=== PATIENT | female | born 1950 | race Caucasian/White ===

== ENCOUNTER 2017-08-06 09:12 | Inpatient (IN) | payer MEDICARE, OTHER ==
[~2017-08-06] VITALS: Ht 160 cm; Wt 77.0 kg
[2017-08-06 09:57] LABS: Basophils # (auto) 0.1 uL; Basophils % (auto) 0.6 % (0.0-2.0); Eosinophils # (auto) 0.2 uL; Eosinophils % (auto) 1.1 % (0.0-7.0); Hematocrit 36.5 % (36.0-46.0); Hemoglobin 12.1 g/dL (12.2-16.2); Lymphocytes # (auto) 2.2 uL; Lymphocytes % (auto) 15.6 % (10.0-50.0); Mean Corpuscular Hemoglobin 30.7 pg (28.0-32.0); Mean Corpuscular Hgb Conc. 33.2 g/dL (32.0-36.0); Mean Corpuscular Volume 92.4 fL (80.0-100.0); Monocytes % (auto) 7.4 % (0.0-12.0); Neutrophils # (auto) 10.6 uL; Neutrophils % (auto) 75.3 % (37.0-80.0); Nucleated Red Blood Cells % 0.1 %; Platelet Count (auto) 405 10^3/uL (140-450); Red Blood Cells 3.95 10^6/uL (4.0-5.20); Red Cell Distribution Width 15.1 % (11.8-14.3)
[2017-08-06] MEDS ORDERED: SODIUM CHLORIDE 0.9% 1,000 ML IV ONE (10:13)
[2017-08-06 10:20] LABS: Alanine Aminotransferase 19 U/L (13-56); Albumin 3.9 g/dL (3.4-5.0); Alkaline Phosphatase 65 U/L (45-117); Anion Gap 9 (5-15); Aspartate Aminotransferase 19 U/L (15-37); BUN/Creatinine Ratio 20.5; Bilirubin, Total 0.3 mg/dL (0.2-1.0); Blood Urea Nitrogen 17 mg/dL (7-18); Calcium 8.8 mg/dL (8.5-10.1); Carbon Dioxide 25 mmol/L (21-32); Chloride 105 mmol/L (98-107); GFR African American 88 mL/min; GFR Non-African American 73 mL/min; Glucose 106 mg/dL (74-106); Magnesium 2.5 mg/dL (1.6-2.6); Potassium 3.7 mmol/L (3.5-5.1); Sodium 139 mmol/L (136-145); Total Protein 7.4 g/dL (6.4-8.2)
[2017-08-06 11:03] LABS: INR 0.95 (0.9-1.15); Partial Thromboplastin Time 31.7 sec (23.78-33.04); Prothrombin Time 10.2 sec (9.27-12.13)
[2017-08-06 12:30] LABS: Urine Bacteria NONE SEEN /hpf (None Seen); Urine Blood Negative /uL (Negative); Urine Specific Gravity 1.007 (1.001-1.035); Urine WBC 2 /hpf (0 - 5)
[2017-08-06] MEDS: SODIUM CHLORIDE 0.9% 1,000 ML IV SCH ×2 (15:18→23:30)
[2017-08-06] MEDS ORDERED: cefTRIAXone 1GM/10ml IVPUSH 10 ML IV ONE (15:30)
[2017-08-06] MEDS ORDERED: NITROGLYCERIN 0.4 MG SL TAB SL PRN (15:30)
[2017-08-06] MEDS ORDERED: MORPHINE SULFATE 4 MG/ML SYR/VIAL IV PRN ×2 (15:30)
[2017-08-06] MEDS ORDERED: ACETAMINOPHEN 500 MG TAB PO PRN (15:30)
[2017-08-06] MEDS ORDERED: LACTULOSE 20Gm/30ML SOLN PO PRN (15:30)
[2017-08-06] MEDS ORDERED: LORazepam 0.5 MG TAB PO PRN (15:30)
[2017-08-06 15:51] LABS: Amylase 64 U/L (25-115)
[2017-08-06 15:54] LABS: Creatine Kinase IFCC 206 U/L (26-192)
[2017-08-06 16:07] LABS: Alcohol, Urine < 3.0 mg/dL (0-5); Amphetamine Screen, Urine NEGATIVE (NEGATIVE); Barbiturate Scree,Urine NEGATIVE (NEGATIVE); Benzodiazephine Screen, Urine POSITIVE (NEGATIVE); Cannabinoid Screen, Urine NEGATIVE (NEGATIVE); Cocaine Screen, Urine NEGATIVE (NEGATIVE); Opiate Scree,Urine NEGATIVE (NEGATIVE); Phencyclidine Screen, Urine NEGATIVE (NEGATIVE)
[2017-08-06] MEDS: metroNIDAZOLE 500MG/100ML 100 ML IV SCH ×2 (16:13→22:33)
[2017-08-06 18:58] LABS: Hematocrit 30.4 % (36.0-46.0); Hemoglobin 10.3 g/dL (12.2-16.2)
[2017-08-06 21:00] VITALS: BP 109/60
[2017-08-06 21:50] VITALS: BP 109/60
[2017-08-06] MEDS: TEMAZEPAM 15 MG CAP PO PRN (22:31)
[2017-08-07] MEDS ORDERED: CARI-316 PO (00:51)
[2017-08-07] MEDS ORDERED: TRAZ50TA2 PO (00:51)
[2017-08-07] MEDS ORDERED: OXAP-61 PO (00:51)
[2017-08-07] MEDS ORDERED: [UNRECOGNIZED DRUG - CODE] PO (00:51)
[2017-08-07 00:55] LABS: Hemoglobin 9.2 g/dL (12.2-16.2)
[2017-08-07] MEDS: metroNIDAZOLE 500MG/100ML 100 ML IV SCH ×4 (04:16→21:39)
[2017-08-07 04:45] VITALS: BP 120/67
[2017-08-07 05:40] LABS: Basophils # (auto) 0.1 uL; Basophils % (auto) 0.9 % (0.0-2.0); Eosinophils # (auto) 0.1 uL; Eosinophils % (auto) 1.6 % (0.0-7.0); Hematocrit 26.2 % (36.0-46.0); Lymphocytes # (auto) 2.6 uL; Lymphocytes % (auto) 31.8 % (10.0-50.0); Mean Corpuscular Hemoglobin 31.6 pg (28.0-32.0); Mean Corpuscular Hgb Conc. 34.2 g/dL (32.0-36.0); Mean Corpuscular Volume 92.4 fL (80.0-100.0); Monocytes # (auto) 0.8 uL; Monocytes % (auto) 9.3 % (0.0-12.0); Neutrophils # (auto) 4.6 uL; Neutrophils % (auto) 56.4 % (37.0-80.0); Platelet Count (auto) 283 10^3/uL (140-450); Red Blood Cells 2.84 10^6/uL (4.0-5.20); Red Cell Distribution Width 14.3 % (11.8-14.3); White Blood Cell 8.2 10^3/uL (4.4-10.8)
[2017-08-07 06:07] LABS: Cholesterol 176 mg/dL (< 200); HDL Cholesterol 46 mg/dL (40-59); LDL Cholesterol 110 mg/dL (< 100); Triglycerides 94 mg/dL (< 150)
[2017-08-07] MEDS: HYDROcodone-ACET 5/325MG TAB PO PRN ×2 (07:39→13:32)
[2017-08-07 08:34] LABS: Carcinoembryonic Antigen 2.03 ng/mL (<5.0 OR =); Folate (Folic Acid) 13.76 ng/mL (5.38-24)
[2017-08-07 08:48] VITALS: BP 98/59
[2017-08-07] MEDS: SODIUM CHLORIDE 0.9% 1,000 ML IV SCH ×2 (09:25→17:25)
[2017-08-07] MEDS: PANTOPRAZOLE 40 MG TAB PO SCH (09:36)
[2017-08-07] MEDS: ENOXAPARIN SOD 40 MG/0.4 ML SYRINGE SC SCH (09:36)
[2017-08-07] MEDS: cefTRIAXone 1GM/10ml IVPUSH 10 ML IV SCH (09:36)
[2017-08-07] MEDS ORDERED: MORPHINE SULFATE 8mg/ml INJ SDV IV PRN (09:45)
[2017-08-07] MEDS: MORPHINE SULFATE 8mg/ml INJ SDV IV PRN ×4 (10:11→19:10)
[2017-08-07] MEDS: PROMETHAZINE HCL 25 MG/ML 1ML IV PRN (10:11)
[2017-08-07 12:00] VITALS: BP 113/54
[2017-08-07 12:01] LABS: Free T3 2.52 pg/mL (2.3-4.2); Free T4 (Free Thyroxine) 0.97 ng/dL (0.89-1.76)
[2017-08-07] MEDS ORDERED: GOLYTELY 4L KIT PO ONE (13:15)
[2017-08-07 14:57] LABS: Hematocrit 26.4 % (36.0-46.0)
[2017-08-07 17:00] VITALS: BP 133/49
[2017-08-07 22:00] VITALS: BP 116/51
[2017-08-07] MEDS ORDERED: CARISOPRODOL 350 MG TAB PO SCH (22:00)
[2017-08-07] MEDS: TEMAZEPAM 15 MG CAP PO PRN (22:06)
[2017-08-08] MEDS: SODIUM CHLORIDE 0.9% 1,000 ML IV SCH ×2 (03:40→10:39)
[2017-08-08] MEDS: metroNIDAZOLE 500MG/100ML 100 ML IV SCH ×2 (03:41→10:40)
[2017-08-08 05:10] VITALS: BP 102/53
[2017-08-08] MEDS ORDERED: GOLYTELY 4L KIT PO ONE (06:00)
[2017-08-08 06:25] LABS: Basophils # (auto) 0.1 uL; Eosinophils # (auto) 0.2 uL; Lymphocytes # (auto) 2.5 uL; Monocytes # (auto) 0.8 uL; White Blood Cell 8.9 10^3/uL (4.4-10.8)
[2017-08-08 06:27] LABS: Eosinophils % (auto) 2.7 % (0.0-7.0); Hematocrit 23.3 % (36.0-46.0); Lymphocytes % (auto) 27.6 % (10.0-50.0); Mean Corpuscular Hemoglobin 31.7 pg (28.0-32.0); Mean Corpuscular Hgb Conc. 34.2 g/dL (32.0-36.0); Mean Corpuscular Volume 92.7 fL (80.0-100.0); Monocytes % (auto) 8.6 % (0.0-12.0); Neutrophils # (auto) 5.4 uL; Neutrophils % (auto) 60.1 % (37.0-80.0); Platelet Count (auto) 274 10^3/uL (140-450); Red Blood Cells 2.51 10^6/uL (4.0-5.20); Red Cell Distribution Width 14.7 % (11.8-14.3)
[2017-08-08 06:43] LABS: Calcium 7.4 mg/dL (8.5-10.1); Potassium 3.4 mmol/L (3.5-5.1)
[2017-08-08 06:45] LABS: BUN/Creatinine Ratio 14.8
[2017-08-08] MEDS: HYDROcodone-ACET 5/325MG TAB PO PRN ×2 (07:38→13:47)
[2017-08-08] MEDS ORDERED: NALOXONE HCL 0.4 MG/ML VIAL ONE (08:16)
[2017-08-08] MEDS ORDERED: FLUMAZENIL 0.1 MG/ML INJ 10ML MDV IV ONE (08:16)
[2017-08-08] MEDS ORDERED: SODIUM CHLORIDE LOCK 10 ML ONE (08:16)
[2017-08-08] MEDS ORDERED: diphenhdrAMINE HCL 50 MG/1 ML VL ONE (08:17)
[2017-08-08 08:42] VITALS: BP 98/63
[2017-08-08] MEDS ORDERED: traZODone HCL 50 MG TAB PO SCH (10:00)
[2017-08-08] MEDS: cefTRIAXone 1GM/10ml IVPUSH 10 ML IV SCH (10:39)
[2017-08-08] MEDS ORDERED: CARISOPRODOL 350 MG TAB PO ONE (10:45)
[2017-08-08] MEDS ORDERED: POTASSIUM CHL 20MEQ/100ML 100 ML IV ONE (11:00)
[2017-08-08] MEDS: MIDAZOLAM HCL 5 MG/ML-1ML VIAL ONE ×3 (11:55→12:11)
[2017-08-08] MEDS: fentaNYL CITRATE 100 MCG/2 ML VL ONE ×3 (11:55→12:11)
[2017-08-08] MEDS: PANTOPRAZOLE 40 MG TAB PO SCH (13:45)
[2017-08-08] MEDS: ENOXAPARIN SOD 40 MG/0.4 ML SYRINGE SC SCH (13:46)
[2017-08-08] MEDS: PROMETHAZINE HCL 25 MG/ML 1ML IV PRN (13:47)
[2017-08-08] MEDS: MORPHINE SULFATE 8mg/ml INJ SDV IV PRN ×2 (13:48→17:16)
[2017-08-08 14:13] LABS: Hematocrit 24.4 % (36.0-46.0); Hemoglobin 8.3 g/dL (12.2-16.2)
[2017-08-08 14:51] VITALS: BP 98/63
[2017-08-08 17:00] VITALS: BP 125/67
[2017-08-08 18:10] VITALS: BP 104/67
[2017-08-08 18:42] LABS: Hematocrit 28.9 % (36.0-46.0); Hemoglobin 9.6 g/dL (12.2-16.2)
[2017-08-08 20:19] VITALS: BP 104/67
[2017-08-08] MEDS ORDERED: CARISOPRODOL 350 MG TAB PO SCH (22:00)
== END 2017-08-08 21:20 | disposition home or self-care (01) | DRG 378 ==
LOC: ER 09:12 → TELE 09:13 → TELE-EAST 20:38
PROVIDERS: ADMIT Internal Medicine; ATTEND Internal Medicine
PROC: 30233N1 Transfusion of Nonautologous Red Blood Cells into Peripheral Vein, Percutaneous Approach (ICD-10-PCS; 2017-08-08)
PROC: 0DJD8ZZ Inspection of Lower Intestinal Tract, Via Natural or Artificial Opening Endoscopic (ICD-10-PCS; principal; 2017-08-08 11:47)
DX: K57.31 Diverticulosis of large intestine without perforation or abscess with bleeding (principal); D62 Acute posthemorrhagic anemia; E03.9 Hypothyroidism, unspecified; M79.7 Fibromyalgia; G47.00 Insomnia, unspecified; K59.00 Constipation, unspecified; K64.8 Other hemorrhoids; F32.9 Major depressive disorder, single episode, unspecified; F41.9 Anxiety disorder, unspecified; K60.2 Anal fissure, unspecified; Z80.0 Family history of malignant neoplasm of digestive organs; Z82.49 Family history of ischemic heart disease and other diseases of the circulatory system; Z90.89 Acquired absence of other organs; Z88.5 Allergy status to narcotic agent; Z91.012 Allergy to eggs; Z71.3 Dietary counseling and surveillance
CPT/HCPCS: 36415; 71046; 74176; 76775; 80048; 80053; 80061; 80307; 81001; 82150; 82378; 82550; 82607; 82746; 83690; 83735; 84439; 84443; 84481; 84484; 85014; 85018; 85025; 85045; 85610; 85652; 85730; 86850; 86900; 86901; 86920; 93005; 94761; 96361; 96374; J2250; J2270; J3480; J3490

== ENCOUNTER 2019-08-13 17:05 | Inpatient (IN) | payer MEDICARE, OTHER ==
[~2019-08-13] VITALS: Ht 160 cm; Wt 81.6 kg
[~2019-08-13 17:05] MED LIST: CARI350T22 PO; OXAP-61 PO; TRAZ50TA2 PO; [UNRECOGNIZED DRUG - CODE] PO
[2019-08-13] MEDS ORDERED: SODIUM CHLORIDE 0.9% 500 ML IVB ONE (17:25)
[2019-08-13] MEDS ORDERED: PANTOPRAZOLE 40 MG/10 ML VIAL INJ IV STA (17:25)
[2019-08-13 18:17] LABS: Basophils # (auto) 0 10 ^3/uL (0-0.2); Basophils % (auto) 0.2 % (0.0-2.0); Eosinophils # (auto) 0 10 ^3/uL (0-0.8); Eosinophils % (auto) 0.2 % (0.0-7.0); Hematocrit 36.8 % (36.0-46.0); Hemoglobin 12.1 g/dL (12.2-16.2); Lymphocytes # (auto) 1.2 10 ^3/uL (0.4-5.4); Lymphocytes % (auto) 7.7 % (10.0-50.0); Mean Corpuscular Hemoglobin 29.7 pg (28.0-32.0); Mean Corpuscular Hgb Conc. 32.9 g/dL (32.0-36.0); Mean Corpuscular Volume 90.3 fL (80.0-100.0); Monocytes # (auto) 0.5 10 ^3/uL (0-1.3); Neutrophils # (auto) 13.9 10 ^3/uL (1.6-8.6); Neutrophils % (auto) 88.9 % (37.0-80.0); Platelet Count (auto) 386 10^3/uL (140-450); Red Blood Cells 4.08 10^6/uL (4.0-5.20); Red Cell Distribution Width 14.5 % (11.8-14.3); White Blood Cell 15.6 10^3/uL (4.4-10.8)
[2019-08-13 18:30] LABS: Albumin 3.7 g/dL (3.4-5.0); Anion Gap 9 (5-15); Blood Urea Nitrogen 18 mg/dL (7-18); Calcium 9.3 mg/dL (8.5-10.1); Carbon Dioxide 21 mmol/L (21-32); Chloride 108 mmol/L (98-107); Glucose 117 mg/dL (74-106); Potassium 3.5 mmol/L (3.5-5.1); Sodium 138 mmol/L (136-145)
[2019-08-13 18:35] LABS: Alanine Aminotransferase 20 U/L (13-56); Alkaline Phosphatase 82 U/L (45-117); Aspartate Aminotransferase 16 U/L (15-37); BUN/Creatinine Ratio 24.3; Bilirubin, Total 0.4 mg/dL (0.2-1.0); GFR African American 100 mL/min; GFR Non-African American 82 mL/min
[2019-08-13 19:27] LABS: Urine Bacteria NONE SEEN /hpf (None Seen); Urine Blood Negative /uL (Negative); Urine Mucus FEW (None Seen); Urine Specific Gravity 1.015 (1.001-1.035); Urine WBC 8 /hpf (0 - 5)
[2019-08-13] MEDS ORDERED: metroNIDAZOLE 500MG/100ML 100 ML IV ONE ×2 (20:00→22:45)
[2019-08-13] MEDS ORDERED: LORazepam 2MG/ML-1ML VIAL IV ONE (22:45)
[2019-08-13] MEDS ORDERED: cefTRIAXone 1GM/50ML D5W 50 ML IV ONE (22:45)
[2019-08-14 00:04] LABS: INR 1.06 (0.9-1.15); Partial Thromboplastin Time 32.5 sec (23.64-32.05)
[2019-08-14] MEDS ORDERED: ONDANSETRON HCL 4 MG/2 ML VIAL IV ONE (00:45)
[2019-08-14] MEDS ORDERED: MORPHINE SULFATE 4 MG/ML SYR/VIAL IV ONE (00:45)
[2019-08-14] MEDS ORDERED: NITROGLYCERIN 0.4 MG SL TAB SL PRN (01:00)
[2019-08-14] MEDS: SODIUM CHLORIDE 0.9% 1,000 ML IV SCH ×3 (01:00→22:50)
[2019-08-14] MEDS ORDERED: MORPHINE SULF INJ 2 MG/ML SYRINGE 1ML IV PRN (01:00)
[2019-08-14 05:00] VITALS: BP 114/65
[2019-08-14] MEDS ORDERED: SIMV-8 PO (05:15)
[2019-08-14] MEDS ORDERED: MELO1TAB56 PO (05:15)
[2019-08-14] MEDS: metroNIDAZOLE 500MG/100ML 100 ML IV SCH ×3 (06:17→22:44)
[2019-08-14 09:55] LABS: Albumin 3.3 g/dL (3.4-5.0); Calcium 8.3 mg/dL (8.5-10.1); Magnesium 2.5 mg/dL (1.6-2.6)
[2019-08-14] MEDS: PANTOPRAZOLE 40 MG/10 ML VIAL INJ IV SCH (09:58)
[2019-08-14] MEDS: cefTRIAXone 1GM/50ML D5W 50 ML IV SCH (09:59)
[2019-08-14 10:02] LABS: BUN/Creatinine Ratio 26.9; Bilirubin, Total 0.3 mg/dL (0.2-1.0); Phosphorus 2.1 mg/dL (2.5-4.90); Pre Albumin 18.5 mg/dL (20.0-40.0); Total Protein 7.3 g/dL (6.4-8.2)
[2019-08-14 13:00] VITALS: BP 112/50
[2019-08-14] MEDS ORDERED: TPN PER PHARMACY 0 ML IV SCH (14:30)
[2019-08-14] MEDS ORDERED: POTASSIUM PHOSP 26.4MEQ(18MMOL) IN NS 100 ML IV ONE (15:00)
[2019-08-14 17:00] VITALS: BP 123/59
[2019-08-14] MEDS ORDERED: CLINIMIX PER PHARMACY IV NR (20:00)
[2019-08-14] MEDS ORDERED: POTASSIUM CHL 20MEQ/100ML 100 ML IV ONE (21:30)
[2019-08-14 22:33] VITALS: BP 126/66
[2019-08-14] MEDS: ONDANSETRON HCL 4 MG/2 ML VIAL IV PRN (22:40)
[2019-08-14] MEDS: MORPHINE SULFATE 4 MG/ML SYR/VIAL IV PRN (22:40)
[2019-08-14] MEDS: InsuLIN REG 1unit/0.01ml Soln (100units/ml) SC SCH (23:25)
[2019-08-14] MEDS: ACCU-CHEK COMFORT CURVE STRIP VI SCH (23:25)
[2019-08-15] MEDS ORDERED: DEXTROSE (50%) 50ML SYRG IV SCH
[2019-08-15 05:00] VITALS: BP 120/66
[2019-08-15] MEDS: metroNIDAZOLE 500MG/100ML 100 ML IV SCH ×3 (05:45→22:38)
[2019-08-15] MEDS: ACCU-CHEK COMFORT CURVE STRIP VI SCH ×4 (05:45→23:52)
[2019-08-15] MEDS: InsuLIN REG 1unit/0.01ml Soln (100units/ml) SC SCH ×4 (05:50→23:52)
[2019-08-15 06:02] LABS: Basophils # (auto) 0.1 10 ^3/uL (0-0.2); Basophils % (auto) 0.6 % (0.0-2.0); Eosinophils # (auto) 0.2 10 ^3/uL (0-0.8); Hemoglobin 10.7 g/dL (12.2-16.2); Lymphocytes # (auto) 1.7 10 ^3/uL (0.4-5.4); Lymphocytes % (auto) 17.2 % (10.0-50.0); Mean Corpuscular Hemoglobin 30.7 pg (28.0-32.0); Mean Corpuscular Hgb Conc. 33.6 g/dL (32.0-36.0); Mean Corpuscular Volume 91.3 fL (80.0-100.0); Monocytes # (auto) 0.8 10 ^3/uL (0-1.3); Monocytes % (auto) 7.5 % (0.0-12.0); Neutrophils # (auto) 7.3 10 ^3/uL (1.6-8.6); Neutrophils % (auto) 72.7 % (37.0-80.0); Platelet Count (auto) 316 10^3/uL (140-450); Red Cell Distribution Width 14.8 % (11.8-14.3); White Blood Cell 10.1 10^3/uL (4.4-10.8)
[2019-08-15 06:21] LABS: Albumin 3.1 g/dL (3.4-5.0); Calcium 6.9 mg/dL (8.5-10.1); Magnesium 2.2 mg/dL (1.6-2.6); Potassium 3.1 mmol/L (3.5-5.1)
[2019-08-15 06:26] LABS: BUN/Creatinine Ratio 24.1; Bilirubin, Total 0.3 mg/dL (0.2-1.0); Phosphorus 1.9 mg/dL (2.5-4.90); Total Protein 6.6 g/dL (6.4-8.2)
[2019-08-15 09:00] VITALS: BP 127/73
[2019-08-15] MEDS: PANTOPRAZOLE 40 MG/10 ML VIAL INJ IV SCH (10:10)
[2019-08-15] MEDS: cefTRIAXone 1GM/50ML D5W 50 ML IV SCH (10:10)
[2019-08-15] MEDS ORDERED: LIDOCAINE 1% (LOCAL ANESTH.) PF 5ml SDV ID ONE (11:45)
[2019-08-15] MEDS: SODIUM CHLORIDE 0.9% 1,000 ML IV SCH ×2 (12:26→23:52)
[2019-08-15] MEDS: POTASSIUM CHL 20MEQ/100ML 100 ML IV SCH ×2 (12:26→15:54)
[2019-08-15 13:00] VITALS: BP 127/66
[2019-08-15 17:00] VITALS: BP 125/58
[2019-08-15] MEDS ORDERED: TPN PER PHARMACY IV NR ×17 (20:00)
[2019-08-15 21:30] VITALS: BP 125/70
[2019-08-15] MEDS ORDERED: LORazepam 0.5 MG TAB PO SCH (22:00)
[2019-08-15] MEDS: SODIUM CHLOR 0.9% PF (SALINE LOCK) 10ML VIAL/SYR IV SCH (22:32)
[2019-08-16] MEDS: LORazepam 2MG/ML-1ML VIAL IV PRN ×2 (00:32→11:57)
[2019-08-16 05:00] VITALS: BP 142/56
[2019-08-16 05:48] LABS: Basophils # (auto) 0.1 10 ^3/uL (0-0.2); Basophils % (auto) 1.5 % (0.0-2.0); Eosinophils # (auto) 0.3 10 ^3/uL (0-0.8); Eosinophils % (auto) 2.5 % (0.0-7.0); Hematocrit 34.2 % (36.0-46.0); Hemoglobin 11.5 g/dL (12.2-16.2); Lymphocytes # (auto) 1.8 10 ^3/uL (0.4-5.4); Lymphocytes % (auto) 17.8 % (10.0-50.0); Mean Corpuscular Hgb Conc. 33.7 g/dL (32.0-36.0); Mean Corpuscular Volume 88.9 fL (80.0-100.0); Monocytes % (auto) 10.1 % (0.0-12.0); Neutrophils # (auto) 6.7 10 ^3/uL (1.6-8.6); Neutrophils % (auto) 68.1 % (37.0-80.0); Platelet Count (auto) 354 10^3/uL (140-450); Red Blood Cells 3.85 10^6/uL (4.0-5.20); White Blood Cell 9.9 10^3/uL (4.4-10.8)
[2019-08-16] MEDS: InsuLIN REG 1unit/0.01ml Soln (100units/ml) SC SCH ×3 (06:00→18:00)
[2019-08-16] MEDS: ACCU-CHEK COMFORT CURVE STRIP VI SCH ×3 (06:05→18:08)
[2019-08-16] MEDS: metroNIDAZOLE 500MG/100ML 100 ML IV SCH ×3 (06:05→21:44)
[2019-08-16 06:08] LABS: Potassium 3.5 mmol/L (3.5-5.1)
[2019-08-16 06:13] LABS: Albumin 3.3 g/dL (3.4-5.0); BUN/Creatinine Ratio 15.9; Bilirubin, Total 0.3 mg/dL (0.2-1.0); Calcium 7.8 mg/dL (8.5-10.1); Magnesium 2.5 mg/dL (1.6-2.6); Total Protein 7.2 g/dL (6.4-8.2)
[2019-08-16 09:00] VITALS: BP 110/62
[2019-08-16] MEDS: cefTRIAXone 1GM/50ML D5W 50 ML IV SCH (09:10)
[2019-08-16] MEDS: PANTOPRAZOLE 40 MG/10 ML VIAL INJ IV SCH (09:10)
[2019-08-16] MEDS: SODIUM CHLOR 0.9% PF (SALINE LOCK) 10ML VIAL/SYR IV SCH ×2 (09:11→21:44)
[2019-08-16] MEDS ORDERED: POTASSIUM PHOSP 22MEQ(15MMOLE) in NS 100 ML IV ONE (11:00)
[2019-08-16] MEDS: SODIUM CHLORIDE 0.9% 1,000 ML IV SCH (11:56)
[2019-08-16 13:01] VITALS: BP 137/70
[2019-08-16 16:59] VITALS: BP 139/94
[2019-08-16] MEDS ORDERED: TPN PER PHARMACY IV NR ×8 (20:00)
[2019-08-16] MEDS: ONDANSETRON HCL 4 MG/2 ML VIAL IV PRN (22:19)
[2019-08-16] MEDS: MORPHINE SULFATE 4 MG/ML SYR/VIAL IV PRN (22:19)
[2019-08-16 23:05] VITALS: BP 130/62
[2019-08-17] MEDS: LORazepam 2MG/ML-1ML VIAL IV PRN ×2 (00:12→20:39)
[2019-08-17] MEDS: SODIUM CHLORIDE 0.9% 1,000 ML IV SCH ×3 (00:33→20:40)
[2019-08-17] MEDS: ACCU-CHEK COMFORT CURVE STRIP VI SCH ×4 (00:34→17:17)
[2019-08-17 05:43] VITALS: BP 126/67
[2019-08-17 05:49] LABS: Basophils # (auto) 0.1 10 ^3/uL (0-0.2); Basophils % (auto) 0.8 % (0.0-2.0); Eosinophils # (auto) 0.4 10 ^3/uL (0-0.8); Eosinophils % (auto) 5.2 % (0.0-7.0); Hematocrit 36.9 % (36.0-46.0); Lymphocytes # (auto) 1.7 10 ^3/uL (0.4-5.4); Lymphocytes % (auto) 20.3 % (10.0-50.0); Mean Corpuscular Hemoglobin 29.4 pg (28.0-32.0); Mean Corpuscular Hgb Conc. 32.6 g/dL (32.0-36.0); Mean Corpuscular Volume 90.1 fL (80.0-100.0); Monocytes # (auto) 0.9 10 ^3/uL (0-1.3); Monocytes % (auto) 10.3 % (0.0-12.0); Neutrophils # (auto) 5.4 10 ^3/uL (1.6-8.6); Neutrophils % (auto) 63.4 % (37.0-80.0); Platelet Count (auto) 364 10^3/uL (140-450); Red Cell Distribution Width 14.7 % (11.8-14.3); White Blood Cell 8.6 10^3/uL (4.4-10.8)
[2019-08-17] MEDS: InsuLIN REG 1unit/0.01ml Soln (100units/ml) SC SCH ×4 (06:00→17:17)
[2019-08-17] MEDS: metroNIDAZOLE 500MG/100ML 100 ML IV SCH ×3 (06:05→22:00)
[2019-08-17 06:07] LABS: Albumin 3.3 g/dL (3.4-5.0); Magnesium 2.6 mg/dL (1.6-2.6); Potassium 3.6 mmol/L (3.5-5.1)
[2019-08-17 06:12] LABS: BUN/Creatinine Ratio 18.5; Bilirubin, Total 0.3 mg/dL (0.2-1.0); Phosphorus 2.9 mg/dL (2.5-4.90); Total Protein 7.2 g/dL (6.4-8.2)
[2019-08-17] MEDS: ONDANSETRON HCL 4 MG/2 ML VIAL IV PRN (06:31)
[2019-08-17] MEDS: MORPHINE SULFATE 4 MG/ML SYR/VIAL IV PRN ×2 (06:31→18:54)
[2019-08-17] MEDS: PANTOPRAZOLE 40 MG/10 ML VIAL INJ IV SCH (08:22)
[2019-08-17] MEDS: cefTRIAXone 1GM/50ML D5W 50 ML IV SCH (08:22)
[2019-08-17] MEDS: SODIUM CHLOR 0.9% PF (SALINE LOCK) 10ML VIAL/SYR IV SCH ×2 (08:23→22:00)
[2019-08-17 09:09] VITALS: BP 128/64
[2019-08-17 13:00] VITALS: BP_SYST 128; BP_SYST 137; BP_DIAS 73
[2019-08-17 17:09] VITALS: BP 117/74
[2019-08-17] MEDS: TPN PER PHARMACY IV NR ×7 (19:59)
[2019-08-17 22:00] VITALS: BP 115/65
[2019-08-18] MEDS: ACCU-CHEK COMFORT CURVE STRIP VI SCH ×4 (00:17→18:04)
[2019-08-18 05:00] VITALS: BP 122/60
[2019-08-18] MEDS: metroNIDAZOLE 500MG/100ML 100 ML IV SCH ×3 (05:41→21:56)
[2019-08-18] MEDS: InsuLIN REG 1unit/0.01ml Soln (100units/ml) SC SCH ×4 (05:49→18:00)
[2019-08-18 06:15] LABS: Albumin 3.1 g/dL (3.4-5.0); Calcium 8.2 mg/dL (8.5-10.1); Magnesium 2.4 mg/dL (1.6-2.6); Potassium 3.9 mmol/L (3.5-5.1)
[2019-08-18 06:17] LABS: BUN/Creatinine Ratio 22.9; Bilirubin, Total 0.3 mg/dL (0.2-1.0); Phosphorus 2.7 mg/dL (2.5-4.90); Total Protein 6.9 g/dL (6.4-8.2)
[2019-08-18] MEDS: SODIUM CHLOR 0.9% PF (SALINE LOCK) 10ML VIAL/SYR IV SCH ×2 (08:30→22:00)
[2019-08-18] MEDS: SODIUM CHLORIDE 0.9% 1,000 ML IV SCH ×2 (08:30→21:55)
[2019-08-18] MEDS: cefTRIAXone 1GM/50ML D5W 50 ML IV SCH (08:30)
[2019-08-18] MEDS: PANTOPRAZOLE 40 MG/10 ML VIAL INJ IV SCH (08:30)
[2019-08-18] MEDS: MORPHINE SULFATE 4 MG/ML SYR/VIAL IV PRN ×2 (08:31→18:05)
[2019-08-18 09:00] VITALS: BP 118/57
[2019-08-18] MEDS: ONDANSETRON HCL 4 MG/2 ML VIAL IV PRN ×2 (10:54→18:05)
[2019-08-18] MEDS ORDERED: IOHEXOL 300 MG/ML 100ML BOTTLE IJ ONE (12:55)
[2019-08-18] MEDS ORDERED: OMNIPAQUE ORAL SOLN 500ml 12mg/ml PO ONE (12:55)
[2019-08-18 13:00] VITALS: BP 125/67
[2019-08-18 17:00] VITALS: BP 116/59
[2019-08-18] MEDS: TPN PER PHARMACY IV NR ×7 (19:52)
[2019-08-18] MEDS ORDERED: TPN PER PHARMACY IV NR ×8 (20:00)
[2019-08-18 22:00] VITALS: BP 132/71
[2019-08-19] MEDS: MORPHINE SULFATE 4 MG/ML SYR/VIAL IV PRN ×3 (04:27→22:55)
[2019-08-19] MEDS: ONDANSETRON HCL 4 MG/2 ML VIAL IV PRN ×3 (04:28→22:55)
[2019-08-19 05:00] VITALS: BP 124/60
[2019-08-19] MEDS: ACCU-CHEK COMFORT CURVE STRIP VI SCH ×4 (06:00→18:02)
[2019-08-19] MEDS: InsuLIN REG 1unit/0.01ml Soln (100units/ml) SC SCH ×4 (06:00→18:00)
[2019-08-19] MEDS: metroNIDAZOLE 500MG/100ML 100 ML IV SCH ×3 (06:32→22:28)
[2019-08-19 06:59] LABS: Potassium 3.8 mmol/L (3.5-5.1)
[2019-08-19 07:05] LABS: Albumin 3.3 g/dL (3.4-5.0); Bilirubin, Total 0.3 mg/dL (0.2-1.0); Calcium 8.5 mg/dL (8.5-10.1); Phosphorus 3.1 mg/dL (2.5-4.90); Total Protein 7.2 g/dL (6.4-8.2)
[2019-08-19 08:00] VITALS: BP 117/67
[2019-08-19 09:28] VITALS: BP 117/67
[2019-08-19] MEDS: PANTOPRAZOLE 40 MG/10 ML VIAL INJ IV SCH (09:32)
[2019-08-19] MEDS: cefTRIAXone 1GM/50ML D5W 50 ML IV SCH (09:32)
[2019-08-19] MEDS: SODIUM CHLOR 0.9% PF (SALINE LOCK) 10ML VIAL/SYR IV SCH ×2 (09:33→22:29)
[2019-08-19] MEDS: SODIUM CHLORIDE 0.9% 1,000 ML IV SCH ×2 (09:33→21:27)
[2019-08-19 13:00] VITALS: BP 121/63
[2019-08-19 16:54] VITALS: BP 147/74
[2019-08-19] MEDS ORDERED: TPN PER PHARMACY IV NR ×8 (20:00)
[2019-08-19 21:53] VITALS: BP 122/75
[2019-08-20 05:00] VITALS: BP 128/57
[2019-08-20] MEDS: ACCU-CHEK COMFORT CURVE STRIP VI SCH ×4 (06:00→18:16)
[2019-08-20] MEDS: InsuLIN REG 1unit/0.01ml Soln (100units/ml) SC SCH ×4 (06:00→18:00)
[2019-08-20] MEDS: metroNIDAZOLE 500MG/100ML 100 ML IV SCH ×3 (06:23→21:43)
[2019-08-20 06:25] LABS: Potassium 3.8 mmol/L (3.5-5.1)
[2019-08-20 06:31] LABS: Albumin 3.1 g/dL (3.4-5.0); BUN/Creatinine Ratio 28.6; Bilirubin, Total 0.2 mg/dL (0.2-1.0); Calcium 8.7 mg/dL (8.5-10.1); Magnesium 2.3 mg/dL (1.6-2.6); Phosphorus 3.5 mg/dL (2.5-4.90)
[2019-08-20] MEDS ORDERED: LIDOCAINE 2%HCL (LOCAL ANESTH.) INJ 20ML MDV ONE (07:34)
[2019-08-20 08:55] VITALS: BP 121/68
[2019-08-20] MEDS ORDERED: fentaNYL CITRATE 100 MCG/2 ML VL IV ONE (09:00)
[2019-08-20] MEDS ORDERED: MIDAZOLAM HCL 1MG/1ML-2 ML VIAL IV ONE (09:00)
[2019-08-20] MEDS: PANTOPRAZOLE 40 MG/10 ML VIAL INJ IV SCH (11:29)
[2019-08-20] MEDS: ONDANSETRON HCL 4 MG/2 ML VIAL IV PRN ×2 (11:29→21:06)
[2019-08-20] MEDS: MORPHINE SULFATE 4 MG/ML SYR/VIAL IV PRN ×2 (11:30→21:05)
[2019-08-20] MEDS: cefTRIAXone 1GM/50ML D5W 50 ML IV SCH (11:30)
[2019-08-20] MEDS: SODIUM CHLOR 0.9% PF (SALINE LOCK) 10ML VIAL/SYR IV SCH ×2 (11:34→21:44)
[2019-08-20] MEDS: SODIUM CHLORIDE 0.9% 1,000 ML IV SCH ×2 (11:34→20:00)
[2019-08-20 13:04] VITALS: BP 153/65
[2019-08-20 17:21] VITALS: BP 121/70
[2019-08-20] MEDS ORDERED: TPN PER PHARMACY IV NR ×8 (20:00)
[2019-08-20 22:00] VITALS: BP 122/67
[2019-08-21 05:27] LABS: Basophils # (auto) 0.1 10 ^3/uL (0-0.2); Eosinophils # (auto) 0.4 10 ^3/uL (0-0.8); Hematocrit 37.2 % (36.0-46.0); Hemoglobin 12.4 g/dL (12.2-16.2); Lymphocytes # (auto) 1.5 10 ^3/uL (0.4-5.4); Mean Corpuscular Hemoglobin 29.8 pg (28.0-32.0); Mean Corpuscular Hgb Conc. 33.4 g/dL (32.0-36.0); Mean Corpuscular Volume 89.1 fL (80.0-100.0); Monocytes % (auto) 12.8 % (0.0-12.0); Neutrophils # (auto) 4.7 10 ^3/uL (1.6-8.6); Neutrophils % (auto) 61.2 % (37.0-80.0); Nucleated Red Blood Cells % 0.1 %; Platelet Count (auto) 356 10^3/uL (140-450); Red Blood Cells 4.17 10^6/uL (4.0-5.20); Red Cell Distribution Width 14.7 % (11.8-14.3); White Blood Cell 7.7 10^3/uL (4.4-10.8)
[2019-08-21 05:30] VITALS: BP 113/73
[2019-08-21 05:54] LABS: Albumin 3.2 g/dL (3.4-5.0); Calcium 8.6 mg/dL (8.5-10.1); Magnesium 2.3 mg/dL (1.6-2.6)
[2019-08-21] MEDS: InsuLIN REG 1unit/0.01ml Soln (100units/ml) SC SCH ×4 (06:00→18:00)
[2019-08-21] MEDS: ACCU-CHEK COMFORT CURVE STRIP VI SCH ×4 (06:00→19:35)
[2019-08-21 06:01] LABS: BUN/Creatinine Ratio 26.3; Bilirubin, Total 0.3 mg/dL (0.2-1.0); Phosphorus 3.1 mg/dL (2.5-4.90); Pre Albumin 19.6 mg/dL (20.0-40.0); Total Protein 7.2 g/dL (6.4-8.2)
[2019-08-21] MEDS: metroNIDAZOLE 500MG/100ML 100 ML IV SCH ×3 (06:19→22:00)
[2019-08-21 09:21] VITALS: BP 125/63
[2019-08-21] MEDS: PANTOPRAZOLE 40 MG/10 ML VIAL INJ IV SCH (09:33)
[2019-08-21] MEDS: SODIUM CHLOR 0.9% PF (SALINE LOCK) 10ML VIAL/SYR IV SCH ×2 (09:33→20:58)
[2019-08-21] MEDS: cefTRIAXone 1GM/50ML D5W 50 ML IV SCH (09:33)
[2019-08-21] MEDS: ONDANSETRON HCL 4 MG/2 ML VIAL IV PRN ×2 (11:57→19:35)
[2019-08-21] MEDS: MORPHINE SULFATE 4 MG/ML SYR/VIAL IV PRN ×2 (11:57→19:36)
[2019-08-21] MEDS: SODIUM CHLORIDE 0.9% 1,000 ML IV SCH (11:58)
[2019-08-21 13:00] VITALS: BP 127/55
[2019-08-21] MEDS: LORazepam 2MG/ML-1ML VIAL IV PRN (14:30)
[2019-08-21 16:58] VITALS: BP 125/55
[2019-08-21] MEDS ORDERED: TPN PER PHARMACY IV NR ×8 (20:00)
[2019-08-21] MEDS: TEMAZEPAM 15 MG CAP PO PRN (21:29)
[2019-08-21] MEDS ORDERED: LORazepam 2MG/ML-1ML VIAL IV PRN (21:45)
[2019-08-21 22:00] VITALS: BP 127/72
[2019-08-22] MEDS: ACCU-CHEK COMFORT CURVE STRIP VI SCH ×4 (01:43→14:07)
[2019-08-22 05:30] VITALS: BP 118/79
[2019-08-22] MEDS: InsuLIN REG 1unit/0.01ml Soln (100units/ml) SC SCH ×4 (06:00→17:59)
[2019-08-22 06:23] LABS: Potassium 3.7 mmol/L (3.5-5.1)
[2019-08-22] MEDS: metroNIDAZOLE 500MG/100ML 100 ML IV SCH ×3 (06:30→20:40)
[2019-08-22] MEDS: SODIUM CHLORIDE 0.9% 1,000 ML IV SCH ×2 (06:30→20:40)
[2019-08-22 06:42] LABS: BUN/Creatinine Ratio 24.1; Bilirubin, Total 0.2 mg/dL (0.2-1.0); Calcium 8.2 mg/dL (8.5-10.1); Phosphorus 2.5 mg/dL (2.5-4.90); Total Protein 6.7 g/dL (6.4-8.2)
[2019-08-22 08:00] VITALS: BP 132/74
[2019-08-22] MEDS: PANTOPRAZOLE 40 MG/10 ML VIAL INJ IV SCH (10:04)
[2019-08-22] MEDS: SODIUM CHLOR 0.9% PF (SALINE LOCK) 10ML VIAL/SYR IV SCH ×2 (10:04→20:41)
[2019-08-22] MEDS: cefTRIAXone 1GM/50ML D5W 50 ML IV SCH (10:04)
[2019-08-22] MEDS: MORPHINE SULFATE 4 MG/ML SYR/VIAL IV PRN ×2 (11:54→17:56)
[2019-08-22 14:00] VITALS: BP 138/67
[2019-08-22 17:00] VITALS: BP 124/69
[2019-08-22] MEDS ORDERED: TPN PER PHARMACY IV NR ×8 (20:00)
[2019-08-22] MEDS: TEMAZEPAM 15 MG CAP PO PRN (21:46)
[2019-08-22 21:56] VITALS: BP 126/75
[2019-08-23] MEDS: ACCU-CHEK COMFORT CURVE STRIP VI SCH ×4 (00:53→18:04)
[2019-08-23] MEDS: MORPHINE SULFATE 4 MG/ML SYR/VIAL IV PRN ×2 (04:29→20:32)
[2019-08-23] MEDS: ONDANSETRON HCL 4 MG/2 ML VIAL IV PRN ×2 (04:30→20:32)
[2019-08-23 05:00] VITALS: BP 125/66
[2019-08-23] MEDS: InsuLIN REG 1unit/0.01ml Soln (100units/ml) SC SCH ×4 (05:47→18:00)
[2019-08-23] MEDS: metroNIDAZOLE 500MG/100ML 100 ML IV SCH ×3 (05:47→21:06)
[2019-08-23 07:23] LABS: Potassium 3.8 mmol/L (3.5-5.1)
[2019-08-23 07:30] LABS: Albumin 3.3 g/dL (3.4-5.0); BUN/Creatinine Ratio 27.3; Bilirubin, Total 0.2 mg/dL (0.2-1.0); Calcium 8.7 mg/dL (8.5-10.1); Magnesium 2.2 mg/dL (1.6-2.6); Phosphorus 3.3 mg/dL (2.5-4.90); Total Protein 7.2 g/dL (6.4-8.2)
[2019-08-23 09:00] VITALS: BP 112/60
[2019-08-23] MEDS: cefTRIAXone 1GM/50ML D5W 50 ML IV SCH (09:18)
[2019-08-23] MEDS: PANTOPRAZOLE 40 MG/10 ML VIAL INJ IV SCH (10:55)
[2019-08-23] MEDS: SODIUM CHLOR 0.9% PF (SALINE LOCK) 10ML VIAL/SYR IV SCH ×2 (10:56→21:07)
[2019-08-23 13:00] VITALS: BP 118/71
[2019-08-23 17:00] VITALS: BP 97/53
[2019-08-23] MEDS: SODIUM CHLORIDE 0.9% 1,000 ML IV SCH (18:04)
[2019-08-23] MEDS ORDERED: TPN PER PHARMACY IV NR ×8 (20:00)
[2019-08-23 22:00] VITALS: BP 118/65
[2019-08-24] MEDS: ACCU-CHEK COMFORT CURVE STRIP VI SCH ×4 (00:30→18:15)
[2019-08-24 05:00] VITALS: BP 123/52
[2019-08-24] MEDS: InsuLIN REG 1unit/0.01ml Soln (100units/ml) SC SCH ×4 (05:29→18:00)
[2019-08-24] MEDS: metroNIDAZOLE 500MG/100ML 100 ML IV SCH ×3 (05:29→22:50)
[2019-08-24 06:16] LABS: Albumin 3.3 g/dL (3.4-5.0); BUN/Creatinine Ratio 27.8; Bilirubin, Total 0.2 mg/dL (0.2-1.0); Calcium 9.1 mg/dL (8.5-10.1); Magnesium 2.1 mg/dL (1.6-2.6); Phosphorus 3.8 mg/dL (2.5-4.90)
[2019-08-24] MEDS: SODIUM CHLORIDE 0.9% 1,000 ML IV SCH ×2 (07:20→20:26)
[2019-08-24 08:00] VITALS: BP 128/62
[2019-08-24] MEDS: SODIUM CHLOR 0.9% PF (SALINE LOCK) 10ML VIAL/SYR IV SCH ×2 (11:21→22:00)
[2019-08-24] MEDS: cefTRIAXone 1GM/50ML D5W 50 ML IV SCH (11:28)
[2019-08-24] MEDS: PANTOPRAZOLE 40 MG/10 ML VIAL INJ IV SCH (11:28)
[2019-08-24 12:00] VITALS: BP 128/76
[2019-08-24] MEDS: MORPHINE SULF INJ 2 MG/ML SYRINGE 1ML IV PRN (16:31)
[2019-08-24] MEDS: ONDANSETRON HCL 4 MG/2 ML VIAL IV PRN (16:31)
[2019-08-24 17:00] VITALS: BP 118/70
[2019-08-24] MEDS ORDERED: TPN PER PHARMACY IV NR ×9 (20:00)
[2019-08-24 21:54] VITALS: BP 105/62
[2019-08-24] MEDS: TEMAZEPAM 15 MG CAP PO PRN (22:51)
[2019-08-25] MEDS: ACCU-CHEK COMFORT CURVE STRIP VI SCH ×4 (01:05→18:20)
[2019-08-25 05:00] VITALS: BP 120/71
[2019-08-25 05:29] LABS: Potassium 4.1 mmol/L (3.5-5.1)
[2019-08-25 05:37] LABS: Albumin 3.1 g/dL (3.4-5.0); BUN/Creatinine Ratio 31.1; Bilirubin, Total 0.2 mg/dL (0.2-1.0); Calcium 8.8 mg/dL (8.5-10.1); Magnesium 2.1 mg/dL (1.6-2.6); Phosphorus 3.9 mg/dL (2.5-4.90); Total Protein 6.9 g/dL (6.4-8.2)
[2019-08-25] MEDS: InsuLIN REG 1unit/0.01ml Soln (100units/ml) SC SCH ×4 (06:00→18:00)
[2019-08-25] MEDS: metroNIDAZOLE 500MG/100ML 100 ML IV SCH ×3 (06:56→23:24)
[2019-08-25 09:00] VITALS: BP 117/62
[2019-08-25] MEDS: SODIUM CHLOR 0.9% PF (SALINE LOCK) 10ML VIAL/SYR IV SCH ×2 (10:24→22:00)
[2019-08-25] MEDS: PANTOPRAZOLE 40 MG/10 ML VIAL INJ IV SCH (10:25)
[2019-08-25] MEDS: cefTRIAXone 1GM/50ML D5W 50 ML IV SCH (11:16)
[2019-08-25] MEDS: ONDANSETRON HCL 4 MG/2 ML VIAL IV PRN ×2 (11:17→20:53)
[2019-08-25] MEDS: MORPHINE SULF INJ 2 MG/ML SYRINGE 1ML IV PRN ×2 (11:17→20:54)
[2019-08-25 13:00] VITALS: BP 114/59
[2019-08-25] MEDS: SODIUM CHLORIDE 0.9% 1,000 ML IV SCH (16:07)
[2019-08-25 17:00] VITALS: BP 106/57
[2019-08-25] MEDS ORDERED: TPN PER PHARMACY IV NR ×8 (20:00)
[2019-08-25 22:00] VITALS: BP 109/50
[2019-08-26] MEDS: MORPHINE SULF INJ 2 MG/ML SYRINGE 1ML IV PRN (04:38)
[2019-08-26 05:00] VITALS: BP 99/63
[2019-08-26] MEDS: InsuLIN REG 1unit/0.01ml Soln (100units/ml) SC SCH ×4 (05:53→17:52)
[2019-08-26] MEDS: ACCU-CHEK COMFORT CURVE STRIP VI SCH ×4 (05:53→17:52)
[2019-08-26 06:30] LABS: Basophils # (auto) 0.1 10 ^3/uL (0-0.2); Eosinophils # (auto) 0.4 10 ^3/uL (0-0.8); Hematocrit 33.9 % (36.0-46.0); Hemoglobin 11.5 g/dL (12.2-16.2); Lymphocytes % (auto) 20.8 % (10.0-50.0); Mean Corpuscular Hemoglobin 30.6 pg (28.0-32.0); Mean Corpuscular Volume 89.9 fL (80.0-100.0); Monocytes # (auto) 1.2 10 ^3/uL (0-1.3); Monocytes % (auto) 12.5 % (0.0-12.0); Neutrophils # (auto) 5.9 10 ^3/uL (1.6-8.6); Neutrophils % (auto) 61.7 % (37.0-80.0); Nucleated Red Blood Cells % 0.1 %; Platelet Count (auto) 369 10^3/uL (140-450); Red Blood Cells 3.77 10^6/uL (4.0-5.20); Red Cell Distribution Width 15.1 % (11.8-14.3); White Blood Cell 9.5 10^3/uL (4.4-10.8)
[2019-08-26 06:50] LABS: Albumin 3.2 g/dL (3.4-5.0); BUN/Creatinine Ratio 32.8; Bilirubin, Total 0.2 mg/dL (0.2-1.0); Calcium 8.6 mg/dL (8.5-10.1); Magnesium 2.4 mg/dL (1.6-2.6); Phosphorus 3.5 mg/dL (2.5-4.90); Total Protein 7.1 g/dL (6.4-8.2)
[2019-08-26] MEDS: metroNIDAZOLE 500MG/100ML 100 ML IV SCH ×2 (06:54→13:45)
[2019-08-26 09:00] VITALS: BP 107/58
[2019-08-26] MEDS: cefTRIAXone 1GM/50ML D5W 50 ML IV SCH (09:33)
[2019-08-26] MEDS: SODIUM CHLOR 0.9% PF (SALINE LOCK) 10ML VIAL/SYR IV SCH (09:33)
[2019-08-26] MEDS: PANTOPRAZOLE 40 MG/10 ML VIAL INJ IV SCH (09:33)
[2019-08-26] MEDS: SODIUM CHLORIDE 0.9% 1,000 ML IV SCH (09:34)
[2019-08-26 13:00] VITALS: BP 106/66
[2019-08-26 17:14] VITALS: BP 100/69
[2019-08-26 17:53] VITALS: BP 120/71
== END 2019-08-26 18:35 | disposition home health service (06) | DRG 872 ==
LOC: EDBD 17:05 → ER 17:05 → TELE 17:06 → TELE-WESTW 08-14 02:54
PROVIDERS: ADMIT Nurse Practitioner; ATTEND Family Medicine
PROC: 02HV33Z Insertion of Infusion Device into Superior Vena Cava, Percutaneous Approach (ICD-10-PCS; 2019-08-15)
PROC: 0W9J30Z Drainage of Pelvic Cavity with Drainage Device, Percutaneous Approach (ICD-10-PCS; principal; 2019-08-20)
DX: A41.9 Sepsis, unspecified organism (principal); K57.20 Diverticulitis of large intestine with perforation and abscess without bleeding; E87.6 Hypokalemia; K58.9 Irritable bowel syndrome, unspecified; G47.00 Insomnia, unspecified; M79.7 Fibromyalgia; F41.9 Anxiety disorder, unspecified; I25.10 Atherosclerotic heart disease of native coronary artery without angina pectoris; K44.9 Diaphragmatic hernia without obstruction or gangrene; Z98.51 Tubal ligation status; Z90.89 Acquired absence of other organs; Z88.5 Allergy status to narcotic agent; Z79.899 Other long term (current) drug therapy; Z98.49 Cataract extraction status, unspecified eye; Z82.49 Family history of ischemic heart disease and other diseases of the circulatory system; Z82.3 Family history of stroke; Z81.8 Family history of other mental and behavioral disorders
CPT/HCPCS: 10022; 36415; 36569; 71045; 71250; 74176; 74177; 77012; 80053; 81001; 82040; 82962; 83690; 83735; 84100; 84478; 84484; 85025; 85610; 85730; 86850; 86900; 86901; 87040; 93005; 96365; 96366; 96367; 96375; 97163; C1729; C9113; G0378; J0696; J2250; J2405; J3480; J3490

== ENCOUNTER → 2019-09-13 | Outpatient (CLI) | payer MEDICARE, OTHER ==
[~2019-09-13] MED LIST changes: -CARI350T22 PO; +MELO1TAB56 PO; -OXAP-61 PO; +SIMV-8 PO
== END | disposition home or self-care (01) ==
LOC: LAB 12:47
PROVIDERS: ATTEND Internal Medicine
DX: E78.5 Hyperlipidemia, unspecified (principal); R73.9 Hyperglycemia, unspecified
CPT/HCPCS: 36415; 83036

== ENCOUNTER → 2019-10-09 | Outpatient (CLI) | payer MEDICARE, OTHER ==
[2019-10-09 13:28] LABS: Cholesterol 137 mg/dL (< 200); HDL Cholesterol 56 mg/dL (40-59); LDL Cholesterol 64 mg/dL (< 100); Triglycerides 114 mg/dL (< 150)
== END | disposition home or self-care (01) ==
LOC: LAB 11:43
PROVIDERS: ATTEND Internal Medicine
DX: K57.92 Diverticulitis of intestine, part unspecified, without perforation or abscess without bleeding (principal); R73.9 Hyperglycemia, unspecified; E72.50 Disorder of glycine metabolism, unspecified; E78.5 Hyperlipidemia, unspecified; Z79.899 Other long term (current) drug therapy
CPT/HCPCS: 36415; 80061; 82306; 84443

== ENCOUNTER → 2019-12-14 | Outpatient (CLI) | payer MEDICARE, OTHER | END | disposition home or self-care (01) | LOC: LAB 11:29 | PROVIDERS: ATTEND Internal Medicine | DX: E03.9 Hypothyroidism, unspecified (principal) | CPT/HCPCS: 36415; 84439; 84443; 84480 ==

== ENCOUNTER → 2020-01-08 | Outpatient (CLI) | payer MEDICARE, OTHER ==
[2020-01-08 12:08] LABS: Basophils # (auto) 0.1 10 ^3/uL (0-0.2); Basophils % (auto) 0.8 % (0.0-2.0); Eosinophils # (auto) 0.1 10 ^3/uL (0-0.8); Eosinophils % (auto) 1.6 % (0.0-7.0); Hematocrit 36.6 % (36.0-46.0); Lymphocytes % (auto) 26.6 % (10.0-50.0); Mean Corpuscular Hemoglobin 29.5 pg (28.0-32.0); Mean Corpuscular Hgb Conc. 32.9 g/dL (32.0-36.0); Mean Corpuscular Volume 89.9 fL (80.0-100.0); Monocytes # (auto) 0.6 10 ^3/uL (0-1.3); Monocytes % (auto) 7.4 % (0.0-12.0); Neutrophils # (auto) 4.9 10 ^3/uL (1.6-8.6); Neutrophils % (auto) 63.6 % (37.0-80.0); Nucleated Red Blood Cells % 0.1 %; Platelet Count (auto) 327 10^3/uL (140-450); Red Blood Cells 4.07 10^6/uL (4.0-5.20); Red Cell Distribution Width 16.4 % (11.8-14.3); White Blood Cell 7.7 10^3/uL (4.4-10.8)
[2020-01-08 12:49] LABS: BUN/Creatinine Ratio 19.1; Calcium 9.7 mg/dL (8.5-10.1); Potassium 3.7 mmol/L (3.5-5.1)
== END | disposition home or self-care (01) ==
LOC: LAB 11:45
PROVIDERS: ATTEND Internal Medicine
DX: R94.6 Abnormal results of thyroid function studies (principal)
CPT/HCPCS: 36415; 80048; 84443; 85025

== ENCOUNTER → 2020-01-15 | Outpatient (CLI) | payer MEDICARE, OTHER | END | disposition home or self-care (01) | LOC: LAB 15:18 | PROVIDERS: ATTEND Internal Medicine Gastroenterology | DX: R10.32 Left lower quadrant pain (principal) | CPT/HCPCS: 36415; 82565; 84520 ==

== ENCOUNTER → 2020-02-26 | Outpatient (CLI) | payer MEDICARE, OTHER ==
[2020-02-26 09:46] LABS: Basophils # (auto) 0.1 10 ^3/uL (0-0.2); Basophils % (auto) 0.8 % (0.0-2.0); Eosinophils # (auto) 0.1 10 ^3/uL (0-0.8); Eosinophils % (auto) 1.8 % (0.0-7.0); Hematocrit 35.1 % (36.0-46.0); Hemoglobin 11.3 g/dL (12.2-16.2); Lymphocytes % (auto) 27.7 % (10.0-50.0); Mean Corpuscular Volume 90.6 fL (80.0-100.0); Monocytes # (auto) 0.6 10 ^3/uL (0-1.3); Monocytes % (auto) 8.2 % (0.0-12.0); Neutrophils # (auto) 4.5 10 ^3/uL (1.6-8.6); Neutrophils % (auto) 61.5 % (37.0-80.0); Platelet Count (auto) 349 10^3/uL (140-450); Red Blood Cells 3.88 10^6/uL (4.0-5.20); Red Cell Distribution Width 15.7 % (11.8-14.3); White Blood Cell 7.4 10^3/uL (4.4-10.8)
[2020-02-26 09:51] LABS: Urine Bacteria NONE SEEN /hpf (None Seen); Urine Blood Negative /uL (Negative); Urine Mucus FEW (None Seen); Urine Specific Gravity 1.007 (1.001-1.035); Urine WBC 1 /hpf (0 - 5)
[2020-02-26 10:07] LABS: BUN/Creatinine Ratio 16.7; Calcium 9.4 mg/dL (8.5-10.1); Potassium 3.6 mmol/L (3.5-5.1)
== END | disposition home or self-care (01) ==
LOC: LAB 09:24
PROVIDERS: ATTEND Internal Medicine Gastroenterology
DX: K57.32 Diverticulitis of large intestine without perforation or abscess without bleeding (principal); Z79.899 Other long term (current) drug therapy
CPT/HCPCS: 36415; 80048; 81001; 85025; 87086

== ENCOUNTER → 2020-03-18 | Outpatient (CLI) | payer MEDICARE, OTHER | END | disposition home or self-care (01) | LOC: LAB 11:22 | PROVIDERS: ATTEND Internal Medicine | DX: Z12.11 Encounter for screening for malignant neoplasm of colon (principal) | CPT/HCPCS: 82270 ==

== ENCOUNTER → 2020-04-14 | Outpatient (CLI) | payer MEDICARE, BC ==
[~2020-04-14] VITALS: Ht 161.3 cm; Wt 71.2 kg
[~2020-04-14] MED LIST changes: +ADENOSINE 60 MG in GIVE UN-DILUTED 0 ML IV ONE; +ADENOSINE 90 MG/30 ML INJ IV ONE; +CYCL5TAB PO; +LEVO25TA6 PO; +LORA0.5T20 PO; +NEFA150T PO; +PANT40TA2 PO; -[UNRECOGNIZED DRUG - CODE] PO
== END | disposition home or self-care (01) ==
LOC: Rad HDHVI 08:08
PROVIDERS: ATTEND Internal Medicine Cardiovascular Disease
DX: Z01.810 Encounter for preprocedural cardiovascular examination (principal); E78.00 Pure hypercholesterolemia, unspecified; Z82.49 Family history of ischemic heart disease and other diseases of the circulatory system
CPT/HCPCS: 78452; 93005; 96374; 96375; A9500; J0153

== ENCOUNTER 2020-05-20 06:18 | Inpatient (IN) | payer MEDICARE, BC ==
[2020-05-15 12:12] LABS: Basophils # (auto) 0.1 10 ^3/uL (0-0.2); Basophils % (auto) 1.3 % (0.0-2.0); Eosinophils # (auto) 0.1 10 ^3/uL (0-0.8); Hematocrit 35.6 % (36.0-46.0); Hemoglobin 12.2 g/dL (12.2-16.2); Lymphocytes # (auto) 2.2 10 ^3/uL (0.4-5.4); Lymphocytes % (auto) 31.3 % (10.0-50.0); Mean Corpuscular Hemoglobin 31.3 pg (28.0-32.0); Mean Corpuscular Hgb Conc. 34.4 g/dL (32.0-36.0); Mean Corpuscular Volume 91.1 fL (80.0-100.0); Monocytes # (auto) 0.7 10 ^3/uL (0-1.3); Monocytes % (auto) 9.8 % (0.0-12.0); Neutrophils % (auto) 56.6 % (37.0-80.0); Platelet Count (auto) 330 10^3/uL (140-450); Red Blood Cells 3.91 10^6/uL (4.0-5.20); Red Cell Distribution Width 14.9 % (11.8-14.3)
[2020-05-15 12:25] LABS: INR 1.01 (0.9-1.15)
[2020-05-15 12:30] LABS: Urine Bacteria NONE SEEN /hpf (None Seen); Urine Blood TRACE /uL (Negative); Urine Specific Gravity 1.013 (1.001-1.035); Urine WBC 2 /hpf (0 - 5)
[2020-05-15 12:35] LABS: Albumin 3.8 g/dL (3.4-5.0); Calcium 9.8 mg/dL (8.5-10.1); Potassium 3.6 mmol/L (3.5-5.1)
[2020-05-15 12:38] LABS: BUN/Creatinine Ratio 20.6; Bilirubin, Total 0.3 mg/dL (0.2-1.0); Total Protein 7.9 g/dL (6.4-8.2)
[~2020-05-20] VITALS: Ht 160 cm; Wt 74.5 kg
[~2020-05-20 06:18] MED LIST changes: -ADENOSINE 60 MG in GIVE UN-DILUTED 0 ML IV ONE; -ADENOSINE 90 MG/30 ML INJ IV ONE
[2020-05-20] MEDS ORDERED: ceFAZolin 1GM/50ML 50 ML IV ONE (06:34)
[2020-05-20] MEDS ORDERED: LIDOCAINE 1% HCL (LOCAL ANESTH.) INJ 20ML MDV ONE (07:06)
[2020-05-20] MEDS ORDERED: ROCURONIUM 10MG/ML 10ML VIAL IV ONE (07:07)
[2020-05-20] MEDS ORDERED: SUCCINYLCHOLINE CHLORIDE 20 MG/ML 10ML VIAL IV ONE (07:07)
[2020-05-20] MEDS ORDERED: fentaNYL CITRATE 100 MCG/2 ML VL ONE (07:08)
[2020-05-20] MEDS ORDERED: NEOSTIGMINE 1 MG/ML INJ (10mg/10ML VIAL) ONE (07:09)
[2020-05-20] MEDS ORDERED: GLYCOPYRROLATE 0.2 MG/ML 1ML VIAL ONE (07:09)
[2020-05-20] MEDS ORDERED: ONDANSETRON HCL 4 MG/2 ML VIAL ONE (07:09)
[2020-05-20] MEDS ORDERED: SODIUM CHLORIDE LOCK 10 ML ONE (07:09)
[2020-05-20] MEDS ORDERED: DexAMETHasone SOD PHOS 10MG/1ML VIAL INJ ONE (07:09)
[2020-05-20] MEDS ORDERED: fentaNYL CITRATE 5 ML ONE (07:09)
[2020-05-20] MEDS ORDERED: MIDAZOLAM HCL 1MG/1ML-2 ML VIAL ONE (07:09)
[2020-05-20] MEDS ORDERED: fentaNYL CITRATE 100 MCG/2 ML VL IV ONE (10:00)
[2020-05-20] MEDS ORDERED: ACETAMINOPHEN IV 100 ML IV ONE (10:01)
[2020-05-20] MEDS ORDERED: MEPERIDINE HCL (50 MG/ML) 1 ML VIAL ONE (10:10)
[2020-05-20] MEDS ORDERED: ACETAMINOPHEN IV 1000 MG/100ML (10MG/ML) IV ONE (10:15)
[2020-05-20] MEDS ORDERED: fentaNYL CITRATE 100 MCG/2 ML VL IV PRN (10:15)
[2020-05-20] MEDS ORDERED: MEPERIDINE HCL (50 MG/ML) 1 ML VIAL IM ONE (10:15)
[2020-05-20] MEDS ORDERED: ONDANSETRON HCL 4 MG/2 ML VIAL IV PRN (10:15)
[2020-05-20] MEDS: D5W/SOD CHL 0.45%/KCL 20MEQ 1,000 ML IV SCH ×2 (12:43→18:23)
[2020-05-20] MEDS: PANTOPRAZOLE 40 MG/10 ML VIAL INJ IV SCH (12:43)
[2020-05-20] MEDS: metroNIDAZOLE 500MG/100ML 100 ML IV SCH ×2 (14:21→21:33)
[2020-05-20] MEDS: ceFAZolin 1GM/50ML 50 ML IV SCH ×2 (14:21→21:33)
[2020-05-20] MEDS: HYDROmorphone HCL 2 MG/ML VL IV PRN ×2 (15:09→21:34)
[2020-05-20 22:06] VITALS: BP 112/65
[2020-05-20 22:11] VITALS: BP 112/65
[2020-05-21] MEDS: D5W/SOD CHL 0.45%/KCL 20MEQ 1,000 ML IV SCH ×3 (02:45→21:24)
[2020-05-21] MEDS: HYDROmorphone HCL 2 MG/ML VL IV PRN ×3 (02:45→17:28)
[2020-05-21 05:26] VITALS: BP 120/74
[2020-05-21 05:52] LABS: Basophils # (auto) 0 10 ^3/uL (0-0.2); Basophils % (auto) 0.2 % (0.0-2.0); Eosinophils # (auto) 0 10 ^3/uL (0-0.8); Hematocrit 31.6 % (36.0-46.0); Hemoglobin 10.7 g/dL (12.2-16.2); Lymphocytes # (auto) 1.1 10 ^3/uL (0.4-5.4); Lymphocytes % (auto) 7.6 % (10.0-50.0); Mean Corpuscular Hemoglobin 31.3 pg (28.0-32.0); Mean Corpuscular Hgb Conc. 33.9 g/dL (32.0-36.0); Mean Corpuscular Volume 92.2 fL (80.0-100.0); Monocytes # (auto) 0.8 10 ^3/uL (0-1.3); Monocytes % (auto) 5.9 % (0.0-12.0); Neutrophils # (auto) 12.1 10 ^3/uL (1.6-8.6); Neutrophils % (auto) 86.3 % (37.0-80.0); Platelet Count (auto) 292 10^3/uL (140-450); Red Blood Cells 3.42 10^6/uL (4.0-5.20); Red Cell Distribution Width 14.7 % (11.8-14.3); White Blood Cell 14.1 10^3/uL (4.4-10.8)
[2020-05-21] MEDS: metroNIDAZOLE 500MG/100ML 100 ML IV SCH ×3 (06:00→21:24)
[2020-05-21] MEDS: ceFAZolin 1GM/50ML 50 ML IV SCH ×3 (06:00→21:24)
[2020-05-21 06:11] LABS: Albumin 3.1 g/dL (3.4-5.0); Calcium 7.4 mg/dL (8.5-10.1); Potassium 3.7 mmol/L (3.5-5.1)
[2020-05-21 06:16] LABS: BUN/Creatinine Ratio 13.4; Bilirubin, Total 0.3 mg/dL (0.2-1.0); Total Protein 6.4 g/dL (6.4-8.2)
[2020-05-21 09:00] VITALS: BP 116/65
[2020-05-21] MEDS: PANTOPRAZOLE 40 MG/10 ML VIAL INJ IV SCH (10:01)
[2020-05-21] MEDS: ONDANSETRON HCL 4 MG/2 ML VIAL IV PRN ×2 (10:25→17:28)
[2020-05-21 13:00] VITALS: BP 127/60
[2020-05-21 16:49] VITALS: BP 131/58
[2020-05-21 22:00] VITALS: BP 117/62
[2020-05-22 05:00] VITALS: BP 132/70
[2020-05-22] MEDS: D5W/SOD CHL 0.45%/KCL 20MEQ 1,000 ML IV SCH ×3 (05:21→20:10)
[2020-05-22] MEDS: ceFAZolin 1GM/50ML 50 ML IV SCH ×3 (05:21→20:20)
[2020-05-22] MEDS: metroNIDAZOLE 500MG/100ML 100 ML IV SCH ×3 (05:22→20:23)
[2020-05-22] MEDS: HYDROmorphone HCL 2 MG/ML VL IV PRN ×2 (05:45→20:25)
[2020-05-22] MEDS: ONDANSETRON HCL 4 MG/2 ML VIAL IV PRN ×2 (05:46→20:25)
[2020-05-22 06:17] LABS: Basophils # (auto) 0 10 ^3/uL (0-0.2); Basophils % (auto) 0.2 % (0.0-2.0); Eosinophils # (auto) 0 10 ^3/uL (0-0.8); Eosinophils % (auto) 0.1 % (0.0-7.0); Hematocrit 30.2 % (36.0-46.0); Hemoglobin 10.3 g/dL (12.2-16.2); Lymphocytes # (auto) 1.6 10 ^3/uL (0.4-5.4); Lymphocytes % (auto) 10.1 % (10.0-50.0); Mean Corpuscular Hemoglobin 30.9 pg (28.0-32.0); Mean Corpuscular Hgb Conc. 34.1 g/dL (32.0-36.0); Mean Corpuscular Volume 90.7 fL (80.0-100.0); Monocytes # (auto) 1.1 10 ^3/uL (0-1.3); Monocytes % (auto) 7.3 % (0.0-12.0); Neutrophils # (auto) 12.8 10 ^3/uL (1.6-8.6); Neutrophils % (auto) 82.3 % (37.0-80.0); Platelet Count (auto) 324 10^3/uL (140-450); Red Blood Cells 3.33 10^6/uL (4.0-5.20); Red Cell Distribution Width 14.6 % (11.8-14.3); White Blood Cell 15.5 10^3/uL (4.4-10.8)
[2020-05-22 06:29] LABS: Potassium 3.1 mmol/L (3.5-5.1)
[2020-05-22 06:33] LABS: BUN/Creatinine Ratio 10.2
[2020-05-22 09:05] VITALS: BP 132/61
[2020-05-22] MEDS: PANTOPRAZOLE 40 MG/10 ML VIAL INJ IV SCH (10:13)
[2020-05-22] MEDS ORDERED: POTASSIUM CHLORIDE 40 MEQ, LIDOCAINE 1% (LOCAL ANESTH.) 4 ML in SODIUM CHL 0.9% 250 ML IV ONE (11:45)
[2020-05-22 13:00] VITALS: BP 137/66
[2020-05-22 16:45] VITALS: BP 141/72
[2020-05-22 22:00] VITALS: BP 137/73
[2020-05-23 05:00] VITALS: BP 134/73
[2020-05-23] MEDS: metroNIDAZOLE 500MG/100ML 100 ML IV SCH ×3 (06:02→22:41)
[2020-05-23] MEDS: ceFAZolin 1GM/50ML 50 ML IV SCH ×3 (06:02→22:41)
[2020-05-23] MEDS: D5W/SOD CHL 0.45%/KCL 20MEQ 1,000 ML IV SCH ×2 (06:03→18:20)
[2020-05-23 07:26] LABS: Basophils # (auto) 0.1 10 ^3/uL (0-0.2); Basophils % (auto) 0.6 % (0.0-2.0); Eosinophils # (auto) 0.1 10 ^3/uL (0-0.8); Eosinophils % (auto) 0.9 % (0.0-7.0); Hematocrit 30.5 % (36.0-46.0); Hemoglobin 10.5 g/dL (12.2-16.2); Lymphocytes # (auto) 1.7 10 ^3/uL (0.4-5.4); Lymphocytes % (auto) 13.1 % (10.0-50.0); Mean Corpuscular Hemoglobin 31.6 pg (28.0-32.0); Mean Corpuscular Hgb Conc. 34.4 g/dL (32.0-36.0); Mean Corpuscular Volume 91.6 fL (80.0-100.0); Monocytes # (auto) 1.1 10 ^3/uL (0-1.3); Monocytes % (auto) 8.6 % (0.0-12.0); Neutrophils # (auto) 9.7 10 ^3/uL (1.6-8.6); Neutrophils % (auto) 76.8 % (37.0-80.0); Platelet Count (auto) 316 10^3/uL (140-450); Red Blood Cells 3.33 10^6/uL (4.0-5.20); Red Cell Distribution Width 14.9 % (11.8-14.3); White Blood Cell 12.6 10^3/uL (4.4-10.8)
[2020-05-23 07:50] LABS: Potassium 3.3 mmol/L (3.5-5.1)
[2020-05-23 07:58] LABS: BUN/Creatinine Ratio 5.6; Calcium 8.3 mg/dL (8.5-10.1)
[2020-05-23 09:00] VITALS: BP 133/70
[2020-05-23] MEDS: SORE THROAT SPRAY 6OZ BOTTLE MT PRN ×2 (09:06→13:50)
[2020-05-23] MEDS: PANTOPRAZOLE 40 MG/10 ML VIAL INJ IV SCH (09:06)
[2020-05-23 13:00] VITALS: BP 139/79
[2020-05-23] MEDS: ONDANSETRON HCL 4 MG/2 ML VIAL IV PRN (14:40)
[2020-05-23] MEDS: HYDROmorphone HCL 2 MG/ML VL IV PRN (14:40)
[2020-05-23 17:00] VITALS: BP 130/73
[2020-05-23 22:00] VITALS: BP 134/77
[2020-05-24] MEDS: LORazepam 2MG/ML-1ML VIAL IV PRN (00:36)
[2020-05-24 05:00] VITALS: BP 134/69
[2020-05-24] MEDS: D5W/SOD CHL 0.45%/KCL 20MEQ 1,000 ML IV SCH ×3 (06:19→23:40)
[2020-05-24] MEDS: ceFAZolin 1GM/50ML 50 ML IV SCH ×3 (06:19→23:40)
[2020-05-24] MEDS: metroNIDAZOLE 500MG/100ML 100 ML IV SCH ×3 (06:20→22:28)
[2020-05-24 09:00] VITALS: BP_SYST 104; BP_SYST 129; BP_DIAS 67; BP_DIAS 72
[2020-05-24] MEDS: PANTOPRAZOLE 40 MG/10 ML VIAL INJ IV SCH (10:49)
[2020-05-24 13:00] VITALS: BP 132/80
[2020-05-24] MEDS: ACETAMINOPHEN 325 MG TAB PO PRN (15:30)
[2020-05-24 16:44] VITALS: BP 122/71
[2020-05-24 22:00] VITALS: BP 133/85
[2020-05-25] MEDS: ACETAMINOPHEN 325 MG TAB PO PRN (04:47)
[2020-05-25 05:00] VITALS: BP 135/78
[2020-05-25] MEDS: ceFAZolin 1GM/50ML 50 ML IV SCH ×3 (05:36→23:34)
[2020-05-25] MEDS: metroNIDAZOLE 500MG/100ML 100 ML IV SCH ×3 (06:36→22:34)
[2020-05-25] MEDS: D5W/SOD CHL 0.45%/KCL 20MEQ 1,000 ML IV SCH ×2 (08:50→16:17)
[2020-05-25 09:02] VITALS: BP 124/71
[2020-05-25] MEDS: PANTOPRAZOLE 40 MG/10 ML VIAL INJ IV SCH (11:11)
[2020-05-25 12:41] VITALS: BP 127/77
[2020-05-25] MEDS ORDERED: LEVOTHYROXINE SODIUM 25 MCG TAB PO ONE (13:00)
[2020-05-25 17:14] VITALS: BP 131/72
[2020-05-25 21:00] VITALS: BP 132/60
[2020-05-25] MEDS: LORazepam 2MG/ML-1ML VIAL IV PRN (22:35)
[2020-05-26] MEDS: D5W/SOD CHL 0.45%/KCL 20MEQ 1,000 ML IV SCH ×2 (00:55→19:02)
[2020-05-26 05:00] VITALS: BP 119/65
[2020-05-26] MEDS: LEVOTHYROXINE SODIUM 25 MCG TAB PO SCH (06:01)
[2020-05-26 06:15] LABS: Basophils # (auto) 0.1 10 ^3/uL (0-0.2); Basophils % (auto) 0.8 % (0.0-2.0); Eosinophils # (auto) 0.4 10 ^3/uL (0-0.8); Eosinophils % (auto) 4.1 % (0.0-7.0); Hematocrit 31.1 % (36.0-46.0); Hemoglobin 10.9 g/dL (12.2-16.2); Lymphocytes # (auto) 2.2 10 ^3/uL (0.4-5.4); Lymphocytes % (auto) 25.2 % (10.0-50.0); Mean Corpuscular Hemoglobin 31.5 pg (28.0-32.0); Mean Corpuscular Volume 89.9 fL (80.0-100.0); Monocytes # (auto) 0.9 10 ^3/uL (0-1.3); Monocytes % (auto) 10.7 % (0.0-12.0); Neutrophils # (auto) 5.2 10 ^3/uL (1.6-8.6); Neutrophils % (auto) 59.2 % (37.0-80.0); Nucleated Red Blood Cells % 0.1 %; Platelet Count (auto) 432 10^3/uL (140-450); Red Blood Cells 3.46 10^6/uL (4.0-5.20); Red Cell Distribution Width 14.6 % (11.8-14.3); White Blood Cell 8.8 10^3/uL (4.4-10.8)
[2020-05-26 06:26] LABS: BUN/Creatinine Ratio 19.4; Calcium 7.7 mg/dL (8.5-10.1)
[2020-05-26] MEDS: metroNIDAZOLE 500MG/100ML 100 ML IV SCH (06:26)
[2020-05-26] MEDS: ceFAZolin 1GM/50ML 50 ML IV SCH (07:19)
[2020-05-26 09:07] VITALS: BP 131/73
[2020-05-26] MEDS: PANTOPRAZOLE 40 MG/10 ML VIAL INJ IV SCH (10:11)
[2020-05-26] MEDS ORDERED: POTASSIUM CHL 20 Meq TABLET PO ONE (12:00)
[2020-05-26] MEDS: CEPHALEXIN 250 MG CAP PO SCH ×2 (12:48→21:20)
[2020-05-26 13:00] VITALS: BP 132/66
[2020-05-26] MEDS: LORazepam 2MG/ML-1ML VIAL IV PRN (21:20)
[2020-05-26 22:47] VITALS: BP 108/72
[2020-05-27 05:00] VITALS: BP 146/74
[2020-05-27] MEDS: D5W/SOD CHL 0.45%/KCL 20MEQ 1,000 ML IV SCH (05:09)
[2020-05-27] MEDS: CEPHALEXIN 250 MG CAP PO SCH ×2 (06:06→14:41)
[2020-05-27] MEDS: LEVOTHYROXINE SODIUM 25 MCG TAB PO SCH (06:07)
[2020-05-27 07:19] LABS: Anion Gap 6 (5-15); BUN/Creatinine Ratio 13.6; Blood Urea Nitrogen 6 mg/dL (7-18); Calcium 8.1 mg/dL (8.5-10.1); Carbon Dioxide 23 mmol/L (21-32); Chloride 112 mmol/L (98-107); GFR African American 181 mL/min; GFR Non-African American 150 mL/min; Glucose 107 mg/dL (74-106); Potassium 3.4 mmol/L (3.5-5.1); Sodium 141 mmol/L (136-145)
[2020-05-27 08:30] VITALS: BP 120/55
[2020-05-27] MEDS ORDERED: FAMOTIDINE 20 MG TAB PO SCH (10:00)
[2020-05-27] MEDS ORDERED: POTASSIUM CHL 20 Meq TABLET PO ONE (11:30)
[2020-05-27 12:49] VITALS: BP 126/79
== END 2020-05-27 16:38 | disposition home health service (06) | DRG 331 ==
LOC: SUR 06:18 → OVERFLOW 06:19 → WEST WING 11:28
PROVIDERS: ADMIT Surgery; ATTEND Internal Medicine
PROC: 0D1M0ZP Bypass Descending Colon to Rectum, Open Approach (ICD-10-PCS; 2020-05-20)
PROC: 0DTG0ZZ Resection of Left Large Intestine, Open Approach (ICD-10-PCS; principal; 2020-05-20 07:20)
DX: K57.20 Diverticulitis of large intestine with perforation and abscess without bleeding (principal); M79.7 Fibromyalgia; F41.9 Anxiety disorder, unspecified; E03.9 Hypothyroidism, unspecified; E87.6 Hypokalemia; Z88.6 Allergy status to analgesic agent; Z91.012 Allergy to eggs; Z91.011 Allergy to milk products; Z20.822 Contact with and (suspected) exposure to COVID-19
CPT/HCPCS: 36415; 70450; 71045; 80048; 80053; 81001; 84443; 85025; 85610; 85730; 86850; 86900; 86901; 97110; 97116; 97530; C9113; G0378; J0131; J0330; J0690; J1100; J2001; J2250; J2405; J3490

== ENCOUNTER → 2020-06-15 | Outpatient (CLI) | payer MEDICARE, BC ==
[2020-06-15 15:07] LABS: Basophils # (auto) 0.1 10 ^3/uL (0-0.2); Basophils % (auto) 1.1 % (0.0-2.0); Eosinophils # (auto) 0.1 10 ^3/uL (0-0.8); Eosinophils % (auto) 1.3 % (0.0-7.0); Hematocrit 32.5 % (36.0-46.0); Lymphocytes # (auto) 2.6 10 ^3/uL (0.4-5.4); Lymphocytes % (auto) 33.9 % (10.0-50.0); Mean Corpuscular Hemoglobin 31.2 pg (28.0-32.0); Mean Corpuscular Hgb Conc. 33.8 g/dL (32.0-36.0); Mean Corpuscular Volume 92.3 fL (80.0-100.0); Monocytes # (auto) 0.7 10 ^3/uL (0-1.3); Monocytes % (auto) 9.6 % (0.0-12.0); Neutrophils # (auto) 4.1 10 ^3/uL (1.6-8.6); Neutrophils % (auto) 54.1 % (37.0-80.0); Platelet Count (auto) 327 10^3/uL (140-450); Red Blood Cells 3.52 10^6/uL (4.0-5.20); Red Cell Distribution Width 14.9 % (11.8-14.3); White Blood Cell 7.6 10^3/uL (4.4-10.8)
[2020-06-15 16:17] LABS: Albumin 3.7 g/dL (3.4-5.0); BUN/Creatinine Ratio 14.8; Calcium 8.9 mg/dL (8.5-10.1); Potassium 3.9 mmol/L (3.5-5.1)
[2020-06-15 16:23] LABS: Bilirubin, Total 0.2 mg/dL (0.2-1.0); Total Protein 7.2 g/dL (6.4-8.2)
== END | disposition home or self-care (01) ==
LOC: LAB 14:54
PROVIDERS: ATTEND Internal Medicine
DX: M79.7 Fibromyalgia (principal); K57.90 Diverticulosis of intestine, part unspecified, without perforation or abscess without bleeding; E78.5 Hyperlipidemia, unspecified
CPT/HCPCS: 36415; 80053; 85025

== ENCOUNTER → 2020-08-10 | Outpatient (CLI) | payer MEDICARE, BC | END | disposition home or self-care (01) | LOC: LAB 11:18 | PROVIDERS: ATTEND Internal Medicine | DX: E03.9 Hypothyroidism, unspecified (principal) | CPT/HCPCS: 36415; 84443 ==

== ENCOUNTER → 2021-05-25 | Outpatient (CLI) | payer MEDICARE, BC ==
[~2021-05-25] MED LIST changes: +CYCL-837 PO; -CYCL5TAB PO
[2021-05-25 10:00] LABS: Urine Bacteria NONE SEEN /hpf (None Seen); Urine Blood TRACE /uL (Negative); Urine Mucus FEW (None Seen); Urine Specific Gravity 1.009 (1.001-1.035); Urine WBC 4 /hpf (0 - 5)
[2021-05-25 10:01] LABS: Basophils # (auto) 0.1 10 ^3/uL (0-0.2); Basophils % (auto) 0.8 % (0.0-2.0); Eosinophils # (auto) 0.1 10 ^3/uL (0-0.8); Eosinophils % (auto) 1.7 % (0.0-7.0); Hematocrit 36.4 % (36.0-46.0); Hemoglobin 12.4 g/dL (12.2-16.2); Lymphocytes % (auto) 32.3 % (10.0-50.0); Mean Corpuscular Hemoglobin 30.3 pg (28.0-32.0); Mean Corpuscular Volume 89.3 fL (80.0-100.0); Monocytes # (auto) 0.5 10 ^3/uL (0-1.3); Monocytes % (auto) 7.8 % (0.0-12.0); Neutrophils # (auto) 3.6 10 ^3/uL (1.6-8.6); Neutrophils % (auto) 57.4 % (37.0-80.0); Red Blood Cells 4.07 10^6/uL (4.0-5.20); Red Cell Distribution Width 14.6 % (11.8-14.3); White Blood Cell 6.3 10^3/uL (4.4-10.8)
[2021-05-25 10:26] LABS: Potassium 3.9 mmol/L (3.5-5.1)
[2021-05-25 10:40] LABS: Albumin 3.7 g/dL (3.4-5.0); Bilirubin, Total 0.7 mg/dL (0.2-1.0); Calcium 9.1 mg/dL (8.5-10.1); Total Protein 7.3 g/dL (6.4-8.2)
== END | disposition home or self-care (01) ==
LOC: LAB 09:21
PROVIDERS: ATTEND Internal Medicine
DX: Z12.11 Encounter for screening for malignant neoplasm of colon (principal); E03.9 Hypothyroidism, unspecified
CPT/HCPCS: 36415; 80053; 81001; 84443; 85025; 85652; 86431

== ENCOUNTER → 2021-05-28 | Outpatient (CLI) | payer MEDICARE, BC ==
[~2021-05-28] MED LIST changes: +IOHEXOL 350 MG/ML 100ML IJ ONE
[2021-05-28 09:11] VITALS: BP 121/56
[2021-05-28 09:52] VITALS: BP 121/51
== END | disposition home or self-care (01) ==
LOC: Rad HDHVI 09:03
PROVIDERS: ATTEND Internal Medicine Cardiovascular Disease
DX: R91.8 Other nonspecific abnormal finding of lung field (principal); J44.9 Chronic obstructive pulmonary disease, unspecified; E55.9 Vitamin D deficiency, unspecified; M47.814 Spondylosis without myelopathy or radiculopathy, thoracic region
CPT/HCPCS: 71275; 82306; G0463; Q9967

== ENCOUNTER → 2021-06-17 | Outpatient (CLI) | payer MEDICARE, BC ==
[~2021-06-17] MED LIST changes: -IOHEXOL 350 MG/ML 100ML IJ ONE
== END | disposition home or self-care (01) ==
LOC: XY 09:06
PROVIDERS: ATTEND Internal Medicine
DX: R42 Dizziness and giddiness (principal)
CPT/HCPCS: 93886

== ENCOUNTER 2021-07-07 12:25 | Day surgery (SDC) | payer MEDICARE, BC ==
[2021-07-05 10:44] LABS: Basophils # (auto) 0.1 10 ^3/uL (0-0.2); Eosinophils # (auto) 0.1 10 ^3/uL (0-0.8); Hematocrit 36.3 % (36.0-46.0); Hemoglobin 12.2 g/dL (12.2-16.2); Lymphocytes # (auto) 2.4 10 ^3/uL (0.4-5.4); Lymphocytes % (auto) 34.3 % (10.0-50.0); Mean Corpuscular Hemoglobin 29.9 pg (28.0-32.0); Mean Corpuscular Hgb Conc. 33.5 g/dL (32.0-36.0); Mean Corpuscular Volume 89.1 fL (80.0-100.0); Monocytes # (auto) 0.7 10 ^3/uL (0-1.3); Monocytes % (auto) 9.3 % (0.0-12.0); Neutrophils # (auto) 3.9 10 ^3/uL (1.6-8.6); Neutrophils % (auto) 54.4 % (37.0-80.0); Nucleated Red Blood Cells % 0.1 %; Red Blood Cells 4.08 10^6/uL (4.0-5.20); Red Cell Distribution Width 15.3 % (11.8-14.3); White Blood Cell 7.1 10^3/uL (4.4-10.8)
[2021-07-05 11:21] LABS: INR 1.02 (0.9-1.15)
[2021-07-05 11:29] LABS: Albumin 3.8 g/dL (3.4-5.0); Calcium 9.8 mg/dL (8.5-10.1); Potassium 3.6 mmol/L (3.5-5.1)
[2021-07-05 11:32] LABS: BUN/Creatinine Ratio 19.7; Bilirubin, Total 0.2 mg/dL (0.2-1.0); Total Protein 7.3 g/dL (6.4-8.2)
[2021-07-05 15:50] LABS: Partial Thromboplastin Time 29.7 sec (23.6-33.0)
[~2021-07-07] VITALS: Ht 160 cm; Wt 73.5 kg
[~2021-07-07 12:25] MED LIST changes: +CHOL4POW PO; -CYCL-837 PO; -MELO1TAB56 PO; -NEFA150T PO; +OMEP20TA PO; +OXYB5TAB61 PO; -PANT40TA2 PO
[2021-07-07] MEDS ORDERED: LIDOCAINE VISCOUS 2% 15ML UD ONE (12:41)
[2021-07-07] MEDS: MIDAZOLAM HCL 5 MG/ML-1ML VIAL ONE ×2 (13:41→13:44)
[2021-07-07] MEDS: fentaNYL CITRATE 100 MCG/2 ML VL ONE ×2 (13:41→13:44)
[2021-07-07] MEDS: diphenhdrAMINE HCL 50 MG/1 ML VL ONE ×2 (13:41→13:44)
[2021-07-07 14:15] VITALS: BP 131/61
== END 2021-07-07 15:00 | disposition home or self-care (01) ==
LOC: GI 12:25
PROVIDERS: ATTEND Internal Medicine Gastroenterology
DX: R13.10 Dysphagia, unspecified (principal); K21.00 Gastro-esophageal reflux disease with esophagitis, without bleeding; K44.9 Diaphragmatic hernia without obstruction or gangrene; K22.10 Ulcer of esophagus without bleeding; K29.50 Unspecified chronic gastritis without bleeding; K31.89 Other diseases of stomach and duodenum; E03.9 Hypothyroidism, unspecified; M19.90 Unspecified osteoarthritis, unspecified site; F32.9 Major depressive disorder, single episode, unspecified; F41.9 Anxiety disorder, unspecified; Z98.41 Cataract extraction status, right eye; Z98.42 Cataract extraction status, left eye; Z88.5 Allergy status to narcotic agent; Z98.51 Tubal ligation status; Z85.828 Personal history of other malignant neoplasm of skin; Z82.49 Family history of ischemic heart disease and other diseases of the circulatory system; Z80.49 Family history of malignant neoplasm of other genital organs; Z20.822 Contact with and (suspected) exposure to COVID-19
CPT/HCPCS: 36415; 43239; 43450; 80053; 85025; 85610; 85730; 88305; 88342; J1200; J2250; J3010; J7030; U0003; G0500

== ENCOUNTER → 2021-09-16 | Outpatient (CLI) | payer MEDICARE ==
[~2021-09-16] MED LIST changes: +CYCL0.05 EACHEYE; +LACT10PA2 PO; +LEV50T PO; +ONDA-144 PO; +[UNRECOGNIZED DRUG - CODE] PO
[2021-09-16 11:11] LABS: Cholesterol 245 mg/dL (< 200); HDL Cholesterol 48 mg/dL (40-59); LDL Cholesterol 156 mg/dL (< 100); Triglycerides 201 mg/dL (< 150)
== END | disposition home or self-care (01) ==
LOC: LAB 10:00
PROVIDERS: ATTEND Internal Medicine
DX: E03.9 Hypothyroidism, unspecified (principal)
CPT/HCPCS: 36415; 80061; 84443

== ENCOUNTER 2021-09-17 05:40 | Inpatient (IN) | payer MEDICARE, OTHER ==
[~2021-09-17] VITALS: Ht 160 cm; Wt 70.3 kg
[~2021-09-17 05:40] MED LIST changes: -CYCL0.05 EACHEYE; -LACT10PA2 PO; -LEV50T PO; -ONDA-144 PO; -[UNRECOGNIZED DRUG - CODE] PO
[2021-09-17] MEDS ORDERED: MORPHINE SULFATE INJ 2 MG/ml SYRG IV ONE (06:45)
[2021-09-17] MEDS ORDERED: ONDANSETRON HCL 4 MG/2 ML VIAL IV ONE (06:45)
[2021-09-17 07:15] LABS: Basophils # (auto) 0 10 ^3/uL (0-0.2); Eosinophils # (auto) 0 10 ^3/uL (0-0.8); Eosinophils % (auto) 0.1 % (0.0-7.0); Monocytes # (auto) 0.8 10 ^3/uL (0-1.3); Neutrophils # (auto) 13.3 10 ^3/uL (1.6-8.6)
[2021-09-17 07:19] LABS: Basophils % (auto) 0.3 % (0.0-2.0); Hematocrit 37.5 % (36.0-46.0); Hemoglobin 12.5 g/dL (12.2-16.2); Lymphocytes # (auto) 1.3 10 ^3/uL (0.4-5.4); Lymphocytes % (auto) 8.6 % (10.0-50.0); Mean Corpuscular Hemoglobin 30.3 pg (28.0-32.0); Mean Corpuscular Hgb Conc. 33.3 g/dL (32.0-36.0); Mean Corpuscular Volume 91.2 fL (80.0-100.0); Red Blood Cells 4.11 10^6/uL (4.0-5.20); Red Cell Distribution Width 15.8 % (11.8-14.3); White Blood Cell 15.5 10^3/uL (4.4-10.8)
[2021-09-17 07:31] LABS: Potassium 3.3 mmol/L (3.5-5.1)
[2021-09-17 07:35] LABS: BUN/Creatinine Ratio 14.3; Calcium 9.9 mg/dL (8.5-10.1)
[2021-09-17 07:48] LABS: Bilirubin, Total 0.6 mg/dL (0.2-1.0); Total Protein 7.9 g/dL (6.4-8.2)
[2021-09-17] MEDS ORDERED: POTASSIUM CHL 20MEQ/100ML 100 ML IV ONE (08:15)
[2021-09-17] MEDS ORDERED: cefTRIAXone 1GM/50ML D5W 50 ML IV ONE (08:15)
[2021-09-17] MEDS ORDERED: HYDROmorphone HCL 2 MG/ML VL/or syr IV ONE (08:30)
[2021-09-17 13:10] LABS: Urine Bacteria NONE SEEN /hpf (None Seen); Urine Blood TRACE /uL (Negative); Urine Mucus FEW (None Seen); Urine Specific Gravity 1.018 (1.001-1.035); Urine WBC 4 /hpf (0 - 5)
[2021-09-17] MEDS ORDERED: ACETAMINOPHEN 325 MG TAB PO PRN (13:30)
[2021-09-17] MEDS ORDERED: DOCUSATE SOD 100 MG CAP PO PRN (13:30)
[2021-09-17] MEDS: SOD CHL 0.45% 1,000 ML IV SCH (14:08)
[2021-09-17] MEDS: ONDANSETRON HCL 4 MG/2 ML VIAL IV PRN ×2 (14:08→20:44)
[2021-09-17] MEDS ORDERED: MORPHINE SULFATE INJ 2 MG/ml SYRG IV PRN (14:30)
[2021-09-17] MEDS ORDERED: NITROGLYCERIN 0.4 MG SL TAB SL PRN (14:30)
[2021-09-17] MEDS ORDERED: GASTROGRAFIN 120 ML SOL ONE (15:35)
[2021-09-17] MEDS: metroNIDAZOLE 500MG/100ML 100 ML IV SCH ×2 (15:52→22:41)
[2021-09-17] MEDS ORDERED: CYCL0.05 EACHEYE (20:21)
[2021-09-17] MEDS ORDERED: LACT10PA2 PO (20:21)
[2021-09-17] MEDS ORDERED: LEV50T PO (20:21)
[2021-09-17] MEDS ORDERED: [UNRECOGNIZED DRUG - CODE] PO (20:21)
[2021-09-17] MEDS ORDERED: ONDA-144 PO (20:21)
[2021-09-17] MEDS: HYDROmorphone HCL 2 MG/ML VL/or syr IV PRN (20:42)
[2021-09-17] MEDS: ASCORBIC ACID 500 MG TAB PO SCH (22:00)
[2021-09-17] MEDS: FAMOTIDINE (10MG/ML) 2ML VL IV SCH (22:41)
[2021-09-18 05:00] VITALS: BP 121/62
[2021-09-18 05:48] LABS: Basophils # (auto) 0 10 ^3/uL (0-0.2); Basophils % (auto) 0.3 % (0.0-2.0); Eosinophils # (auto) 0 10 ^3/uL (0-0.8); Eosinophils % (auto) 0.5 % (0.0-7.0); Hematocrit 33.5 % (36.0-46.0); Hemoglobin 11.1 g/dL (12.2-16.2); Lymphocytes # (auto) 2.1 10 ^3/uL (0.4-5.4); Lymphocytes % (auto) 22.9 % (10.0-50.0); Mean Corpuscular Hemoglobin 30.6 pg (28.0-32.0); Mean Corpuscular Volume 92.9 fL (80.0-100.0); Monocytes # (auto) 0.9 10 ^3/uL (0-1.3); Monocytes % (auto) 9.9 % (0.0-12.0); Neutrophils # (auto) 6.1 10 ^3/uL (1.6-8.6); Neutrophils % (auto) 66.4 % (37.0-80.0); Red Blood Cells 3.61 10^6/uL (4.0-5.20); Red Cell Distribution Width 16.2 % (11.8-14.3); White Blood Cell 9.2 10^3/uL (4.4-10.8)
[2021-09-18 06:15] LABS: Calcium 8.3 mg/dL (8.5-10.1); Potassium 3.2 mmol/L (3.5-5.1)
[2021-09-18] MEDS: LEVOTHYROXINE SODIUM 25 MCG TAB PO SCH (06:36)
[2021-09-18] MEDS: metroNIDAZOLE 500MG/100ML 100 ML IV SCH ×3 (06:36→22:38)
[2021-09-18 07:17] LABS: Albumin 3.4 g/dL (3.4-5.0); BUN/Creatinine Ratio 21.1; Bilirubin, Total 0.5 mg/dL (0.2-1.0); Total Protein 6.8 g/dL (6.4-8.2)
[2021-09-18 09:00] VITALS: BP 132/64
[2021-09-18] MEDS: cefTRIAXone 1GM/50ML D5W 50 ML IV SCH (09:29)
[2021-09-18] MEDS: ENOXAPARIN SOD 40 MG/0.4 ML SYRINGE SC SCH (09:29)
[2021-09-18] MEDS: ASCORBIC ACID 500 MG TAB PO SCH ×2 (09:30→22:39)
[2021-09-18] MEDS: ZINC SULFATE 220mg CAP or TAB PO SCH (09:30)
[2021-09-18] MEDS: SOD CHL 0.45% 1,000 ML IV SCH (09:30)
[2021-09-18] MEDS: FAMOTIDINE (10MG/ML) 2ML VL IV SCH ×2 (10:00→22:39)
[2021-09-18 13:00] VITALS: BP 127/63
[2021-09-18] MEDS: ONDANSETRON HCL 4 MG/2 ML VIAL IV PRN ×2 (14:55→17:59)
[2021-09-18] MEDS: HYDROmorphone HCL 2 MG/ML VL/or syr IV PRN (14:55)
[2021-09-18 17:00] VITALS: BP 126/95
[2021-09-18 22:00] VITALS: BP 117/49
[2021-09-18] MEDS: OXYBUTYNIN CHL 5 MG TAB PO SCH (22:39)
[2021-09-18] MEDS: traZODone HCL 50 MG TAB PO SCH (22:40)
[2021-09-18] MEDS: LORazepam 0.5 MG TAB PO SCH (22:40)
[2021-09-19] MEDS: SOD CHL 0.45% 1,000 ML IV SCH (00:37)
[2021-09-19 05:00] VITALS: BP 120/47
[2021-09-19] MEDS: metroNIDAZOLE 500MG/100ML 100 ML IV SCH ×3 (06:47→21:39)
[2021-09-19] MEDS: LEVOTHYROXINE SODIUM 25 MCG TAB PO SCH (06:48)
[2021-09-19 09:00] VITALS: BP 128/56
[2021-09-19] MEDS: cefTRIAXone 1GM/50ML D5W 50 ML IV SCH (09:00)
[2021-09-19] MEDS ORDERED: SIMVASTATIN 20 MG PO SCH (10:00)
[2021-09-19] MEDS: ENOXAPARIN SOD 40 MG/0.4 ML SYRINGE SC SCH (10:48)
[2021-09-19] MEDS: ASCORBIC ACID 500 MG TAB PO SCH ×2 (10:48→21:39)
[2021-09-19] MEDS: LORazepam 0.5 MG TAB PO SCH ×2 (10:49→21:39)
[2021-09-19] MEDS: ZINC SULFATE 220mg CAP or TAB PO SCH (10:49)
[2021-09-19] MEDS: FAMOTIDINE (10MG/ML) 2ML VL IV SCH ×2 (10:49→21:40)
[2021-09-19] MEDS ORDERED: CLINIMIX PER PHARMACY 0 ML IV SCH (11:00)
[2021-09-19] MEDS: ONDANSETRON HCL 4 MG/2 ML VIAL IV PRN (11:13)
[2021-09-19 12:16] LABS: Albumin 3.2 g/dL (3.4-5.0); Calcium 7.7 mg/dL (8.5-10.1); Magnesium 2.2 mg/dL (1.6-2.6)
[2021-09-19 12:21] LABS: BUN/Creatinine Ratio 22.9; Bilirubin, Total 0.4 mg/dL (0.2-1.0); Phosphorus 1.7 mg/dL (2.5-4.90); Total Protein 6.8 g/dL (6.4-8.2)
[2021-09-19 12:24] LABS: Potassium 2.6 mmol/L (3.5-5.1)
[2021-09-19] MEDS ORDERED: POTASSIUM CHL 20MEQ/100ML 100 ML IV SCH (12:30)
[2021-09-19] MEDS ORDERED: POTASSIUM PHOSPHATE 44 MEQ in D5W 5% 250 ML IV ONE ×2 (12:30→14:30)
[2021-09-19] MEDS ORDERED: DEXTROSE (50%) 50ML SYRG IV SCH (12:45)
[2021-09-19 13:00] VITALS: BP 105/45
[2021-09-19 16:51] VITALS: BP 100/50
[2021-09-19] MEDS ORDERED: ACCU-CHEK COMFORT CURVE STRIP VI SCH (18:00)
[2021-09-19] MEDS ORDERED: InsuLIN REG 1unit/0.01ml Soln (100units/ml) SC SCH (18:00)
[2021-09-19] MEDS: OXYBUTYNIN CHL 5 MG TAB PO SCH (21:40)
[2021-09-19] MEDS: traZODone HCL 50 MG TAB PO SCH (21:40)
[2021-09-19 22:00] VITALS: BP 111/45
[2021-09-20 05:00] VITALS: BP 119/44
[2021-09-20] MEDS: SOD CHL 0.45% 1,000 ML IV SCH ×2 (06:26→21:46)
[2021-09-20] MEDS: LEVOTHYROXINE SODIUM 25 MCG TAB PO SCH (06:26)
[2021-09-20] MEDS: metroNIDAZOLE 500MG/100ML 100 ML IV SCH ×3 (06:26→21:50)
[2021-09-20 07:27] LABS: Basophils # (auto) 0 10 ^3/uL (0-0.2); Basophils % (auto) 0.6 % (0.0-2.0); Eosinophils # (auto) 0.1 10 ^3/uL (0-0.8); Eosinophils % (auto) 1.1 % (0.0-7.0); Hematocrit 30.6 % (36.0-46.0); Hemoglobin 10.1 g/dL (12.2-16.2); Lymphocytes # (auto) 1.5 10 ^3/uL (0.4-5.4); Lymphocytes % (auto) 22.3 % (10.0-50.0); Mean Corpuscular Hemoglobin 29.8 pg (28.0-32.0); Mean Corpuscular Hgb Conc. 32.9 g/dL (32.0-36.0); Mean Corpuscular Volume 90.4 fL (80.0-100.0); Monocytes # (auto) 0.7 10 ^3/uL (0-1.3); Monocytes % (auto) 10.7 % (0.0-12.0); Neutrophils # (auto) 4.5 10 ^3/uL (1.6-8.6); Neutrophils % (auto) 65.3 % (37.0-80.0); Red Blood Cells 3.38 10^6/uL (4.0-5.20); Red Cell Distribution Width 15.6 % (11.8-14.3); White Blood Cell 6.9 10^3/uL (4.4-10.8)
[2021-09-20 07:42] LABS: BUN/Creatinine Ratio 14.3; Bilirubin, Total 0.7 mg/dL (0.2-1.0); Calcium 7.6 mg/dL (8.5-10.1); Total Protein 6.3 g/dL (6.4-8.2)
[2021-09-20 09:00] VITALS: BP 115/40
[2021-09-20] MEDS: ENOXAPARIN SOD 40 MG/0.4 ML SYRINGE SC SCH (09:30)
[2021-09-20] MEDS: FAMOTIDINE (10MG/ML) 2ML VL IV SCH ×2 (09:31→21:51)
[2021-09-20] MEDS: ZINC SULFATE 220mg CAP or TAB PO SCH (09:31)
[2021-09-20] MEDS: ASCORBIC ACID 500 MG TAB PO SCH ×2 (09:31→21:49)
[2021-09-20] MEDS: cefTRIAXone 1GM/50ML D5W 50 ML IV SCH (09:31)
[2021-09-20] MEDS: LORazepam 0.5 MG TAB PO SCH ×2 (09:32→22:18)
[2021-09-20] MEDS: LACTULOSE 20Gm/30ML SOLN PO SCH ×2 (11:25→17:00)
[2021-09-20 13:00] VITALS: BP 120/50
[2021-09-20 17:06] VITALS: BP 109/46
[2021-09-20] MEDS: traZODone HCL 50 MG TAB PO SCH (21:47)
[2021-09-20] MEDS: OXYBUTYNIN CHL 5 MG TAB PO SCH (21:48)
[2021-09-20 22:00] VITALS: BP 109/39
[2021-09-21 05:00] VITALS: BP 110/54
[2021-09-21] MEDS: LACTULOSE 20Gm/30ML SOLN PO SCH ×3 (05:44→11:05)
[2021-09-21] MEDS: metroNIDAZOLE 500MG/100ML 100 ML IV SCH ×2 (05:52→13:55)
[2021-09-21] MEDS: LEVOTHYROXINE SODIUM 25 MCG TAB PO SCH (06:25)
[2021-09-21 08:28] VITALS: BP 108/50
[2021-09-21] MEDS: FAMOTIDINE (10MG/ML) 2ML VL IV SCH (08:46)
[2021-09-21] MEDS: cefTRIAXone 1GM/50ML D5W 50 ML IV SCH (08:46)
[2021-09-21] MEDS: ENOXAPARIN SOD 40 MG/0.4 ML SYRINGE SC SCH (08:46)
[2021-09-21] MEDS: ASCORBIC ACID 500 MG TAB PO SCH (08:47)
[2021-09-21] MEDS: ZINC SULFATE 220mg CAP or TAB PO SCH (08:47)
[2021-09-21] MEDS: LORazepam 0.5 MG TAB PO SCH (08:47)
[2021-09-21] MEDS ORDERED: LEV25T PO (11:19)
[2021-09-21] MEDS ORDERED: LACT10SO3 PO (11:19)
[2021-09-21 12:33] VITALS: BP 108/50
[2021-09-21 13:04] VITALS: BP 121/62
== END 2021-09-21 16:15 | disposition home health service (06) | DRG 390 ==
LOC: ER 05:40 → UNDOADMIN 14:21 → OVERFLOW 14:21 → WEST WING 19:40
PROVIDERS: ADMIT Nurse Practitioner Family; ATTEND Internal Medicine
PROC: 0D9670Z Drainage of Stomach with Drainage Device, Via Natural or Artificial Opening (ICD-10-PCS; principal; 2021-09-17)
DX: K56.609 Unspecified intestinal obstruction, unspecified as to partial versus complete obstruction (principal); D72.829 Elevated white blood cell count, unspecified; D75.839 Thrombocytosis, unspecified; E78.5 Hyperlipidemia, unspecified; E87.6 Hypokalemia; F32.A Depression, unspecified; I10 Essential (primary) hypertension; E03.9 Hypothyroidism, unspecified; Z20.822 Contact with and (suspected) exposure to COVID-19; K21.9 Gastro-esophageal reflux disease without esophagitis; Z80.0 Family history of malignant neoplasm of digestive organs; Z81.8 Family history of other mental and behavioral disorders; Z79.899 Other long term (current) drug therapy; Z82.3 Family history of stroke; Z82.49 Family history of ischemic heart disease and other diseases of the circulatory system; Z88.5 Allergy status to narcotic agent; Z91.012 Allergy to eggs; Z91.011 Allergy to milk products
CPT/HCPCS: 36415; 71045; 74018; 74176; 74250; 80053; 81001; 83036; 83605; 83690; 83735; 84100; 84132; 84443; 84478; 85025; 87040; 93005; 96365; 96366; 96367; 96375; G0378; J0696; J2405; J3480; J3490; J7060

== ENCOUNTER → 2021-10-14 | Outpatient (CLI) | payer MEDICARE, OTHER ==
[~2021-10-14] MED LIST changes: -CHOL4POW PO; +CYCL0.05 EACHEYE; +LACT10PA2 PO; +LACT10SO3 PO; +LEV25T PO; +ONDA-144 PO; +[UNRECOGNIZED DRUG - CODE] PO
[2021-10-14 14:02] LABS: Basophils # (auto) 0.1 10 ^3/uL (0-0.2); Basophils % (auto) 0.8 % (0.0-2.0); Eosinophils # (auto) 0.1 10 ^3/uL (0-0.8); Eosinophils % (auto) 1.6 % (0.0-7.0); Hematocrit 35.4 % (36.0-46.0); Hemoglobin 11.2 g/dL (12.2-16.2); Lymphocytes # (auto) 2.7 10 ^3/uL (0.4-5.4); Mean Corpuscular Hemoglobin 29.3 pg (28.0-32.0); Mean Corpuscular Hgb Conc. 31.8 g/dL (32.0-36.0); Mean Corpuscular Volume 92.1 fL (80.0-100.0); Monocytes # (auto) 0.7 10 ^3/uL (0-1.3); Monocytes % (auto) 8.6 % (0.0-12.0); Neutrophils # (auto) 4.3 10 ^3/uL (1.6-8.6); Red Blood Cells 3.84 10^6/uL (4.0-5.20); Red Cell Distribution Width 15.8 % (11.8-14.3); White Blood Cell 7.9 10^3/uL (4.4-10.8)
[2021-10-14 14:05] LABS: Urine Bacteria NONE SEEN /hpf (None Seen); Urine Blood Negative /uL (Negative); Urine Specific Gravity 1.005 (1.001-1.035); Urine WBC 14 /hpf (0 - 5)
== END | disposition home or self-care (01) ==
LOC: LAB 13:40
PROVIDERS: ATTEND Internal Medicine
DX: N18.31 Chronic kidney disease, stage 3a (principal); D72.829 Elevated white blood cell count, unspecified
CPT/HCPCS: 36415; 81001; 85025

== ENCOUNTER → 2021-11-25 | Outpatient (CLI) | payer MEDICARE, OTHER ==
[2021-11-25 15:59] LABS: Urine Bacteria NONE SEEN /hpf (None Seen); Urine Blood TRACE /uL (Negative); Urine Specific Gravity 1.007 (1.001-1.035); Urine WBC 2 /hpf (0 - 5)
== END | disposition home or self-care (01) ==
LOC: LAB 15:16
PROVIDERS: ATTEND Internal Medicine
DX: R39.9 Unspecified symptoms and signs involving the genitourinary system (principal)
CPT/HCPCS: 81001; 87086

== ENCOUNTER → 2021-12-07 | Outpatient (CLI) | payer MEDICARE, BC | END | disposition home or self-care (01) | LOC: LAB 11:27 | PROVIDERS: ATTEND Internal Medicine | DX: R10.9 Unspecified abdominal pain (principal); Z87.19 Personal history of other diseases of the digestive system | CPT/HCPCS: 36415; 82565; 84520 ==

== ENCOUNTER → 2021-12-21 | Outpatient (CLI) | payer MEDICARE, BC ==
[2021-12-21 12:35] LABS: Cholesterol 168 mg/dL (< 200); HDL Cholesterol 74 mg/dL (40-59); LDL Cholesterol 78 mg/dL (< 100); Triglycerides 75 mg/dL (< 150)
== END | disposition home or self-care (01) ==
LOC: LAB 11:23
PROVIDERS: ATTEND Internal Medicine
DX: E78.5 Hyperlipidemia, unspecified (principal); Z12.11 Encounter for screening for malignant neoplasm of colon
CPT/HCPCS: 36415; 80061

== ENCOUNTER → 2022-01-26 | Outpatient (CLI) | payer MEDICARE, BC | END | disposition home or self-care (01) | LOC: LAB 12:27 | PROVIDERS: ATTEND Internal Medicine | DX: E03.9 Hypothyroidism, unspecified (principal) | CPT/HCPCS: 36415; 84443 ==

== ENCOUNTER → 2022-03-28 | Outpatient (CLI) | payer MEDICARE, BC ==
[2022-03-28 12:58] LABS: Cholesterol 191 mg/dL (< 200); HDL Cholesterol 90 mg/dL (40-59); LDL Cholesterol 92 mg/dL (< 100); Triglycerides 186 mg/dL (< 150)
== END | disposition home or self-care (01) ==
LOC: LAB 11:41
PROVIDERS: ATTEND Internal Medicine
DX: E03.9 Hypothyroidism, unspecified (principal); E78.5 Hyperlipidemia, unspecified
CPT/HCPCS: 36415; 80061; 84443

== ENCOUNTER → 2022-07-11 | Outpatient (CLI) | payer MEDICARE, BC ==
[2022-07-11 13:41] LABS: Cholesterol 163 mg/dL (< 200); HDL Cholesterol 72 mg/dL (40-59); LDL Cholesterol 78 mg/dL (< 100); Triglycerides 102 mg/dL (< 150)
== END | disposition home or self-care (01) ==
LOC: LAB 11:17
PROVIDERS: ATTEND Internal Medicine
DX: E78.5 Hyperlipidemia, unspecified (principal); E03.9 Hypothyroidism, unspecified
CPT/HCPCS: 36415; 80061; 84443

== ENCOUNTER → 2023-01-02 | Outpatient (CLI) | payer MEDICARE, BC ==
[~2023-01-02] MED LIST changes: +LORA-1121 PO; -LORA0.5T20 PO; +OXYB5TAB10 PO; -OXYB5TAB61 PO; -SIMV-8 PO; +SIMV20TA20 PO; +TRAZ-227 PO; -TRAZ50TA2 PO
[2023-01-02 12:08] LABS: Basophils # (auto) 0.1 10 ^3/uL (0-0.2); Basophils % (auto) 0.8 % (0.0-2.0); Eosinophils # (auto) 0.1 10 ^3/uL (0-0.8); Eosinophils % (auto) 1.1 % (0.0-7.0); Hematocrit 37.7 % (36.0-46.0); Hemoglobin 12.6 g/dL (12.2-16.2); Lymphocytes # (auto) 2.7 10 ^3/uL (0.4-5.4); Mean Corpuscular Hemoglobin 30.9 pg (28.0-32.0); Mean Corpuscular Hgb Conc. 33.4 g/dL (32.0-36.0); Mean Corpuscular Volume 92.6 fL (80.0-100.0); Monocytes # (auto) 0.6 10 ^3/uL (0-1.3); Monocytes % (auto) 8.2 % (0.0-12.0); Neutrophils # (auto) 4.4 10 ^3/uL (1.6-8.6); Neutrophils % (auto) 55.9 % (37.0-80.0); Red Blood Cells 4.07 10^6/uL (4.0-5.20); Red Cell Distribution Width 14.8 % (11.8-14.3); White Blood Cell 7.8 10^3/uL (4.4-10.8)
[2023-01-02 13:34] LABS: Alanine Aminotransferase 17 U/L (7-40); Alkaline Phosphatase 59 U/L (46-116); Anion Gap 8 (5-15); BUN/Creatinine Ratio 21.9 (10.0-20.0); Blood Urea Nitrogen 16 mg/dL (9-23); Calcium 9.9 mg/dL (8.5-10.1); Carbon Dioxide 26 mmol/L (20-30); Chloride 107 mmol/L (98-107); Glucose 95 mg/dL (74-106); LDL Cholesterol 73 mg/dL (< 100); Potassium 3.9 mmol/L (3.5-5.1); Sodium 141 mmol/L (136-145); Triglycerides 101 mg/dL (< 150)
[2023-01-02 13:35] LABS: Albumin 4.8 g/dL (3.2-4.8); Aspartate Aminotransferase 14 U/L (13-40); Cholesterol 152 mg/dL (< 200); HDL Cholesterol 63 mg/dL (40-59)
[2023-01-02 13:36] LABS: Bilirubin, Total 0.5 mg/dL (0.2-1.0); Total Protein 7.1 g/dL (5.7-8.2)
[2023-01-02 15:47] LABS: Urine Bacteria NONE SEEN /hpf (None Seen); Urine Blood TRACE /uL (Negative); Urine Clarity Clear (Clear); Urine Color Yellow (Yellow); Urine Mucus FEW (None Seen); Urine Protein, UAD Negative (Negative); Urine Specific Gravity 1.012 (1.001-1.035); Urine Urobilinogen Normal (Negative); Urine WBC 30 /hpf (0 - 5); Urine pH 6.5 (5.0-8.0)
== END | disposition home or self-care (01) ==
LOC: LAB 11:28
PROVIDERS: ATTEND Internal Medicine
DX: R10.9 Unspecified abdominal pain (principal); E78.5 Hyperlipidemia, unspecified; Z79.899 Other long term (current) drug therapy
CPT/HCPCS: 36415; 80053; 80061; 81001; 83036; 84443; 85025

== ENCOUNTER → 2023-01-16 | Outpatient (CLI) | payer MEDICARE, BC ==
[2023-01-16 14:41] LABS: Urine Bacteria NONE SEEN /hpf (None Seen); Urine Blood 2+ /uL (Negative); Urine Clarity HAZY (Clear); Urine Color Yellow (Yellow); Urine Hyaline Cast FEW /lpf (0 - 2); Urine Mucus FEW (None Seen); Urine Protein, UAD TRACE (Negative); Urine Specific Gravity 1.019 (1.001-1.035); Urine Urobilinogen Normal (Negative); Urine WBC 317 /hpf (0 - 5); Urine WBC Clumps PRESENT /hpf (None Seen)
[2023-01-16 15:06] LABS: Erythrocyte Sedimentation Rate 16 mm/hr (0-20)
[2023-01-17 07:06] LABS: Rheumatoid Arthritis Factor <10.0 IU/mL (<14.0)
[2023-01-17 12:07] LABS: Anti-Nuclear Antibody Direct Negative (Negative)
== END | disposition home or self-care (01) ==
LOC: LAB 14:03
PROVIDERS: ATTEND Internal Medicine
DX: M54.50 Low back pain, unspecified (principal); N39.0 Urinary tract infection, site not specified
CPT/HCPCS: 36415; 81001; 85652; 86038; 86141; 86431

== ENCOUNTER → 2023-03-22 | Outpatient (CLI) | payer MEDICARE, BC ==
[2023-03-22 14:33] LABS: CRP High Sensitivity 0.64 mg/dL (<1.0)
[2023-03-22 15:19] LABS: Erythrocyte Sedimentation Rate 15 mm/hr (0-20)
== END | disposition home or self-care (01) ==
LOC: LAB 13:53
PROVIDERS: ATTEND Internal Medicine
DX: M47.815 Spondylosis without myelopathy or radiculopathy, thoracolumbar region (principal); M54.50 Low back pain, unspecified; R07.81 Pleurodynia
CPT/HCPCS: 36415; 82550; 85652; 86141

== ENCOUNTER → 2023-04-12 | Outpatient (CLI) | payer MEDICARE, BC ==
[2023-04-12 15:04] LABS: Folate (Folic Acid) 22.09 ng/mL (>5.38)
[2023-04-13 05:08] LABS: RPR Non Reactive (Non Reactive)
== END | disposition home or self-care (01) ==
LOC: LAB 13:27
PROVIDERS: ATTEND Internal Medicine
DX: M62.82 Rhabdomyolysis (principal); R41.3 Other amnesia; Z79.899 Other long term (current) drug therapy
CPT/HCPCS: 36415; 82306; 82550; 82607; 82746; 84443; 86592

== ENCOUNTER → 2023-06-06 | Outpatient (CLI) | payer MEDICARE, BC ==
[2023-06-06 13:56] LABS: Urine WBC None Seen /hpf (0 - 5)
[2023-06-06 14:20] LABS: Urine Bacteria NONE SEEN /hpf (None Seen); Urine Blood Negative /uL (Negative); Urine Clarity Clear (Clear); Urine Color Colorless (Yellow); Urine Protein, UAD Negative (Negative); Urine Specific Gravity 1.007 (1.001-1.035); Urine Urobilinogen Normal (Negative)
[2023-06-06 15:05] LABS: Erythrocyte Sedimentation Rate 12 mm/hr (0-20)
== END | disposition home or self-care (01) ==
LOC: LAB 13:40
PROVIDERS: ATTEND Internal Medicine
DX: R41.3 Other amnesia (principal); N39.0 Urinary tract infection, site not specified
CPT/HCPCS: 36415; 81001; 84207; 85652; 86141; 87086

== ENCOUNTER 2023-06-20 19:28 | Inpatient (IN) | payer MEDICARE, BC ==
[~2023-06-20] VITALS: Ht 154.9 cm; Wt 76.3 kg
[~2023-06-20 19:28] MED LIST changes: -OXYB5TAB10 PO; +OXYB5TAB14 PO
[2023-06-20 20:24] LABS: Basophils # (auto) 0 10 ^3/uL (0-0.2); Basophils % (auto) 0.4 % (0.0-2.0); Eosinophils # (auto) 0.1 10 ^3/uL (0-0.8); Eosinophils % (auto) 0.7 % (0.0-7.0); Hematocrit 40.3 % (36.0-46.0); Hemoglobin 13.3 g/dL (12.2-16.2); Lymphocytes # (auto) 2.1 10 ^3/uL (0.4-5.4); Mean Corpuscular Hemoglobin 30.7 pg (28.0-32.0); Mean Corpuscular Hgb Conc. 33.1 g/dL (32.0-36.0); Mean Corpuscular Volume 92.8 fL (80.0-100.0); Monocytes # (auto) 1.1 10 ^3/uL (0-1.3); Monocytes % (auto) 11.2 % (0.0-12.0); Neutrophils # (auto) 6.7 10 ^3/uL (1.6-8.6); Neutrophils % (auto) 66.7 % (37.0-80.0); Red Blood Cells 4.34 10^6/uL (4.0-5.20); Red Cell Distribution Width 14.1 % (11.8-14.3)
[2023-06-20 20:43] LABS: Alanine Aminotransferase 11 U/L (7-40); Albumin 4.7 g/dL (3.2-4.8); Alkaline Phosphatase 64 U/L (46-116); Anion Gap 9 (5-15); Aspartate Aminotransferase 14 U/L (13-40); BUN/Creatinine Ratio 18.2 (10.0-20.0); Bilirubin, Total 0.6 mg/dL (0.2-1.0); Blood Urea Nitrogen 14 mg/dL (9-23); Carbon Dioxide 24 mmol/L (20-30); Chloride 105 mmol/L (98-107); Glucose 104 mg/dL (74-106); Lipase 40 U/L (12-53); Potassium 3.5 mmol/L (3.5-5.1); Sodium 138 mmol/L (136-145); Total Protein 7.3 g/dL (5.7-8.2)
[2023-06-20 20:49] LABS: INR 1.04 (0.9-1.15); Prothrombin Time 10.9 sec (9.3-11.8)
[2023-06-20] MEDS: ONDANSETRON HCL 4 MG/2 ML VIAL IV ONE (21:36)
[2023-06-20] MEDS: PANTOPRAZOLE 40 MG/10 ML VIAL INJ IV ONE (21:36)
[2023-06-20] MEDS: SODIUM CHLORIDE 0.9% 1,000 ML IV ONE (21:36)
[2023-06-20] MEDS ORDERED: NITROGLYCERIN 0.4 MG SL TAB SL PRN (22:45)
[2023-06-20] MEDS ORDERED: ONDANSETRON HCL 4 MG/2 ML VIAL IV PRN (22:45)
[2023-06-20] MEDS ORDERED: MORPHINE SULFATE INJ 2 MG/ml SYRG IV PRN ×2 (22:45)
[2023-06-20] MEDS: SODIUM CHLORIDE 0.9% 1,000 ML IV SCH (23:20)
[2023-06-21] VITALS (8 sets, daily range): BP systolic 105–149; BP diastolic 43–86; PULSE 63–71; RESP 18–19; TEMP 98.2–99.1; O2SAT 95–98
[2023-06-21] MEDS ORDERED: SERT-206 PO (00:55)
[2023-06-21] MEDS ORDERED: MELO15TA29 PO (00:55)
[2023-06-21] MEDS ORDERED: DICY10CA PO (00:55)
[2023-06-21 07:00] LABS: Basophils # (auto) 0 10 ^3/uL (0-0.2); Basophils % (auto) 0.5 % (0.0-2.0); Eosinophils # (auto) 0.1 10 ^3/uL (0-0.8); Eosinophils % (auto) 1.9 % (0.0-7.0); Hematocrit 35.8 % (36.0-46.0); Hemoglobin 11.8 g/dL (12.2-16.2); Lymphocytes # (auto) 2.1 10 ^3/uL (0.4-5.4); Lymphocytes % (auto) 27.3 % (10.0-50.0); Mean Corpuscular Hemoglobin 30.6 pg (28.0-32.0); Mean Corpuscular Hgb Conc. 32.9 g/dL (32.0-36.0); Mean Corpuscular Volume 92.9 fL (80.0-100.0); Monocytes # (auto) 0.9 10 ^3/uL (0-1.3); Monocytes % (auto) 11.4 % (0.0-12.0); Neutrophils # (auto) 4.6 10 ^3/uL (1.6-8.6); Neutrophils % (auto) 58.9 % (37.0-80.0); Red Blood Cells 3.86 10^6/uL (4.0-5.20); White Blood Cell 7.8 10^3/uL (4.4-10.8)
[2023-06-21 07:14] LABS: Alkaline Phosphatase 53 U/L (46-116); Anion Gap 9 (5-15); Aspartate Aminotransferase < 8 U/L (13-40); BUN/Creatinine Ratio 19.4 (10.0-20.0); Blood Urea Nitrogen 12 mg/dL (9-23); Calcium 8.5 mg/dL (8.5-10.1); Carbon Dioxide 22 mmol/L (20-30); Chloride 110 mmol/L (98-107); Glucose 86 mg/dL (74-106); Sodium 141 mmol/L (136-145)
[2023-06-21 07:15] LABS: Alanine Aminotransferase < 9 U/L (7-40); Albumin 4.1 g/dL (3.2-4.8); Bilirubin, Total 0.5 mg/dL (0.2-1.0); Total Protein 6.1 g/dL (5.7-8.2)
[2023-06-21] MEDS: GASTROGRAFIN 120 ML SOL ONE (10:29)
[2023-06-21] MEDS: PANTOPRAZOLE 40 MG/10 ML VIAL INJ IV SCH (12:54)
[2023-06-21] MEDS: POTASSIUM CHLORIDE 40 MEQ, LIDOCAINE 1% (LOCAL ANESTH.) 4 ML in SODIUM CHL 0.9% 250 ML IV ONE (12:55)
[2023-06-21] MEDS: metroNIDAZOLE 500MG/100ML 100 ML IV SCH (16:02)
[2023-06-21] MEDS ORDERED: TRAZ1TAB12 PO (16:09)
[2023-06-21] MEDS ORDERED: SERT25TA28 PO (16:09)
[2023-06-21] MEDS ORDERED: SUCR1TAB PO (16:13)
[2023-06-21] MEDS ORDERED: GABA-1308 PO (16:13)
[2023-06-22] VITALS (7 sets, daily range): BP systolic 102–129; BP diastolic 52–56; PULSE 57–70; RESP 17–19; TEMP 37.1; O2SAT 95–98
[2023-06-22 08:54] LABS: Hepatitis B Surface Antigen Negative (Negative)
[2023-06-22 09:15] LABS: Hepatitis C Antibody Negative (Negative)
[2023-06-22] MEDS ORDERED: METR-344 PO (10:18)
[2023-06-22] MEDS ORDERED: DIPH2.5T73 PO (17:48)
[2023-06-22] MEDS ORDERED: LOP2C PO (17:50)
== END 2023-06-22 17:53 | disposition home or self-care (01) | DRG 391 ==
LOC: ER 19:28 → TELE 22:38 → TELE-CENTR 23:48
PROVIDERS: ADMIT Internal Medicine; ATTEND Internal Medicine
DX: K52.9 Noninfective gastroenteritis and colitis, unspecified (principal); K57.31 Diverticulosis of large intestine without perforation or abscess with bleeding; R18.8 Other ascites; E03.9 Hypothyroidism, unspecified; E78.5 Hyperlipidemia, unspecified; Z91.011 Allergy to milk products; Z90.49 Acquired absence of other specified parts of digestive tract; Z82.49 Family history of ischemic heart disease and other diseases of the circulatory system; Z82.3 Family history of stroke; Z81.8 Family history of other mental and behavioral disorders; Z80.0 Family history of malignant neoplasm of digestive organs
CPT/HCPCS: 36415; 71045; 74176; 74250; 80053; 83690; 85025; 85610; 85730; 86803; 87340; C9113; G0378; J2001; J2405; J3490

== ENCOUNTER → 2023-07-19 | Outpatient (CLI) | payer MEDICARE, BC ==
[~2023-07-19] MED LIST changes: -CYCL0.05 EACHEYE; +DICY10CA PO; +GABA-1308 PO; -LACT10PA2 PO; -LACT10SO3 PO; -LEV25T PO; +LOP2C PO; -LORA-1121 PO; +MELO15TA29 PO; +METR-344 PO; -ONDA-144 PO; +SERT25TA28 PO; +SUCR1TAB PO; -TRAZ-227 PO; +TRAZ1TAB12 PO; -[UNRECOGNIZED DRUG - CODE] PO
== END | disposition home or self-care (01) ==
LOC: LAB 14:38
PROVIDERS: ATTEND Internal Medicine
DX: R06.02 Shortness of breath (principal); R79.89 Other specified abnormal findings of blood chemistry
CPT/HCPCS: 36415; 82565; 84520

== ENCOUNTER → 2023-09-05 | Outpatient (CLI) | payer MEDICARE, BC ==
[2023-09-05 14:28] LABS: Basophils # (auto) 0.1 10 ^3/uL (0-0.2); Basophils % (auto) 0.9 % (0.0-2.0); Eosinophils # (auto) 0.1 10 ^3/uL (0-0.8); Eosinophils % (auto) 1.2 % (0.0-7.0); Hematocrit 34.8 % (36.0-46.0); Hemoglobin 11.6 g/dL (12.2-16.2); Lymphocytes # (auto) 2.6 10 ^3/uL (0.4-5.4); Lymphocytes % (auto) 25.1 % (10.0-50.0); Mean Corpuscular Hemoglobin 30.3 pg (28.0-32.0); Mean Corpuscular Hgb Conc. 33.3 g/dL (32.0-36.0); Mean Corpuscular Volume 91.2 fL (80.0-100.0); Monocytes # (auto) 0.8 10 ^3/uL (0-1.3); Neutrophils # (auto) 6.8 10 ^3/uL (1.6-8.6); Neutrophils % (auto) 64.8 % (37.0-80.0); Red Blood Cells 3.82 10^6/uL (4.0-5.20); Red Cell Distribution Width 14.8 % (11.8-14.3); White Blood Cell 10.5 10^3/uL (4.4-10.8)
[2023-09-05 14:50] LABS: Alanine Aminotransferase 10 U/L (7-40); Albumin 4.5 g/dL (3.2-4.8); Alkaline Phosphatase 76 U/L (46-116); Anion Gap 5 (5-15); Aspartate Aminotransferase 11 U/L (13-40); BUN/Creatinine Ratio 14.3 (10.0-20.0); Blood Urea Nitrogen 11 mg/dL (9-23); Calcium 10.2 mg/dL (8.5-10.1); Carbon Dioxide 28 mmol/L (20-30); Chloride 106 mmol/L (98-107); Glucose 113 mg/dL (74-106); Potassium 3.7 mmol/L (3.5-5.1); Sodium 139 mmol/L (136-145)
[2023-09-05 14:51] LABS: Bilirubin, Total 0.3 mg/dL (0.2-1.0); Total Protein 6.7 g/dL (5.7-8.2)
== END | disposition home or self-care (01) ==
LOC: LAB 14:16
PROVIDERS: ATTEND Internal Medicine
DX: R79.89 Other specified abnormal findings of blood chemistry (principal); I26.99 Other pulmonary embolism without acute cor pulmonale
CPT/HCPCS: 36415; 80053; 85025

== ENCOUNTER → 2023-10-05 | Outpatient (CLI) | payer MEDICARE, BC | END | disposition home or self-care (01) | LOC: XYW 09:06 | PROVIDERS: ATTEND Internal Medicine | DX: R06.02 Shortness of breath (principal); R42 Dizziness and giddiness | CPT/HCPCS: 93886 ==

== ENCOUNTER → 2023-10-23 | Outpatient (CLI) | payer MEDICARE, BC | END | disposition home or self-care (01) | LOC: XY 12:31 | PROVIDERS: ATTEND Internal Medicine | DX: I51.89 Other ill-defined heart diseases (principal); R06.02 Shortness of breath; R42 Dizziness and giddiness | CPT/HCPCS: 93306 ==

== ENCOUNTER → 2023-11-13 | Outpatient (CLI) | payer MEDICARE, BC ==
[~2023-11-13] MED LIST changes: -LOP2C PO; +LOPE2CAP16 PO
== END | disposition home or self-care (01) ==
LOC: LAB 15:07
PROVIDERS: ATTEND Internal Medicine
DX: Z12.11 Encounter for screening for malignant neoplasm of colon (principal); R06.02 Shortness of breath; R42 Dizziness and giddiness; D64.9 Anemia, unspecified
CPT/HCPCS: 82270

== ENCOUNTER → 2023-12-20 | Outpatient (CLI) | payer MEDICARE, BC ==
[2023-12-20 14:56] LABS: Basophils # (auto) 0.1 10 ^3/uL (0-0.2); Eosinophils # (auto) 0.1 10 ^3/uL (0-0.8); Hematocrit 34.7 % (36.0-46.0); Hemoglobin 11.9 g/dL (12.2-16.2); Lymphocytes # (auto) 2.3 10 ^3/uL (0.4-5.4); Lymphocytes % (auto) 31.6 % (10.0-50.0); Mean Corpuscular Hemoglobin 31.2 pg (28.0-32.0); Mean Corpuscular Hgb Conc. 34.2 g/dL (32.0-36.0); Mean Corpuscular Volume 91.2 fL (80.0-100.0); Monocytes # (auto) 0.7 10 ^3/uL (0-1.3); Monocytes % (auto) 9.1 % (0.0-12.0); Neutrophils # (auto) 4.1 10 ^3/uL (1.6-8.6); Neutrophils % (auto) 56.3 % (37.0-80.0); Nucleated Red Blood Cells % 0.1 %; Platelet Count (auto) 249 10^3/uL (140-450); Red Blood Cells 3.81 10^6/uL (4.0-5.20); Red Cell Distribution Width 14.4 % (11.8-14.3); White Blood Cell 7.3 10^3/uL (4.4-10.8)
[2023-12-20 15:19] LABS: Urine Bacteria MOD /hpf (None Seen); Urine Blood 1+ /uL (Negative); Urine Clarity Turbid (Clear); Urine Color Colorless (Yellow); Urine Protein, UAD Negative (Negative); Urine Specific Gravity 1.008 (1.001-1.035); Urine Urobilinogen Normal (Negative); Urine WBC 66 /hpf (0 - 5); Urine pH 6.5 (5.0-9.0)
[2023-12-20 16:08] LABS: Erythrocyte Sedimentation Rate 20 mm/hr (0-20)
== END | disposition home or self-care (01) ==
LOC: LAB 14:21
PROVIDERS: ATTEND Internal Medicine
DX: Z12.11 Encounter for screening for malignant neoplasm of colon (principal); R06.02 Shortness of breath; D64.9 Anemia, unspecified
CPT/HCPCS: 36415; 81001; 83880; 84443; 85025; 85379; 85652; 86141

== ENCOUNTER 2024-02-01 13:45 | Inpatient (IN) | payer MEDICARE, BC ==
[~2024-02-01] VITALS: Ht 157.5 cm; Wt 75.7 kg
--- NOTE | 2024-02-01 14:17 | ED.PDOC ---
HPI Comments HPI: Poor Historian. 73-year-old female sent by a Dr. Hannah the urologist office for hypotension. Patient states she has been having generalized weakness and near-syncope for the last two months. Patient denies any focal neurological deficits. Patient states having a headache status post mechanical fall approximately three months ago. VITALS; TEMP: 98.0 F HEART RATE; 70 02 SAT; 98% on room air RR; 18 BP; 136/76 PMH: UTI, diverticulitis, IBS, constipation, HLD, hypothyroidism PSH: colon SOCIAL HISTORY: denies tobacco use, denies etoh use, denies drug use MEDS; denies ALLERGIES; codeine, egg yolk, milk related compounds REVIEW OF SYSTEMS: CONSTITUTIONAL: Denies acute: fever, diaphoresis, chills, HEAD: Denies acute: photophobia Eyes: Denies acute: Double vision, vision loss, eye pain, eye discharge. EARS: Denies acute: tinnitus, hearing loss, ear discharge, ear pain, THROAT: Denies acute: sore throat, swelling, difficulty swallowing , pain with swal lowing, change in voice. NECK: Denies acute: neck pain, neck swelling, stiff neck. HEART: Denies acute : chest pain, palpitations, LUNGS: Denies acute: SOB, wheezing, cough, hemoptysis ABDOMEN: Denies acute: abdominal pain, Nausea, Vomiting, diarrhea, melena , hematemesis, hematochezia SKIN: Denies acute: rash, redness, lesions, itchiness. EXTREMITIES: Denies acute: calf pain, numbness, tingling, weakness, denies pain in extremity. Denies acute: Low back pain. Neuro: Denies acute: focal neurological deficit, motor or sensory focal neurological deficit, tremors, seizure like activity, confusion, dizziness, change in mental status, loss of bowel or bladder function, cauda equina like symptoms. : Denies acute: dysuria, hematuria, flank pain, increase in urinary frequency. PSYCH: Denies acute: hallucination, suicidal ideation, homicidal ideation. FEMALE: Denies acute: abnormal vaginal bleeding, foul odor, unusual discharge. PHYSICAL EXAM: General: no acute distress, awake and alert. Head: normocephalic, atraumatic. Neck: supple, trachea is midline, no swelling. Throat: Normal phonation. Eyes:, no erythema, no purulent discharge, no proptosis, no icterus. Heart: regular rate, regular rhythm, no significant murmur appreciated. Lungs: no apparent respiratory distress, Able to speak in full sentences. No wheezing, no rhonchi, no crackles. No stridors Clear to auscultation bilaterally. Abdomen: non tender to palpation, non distended, soft, no guarding, no rebound, + bowel sounds. Neuro: Awake, Alert, oriented to name, self, situation, follows commands GCS=15. Speech is normal. Skin: no petechia, no purpura, no cyanosis, non-pale, not jaundice. Lower extremities: --2/4 b/l - Pitting edema no deformity, no focal swelling, no calf TTP. Makes eye contact. moves all four extremities. Face: no apparent facial droop. Ambulating in the ED independently. Stroke: finger to nose cerebellar testing is intact. No pronator drift. Symmetrical personal banking representative muscle strength b/l PERRLA, EOM-I CN 2-12 are grossly intact, No nystagmus. No nuchal rigidity, Kernig's sign, Brudzinski's sign, no meningeal signs. Chief Complaint: General Weakness Time Seen by MD: 13:58 Primary Care Provider: ÁNGELA Reviewed Notes: Nurses Notes, Medications, Allergies Allergies: Coded Allergies: Codeine (Verified Allergy, Unknown, 05/15/20) Egg Yolk (Verified Allergy, Unknown, 08/06/17) Milk-related Compounds (Verified Allergy, Unknown, MILK ALLERGY, 08/20/19) Home Meds Active Scripts Loperamide Hcl (Imodium) 2 Mg Cp, 2 MG PO Q6HP PRN for 3 Days, #12 CAP Prov:MAI MOON Samantha SECOND HAND P[employer]ER MACHINE 06/22/23 Metronidazole (Flagyl) 500 Mg Tab, 1 TAB PO BID, #14 TAB Prov:MAI MOON Samantha SEC[employer] HAND P[employer]ER MACHINE 06/22/23 Reported Medications Gabapentin (Gabapentin) 100 Mg Cap, 1 TAB PO TID 06/21/23 Sucralfate (Sucralfate) 1 Gm Tab, 1 TAB PO BID 06/21/23 Sertraline Hcl (Sertraline Hcl) 25 Mg Tab, 1 TAB PO DAILY 06/21/23 Trazodone Hcl (Trazodone Hcl) 150 Mg Tab, 1 TAB PO BID 06/21/23 Dicyclomine Hcl (BENTYL CAPSULE) 10 Mg Cp, 1 CAP PO DAILY, #90 CAP 11 Refills 06/21/23 Meloxicam (Meloxicam) 15 Mg Tab, 1 TAB PO DAILY, #30 TAB 2 Refills 06/21/23 Oxybutynin Chloride (Oxybutynin Chloride) 5 Mg Tab, 1 TAB PO BID 07/06/21 Omeprazole (Gnp Omeprazole) 20 Mg Tab, 1 TAB PO DAILY 07/06/21 Levothyroxine Sodium (Levothyroxine Sodium) 25 Mcg Tab, 25 MCG PO DAILY 05/15/20 Simvastatin (Simvastatin) 20 Mg Tab, 20 MG PO DAILY for 30 Days 08/14/19 Information Source: Patient Mode of Arrival: Ambulatory Past Medical History PAST MEDICAL HISTORY: Depression, High Lipids, Thyroid Surgical History: BTL, Tonsillectomy PASTRY MIXER History: No Pertinent PASTRY MIXER History Family History Family History: Reviewed,noncontributory to illness, Family hx of heart josé Social History Smoker: Non-Smoker Alcohol: Denies ETOH Use Drugs: Denies Drug Use Lives In: Home Was a procedure done? Was a procedure done?: No CP Differential Dx Differential Diagnosis: N/A Differential Diagnosis: Other (Includes but not limited to thyroid disease, encephalopathy, electrolyte abnormality, sepsis, infection, intracranial pathology, drug adverse effects, arrhythmia, kidney insufficiency, ACS, CVA, malignancy, anemia) X-Ray, Labs, Meds, VS Vital Signs Date Time Temp Pulse Resp B/P (MAP) Pulse Ox O2 Delivery O2 Flow Rate FiO2 02/01/24 16:15 53 02/01/24 14:20 89 136/93 90 155/89 88 163/90 02/01/24 14:10 98.0 70 18 136/76 (96) 98 Lab Test 02/01/24 16:19 02/01/24 15:10 Range/Units Troponin I High Sensitivity < 3 L < 3 L </=34 ng/L White Blood Count 8.4 4.4-10.8 10^3/uL Red Blood Count 4.04 4.0-5.20 10^6/uL Hemoglobin 12.3 12.2-16.2 g/dL Hematocrit 36.1 36.0-46.0 % Mean Corpuscular Volume 89.5 80.0-100.0 fL Mean Corpuscular Hemoglobin 30.4 28.0-32.0 pg Mean Corpuscular Hemoglobin Concent 34.0 32.0-36.0 g/dL Red Cell Distribution Width 14.9 H 11.8-14.3 % Platelet Count 296 140-450 10^3/uL Mean Platelet Volume 7.9 6.9-10.8 fL Neutrophils (%) (Auto) 60.0 37.0-80.0 % Lymphocytes (%) (Auto) 29.1 10.0-50.0 % Monocytes (%) (Auto) 8.4 0.0-12.0 % Eosinophils (%) (Auto) 1.4 0.0-7.0 % Basophils (%) (Auto) 1.1 0.0-2.0 % Neutrophils # (Auto) 5.0 1.6-8.6 10 ^3/uL Lymphocytes # (Auto) 2.4 0.4-5.4 10 ^3/uL Monocytes # (Auto) 0.7 0-1.3 10 ^3/uL Eosinophils # (Auto) 0.1 0-0.8 10 ^3/uL Basophils # (Auto) 0.1 0-0.2 10 ^3/uL Nucleated Red Blood Cells 0.0 % Sodium Level 142 136-145 mmol/L Potassium Level 3.7 3.5-5.1 mmol/L Chloride Level 107 98-107 mmol/L Carbon Dioxide Level 27 20-31 mmol/L Anion Gap 8 5-15 Blood Urea Nitrogen 11 9-23 mg/dL Creatinine 0.76 0.550-1.02 mg/dL Glomerular Filtration Rate Calc 82 >90 mL/min BUN/Creatinine Ratio 14.5 10.0-20.0 Serum Glucose 98 74-106 mg/dL Lactic Acid Level 0.9 0.4-2.0 mmol/L Calcium Level 10.3 8.7-10.4 mg/dL Magnesium Level 2.1 1.6-2.6 mg/dL Total Bilirubin 0.3 0.2-1.0 mg/dL Aspartate Amino Transferase (AST) 13 13-40 U/L Alanine Aminotransferase (ALT) 12 7-40 U/L Alkaline Phosphatase 133 H 46-116 U/L B-Type Natriuretic Peptide 70.21 0-100 pg/mL Total Protein 7.1 5.7-8.2 g/dL Albumin 4.6 3.2-4.8 g/dL [address] [address] Ph: [phone] DIAGNOSTIC IMAGING Diagnostic Imaging Report : [id number] Signed PATIENT: RORO SAVAGE ACCT: [id number] UNIT: [id number] : 1950 LOC: ER ROOM / BED: / AGE / SEX: 73 / F ADM STATUS: REG ER SERVICE 21 ORDERING PHYSICIAN: JOSE ANTONIO CUMMINGS DO PROCEDURE(s): HWOCT - HEAD WITHOUT CONTRAST REASON: gen weak ORDER NUMBER(s): [id number], ACCESSION NUMBER(s): [id number] EXAM: CT HEAD WITHOUT CONTRAST INDICATION: gen galdamez TECHNIQUE: CT of the head without intravenous contrast. Radiation Dose Information: CT Dose: CTDI volume is 54.23 mGy. Dose-length product is 960.24 mGy*cm The dose indicators for CT are the volume Computed Tomography (CT) Dose Index (CTDIvol) and the Dose Length Product (DLP), and are measured in units of mGy and mGy-cm, respectively. These indicators are not patient dose, but values generated from the CT scanner acquisition factors. The report includes radiation exposure data for exposures received during this examination. COMPARISON: None FINDINGS: There is no evidence of acute intracranial hemorrhage, extra-axial collection, mass effect, midline shift, herniation or hydrocephalus. The ventricles, sulci and cisterns are age appropriate. The armas-white differentiation is intact. The visualized paranasal sinuses and mastoid air cells are clear. The surrounding soft tissues and osseous structures are unremarkable. IMPRESSION: 1. No CT evidence of acute intracranial abnormality. HS:Y ATED BY: CAROLIN SERRANO DO DICTATED DATE/TIME: 02/01/241454 SIGNED BY: CAROLIN SERRANO DO SIGNED DATE/TIME: 02/01/241454 CC: [address] [address] Ph: [phone] DIAGNOSTIC IMAGING Diagnostic Imaging Report : [id number] Signed PATIENT: RORO SAVAGE ACCT: [id number] UNIT: [id number] : 1950 LOC: ER ROOM / BED: / AGE / SEX: 73 / F ADM STATUS: REG ER SERVICE 21 ORDERING PHYSICIAN: JOSE ANTONIO CUMMINGS DO PROCEDURE(s): CXRP - CHEST PORTABLE REASON: gen weak ORDER NUMBER(s): [id number], ACCESSION NUMBER(s): [id number] CHEST RADIOGRAPH Indication:gen rudolph Technique: Single frontal view of the chest was obtained Comparison: XY CHEST XRAY 1 VIEW on DOS: 06/21/23, CHEST XRAY 1 VIEW on DOS: 09/17/21, CXR1 on DOS: 09/17/21 FINDINGS: Lines and Tubes: None Lungs: No focal consolidation. Pleura: No effusion. No pneumothorax. Cardiomediastinal contours: Unremarkable Bones: No acute osseous abnormality. IMPRESSION: No acute cardiopulmonary disease. ATED BY: SAEID GIRON MD DICTATED DATE/TIME: 02/01/241446 SIGNED BY: SAEID GIRON MD SIGNED DATE/TIME: 02/01/241446 CC: Time of 1ST Reevaluation: 21:27 Reevaluation 1ST: Unchanged Patient Education/Counseling: Diagnosis, Treatment Family Education/Counseling: No Family Present Comments Patient presented with the above HPI.--generalized weakness/cardiac----workup was initiated. patient was found with the above mentioned diagnosis. Patient was given: Fluids and Rocephin for possible suspected UTI, Patient ED course and VS have been stabilized. Patient has been reassessed in the ED and remained in a stable condition. Orthostatics were obtained which were unremarkable. However patient feels significantly weak for at least one- week and feels that if she goes home she will come right back again to the ER. Pertinent incidental findings were discussed with the patient and/or family. Urinalysis is still pending. Patient/family voices understanding and is agreeable with plan. Patient has been observed in the ED adequate length of time to insure improvement/stability. patient was admitted to the medicine team for further evaluation and treatment of their presentation. All the reports of any imaging studies that were ordered by myself were reviewed by myself. Departure 1 Departure Time of Disposition: 20:21 Impression: Primary Impression: Generalized weakness Disposition: 09 ADMITTED INPATIENT Admit to: Tele Condition: Guarded Discharged With: Self Critical Care Note Critical Care Time?: No Heart Score Heart Score: Heart Score Response (Comments) Value History Slightly Suspicious 0 EKG Normal 0 Age >65 2 Risk Factors 1 or 2 risk factors 1 Troponin Normal limit 0 Total 3 I personally scribed for JOSE ANTONIO CUMMINGS DO (STEPHFARMI) on 02/01/24 at 14:17. Electronically submitted by Rodolfo Miguel ([facility] I personally scribed for JOSE ANTONIO CUMMINGS DO ([email or web address]) on 02/01/24 at 14:54. Electronically submitted by Rodolfo Miguel ([facility] I personally scribed for JOSE ANTONIO CUMMINGS DO ([email or web address]) on 02/01/24 at 15:53. Electronically submitted by Rodolfo Miguel ([facility]). JOSE ANTONIO CUMMINGS DO Feb 01, 2024 14:17
--- NOTE | 2024-02-01 14:50 | DVH ---
CHEST RADIOGRAPH Indication:gen weak Technique: Single frontal view of the chest was obtained Comparison: XY CHEST XRAY 1 VIEW on DOS: 06/21/23, CHEST XRAY 1 VIEW on DOS: 09/17/21, CXR1 on DOS: 2 FINDINGS: Lines and Tubes: None Lungs: No focal consolidation. Pleura: No effusion. No pneumothorax. Cardiomediastinal contours: Unremarkable Bones: No acute osseous abnormality. IMPRESSION: No acute cardiopulmonary disease.
--- NOTE | 2024-02-01 14:57 | DVH ---
EXAM: CT HEAD WITHOUT CONTRAST INDICATION: gen weak TECHNIQUE: CT of the head without intravenous contrast. Radiation Dose Information: CT Dose: CTDI volume is 54.23 mGy. Dose-length product is 960.24 mGy*cm The dose indicators for CT are the volume Computed Tomography (CT) Dose Index (CTDIvol) and the Dose Length Product (DLP), and are measured in units of mGy and mGy-cm, respectively. These indicators are not patient dose, but values generated from the CT scanner acquisition factors. The report includes radiation exposure data for exposures received during this examination. COMPARISON: None FINDINGS: There is no evidence of acute intracranial hemorrhage, extra-axial collection, mass effect, midline s hift, herniation or hydrocephalus. The ventricles, sulci and cisterns are age appropriate. The armas-white differentiation is intact. The visualized paranasal sinuses and mastoid air cells are clear. The surrounding soft tissues and osseous structures are unremarkable. IMPRESSION: 1. No CT evidence of acute intracranial abnormality. HS:Y
[2024-02-01 15:41] LABS: Basophils # (auto) 0.1 10 ^3/uL (0-0.2); Basophils % (auto) 1.1 % (0.0-2.0); Eosinophils # (auto) 0.1 10 ^3/uL (0-0.8); Eosinophils % (auto) 1.4 % (0.0-7.0); Hematocrit 36.1 % (36.0-46.0); Hemoglobin 12.3 g/dL (12.2-16.2); Lymphocytes # (auto) 2.4 10 ^3/uL (0.4-5.4); Lymphocytes % (auto) 29.1 % (10.0-50.0); Mean Corpuscular Hemoglobin 30.4 pg (28.0-32.0); Mean Corpuscular Volume 89.5 fL (80.0-100.0); Monocytes # (auto) 0.7 10 ^3/uL (0-1.3); Monocytes % (auto) 8.4 % (0.0-12.0); Platelet Count (auto) 296 10^3/uL (140-450); Red Blood Cells 4.04 10^6/uL (4.0-5.20); Red Cell Distribution Width 14.9 % (11.8-14.3); White Blood Cell 8.4 10^3/uL (4.4-10.8)
[2024-02-01 15:59] LABS: Alanine Aminotransferase 12 U/L (7-40); Albumin 4.6 g/dL (3.2-4.8); Alkaline Phosphatase 133 U/L (46-116); Anion Gap 8 (5-15); Aspartate Aminotransferase 13 U/L (13-40); BUN/Creatinine Ratio 14.5 (10.0-20.0); Bilirubin, Total 0.3 mg/dL (0.2-1.0); Blood Urea Nitrogen 11 mg/dL (9-23); Calcium 10.3 mg/dL (8.7-10.4); Carbon Dioxide 27 mmol/L (20-31); Chloride 107 mmol/L (98-107); Glucose 98 mg/dL (74-106); Magnesium 2.1 mg/dL (1.6-2.6); Potassium 3.7 mmol/L (3.5-5.1); Sodium 142 mmol/L (136-145); Total Protein 7.1 g/dL (5.7-8.2)
--- NOTE | 2024-02-01 19:04 | ECG ---
[facility] Test Date: 2024-02-01 Test Time: 16:30:15 Pat Name: RORO SAVAGE Department: ER Room: Gender: F Methods And Procedures Analyst: ARI : 1950 Requested By: JOSE ANTONIO CUMMINGS Order Number: [id number] Reading MD: Measurements Intervals Blanket Rate: 53 P: 63 MA: 185 QRS: 60 QRSD: 91 T: 6 QT: 433 QTc: 407 Interpretive Statements Sinus rhythm Borderline repolarization abnormality Please click the below link to view image of tracing.
[2024-02-01] MEDS ORDERED: NITROGLYCERIN 0.4 MG SL TAB SL PRN (20:30)
[2024-02-01] MEDS ORDERED: MORPHINE SULFATE INJ 2 MG/ml SYRG IV PRN (20:30)
--- NOTE | 2024-02-01 21:46 | DVHHPRES ---
History of Present Illness Resident Creating Document: PRINCE BARROS RESIDENT History of Present Illness This is a 73 years old female past medical history of hypotension, recurrent UTI, DVT, PE, anxiety disorder, diverticulitis with s/p laparotomy 2 times, constipation presented to the ED with a chief complaint of generalized weakness and low blood pressure. According to the patient she went to Dr. Hannah's office for routine checkup and they mentioned she has low blood pressure that needs to be seen by ER. The patient also mentioned that she has multiple recurrent fall in last 2 month and always felt weak and dizzy. She also complaint of headache since morning but not associated with blurring of vision or any weakness in any other parts of the body. The patient denies chest pain, shortness of breath, diaphoresis, abdominal pain, nausea, vomiting, dysuria or any blood in urine . PCP: Dr. Ramirez Past Medical History Hypotension, recurrent UTI, DVT, PE, diverticulitis, constipation Past Surgical History Laparotomy 2 times. Family History Family History is significant for CAD and cholangiocarcinoma Smoke: No ALCOHOL: none Drugs: None Lives: with Family Review of Systems Constitutional: Yes: Weakness; No: Fever, Chills, Sweats, Malaise, Other Eyes: No: Pain, Vision change, Conjunctivae inflammation, Eyelid inflammation, Other, Redness ENT: No: Ear pain, Ear discharge, Nose pain, Nose discharge, Nose congestion, Mouth pain, Mouth swelling, Throat pain, Throat swelling, Other Respiratory: No: Cough, Dry, Shortness of breath, SOB with excertion, Wheezing, Hemoptysis, Pleuritic Pain, Sputum, Wheezing, Other Cardiovascular: Lt Headedness; No: Chest Pain, Palpitations, Orthopnea, Paroxysmal Noc. Dyspnea, Edema, Other Gastrointestinal: No: Nausea, Vomiting, Abdominal Pain, Diarrhea, Constipation, Melena, Hematochezia, Other Genitourinary: No Dysuria, No Frequency, No Incontinence, No Hematuria, No Retention, No Other Musculoskeletal: No: other, neck pain, shoulder pain, arm pain, back pain, hand pain, leg pain, foot pain Skin: No: Rash, Lesions, Jaundice, Bruising, Other Neurological: No: Weakness, Numbness, Incoordination, Change in speech, Confusion, Seizures, Other Allergies: Coded Allergies: Codeine (Verified Allergy, Unknown, 05/15/20) Egg Yolk (Verified Allergy, Unknown, 08/06/17) Milk-related Compounds (Verified Allergy, Unknown, MILK ALLERGY, 08/20/19) Medications Current Medications Medications Dose Ordered Sig/Mishel Route Start Time Stop Time Status Last Admin Dose Admin Sodium Chloride 10 ml Q8HR IV 02/01/24 22:00 Acetaminophen/ Hydrocodone Bitart 1 tab Q4HP PRN PO 02/01/24 20:30 Ondansetron HCl 4 mg Q4HP PRN IV 02/01/24 20:30 Nitroglycerin 0.4 mg Q5MINP PRN SL 02/01/24 20:30 Morphine Sulfate 2 mg Q30M PRN IV 02/01/24 20:30 Ceftriaxone Sodium 50 ml @ 100 mls/hr DAILY@09 IV 02/02/24 09:00 Exam Vital Signs Vital Signs Date Time Temp Pulse Resp B/P (MAP) Pulse Ox O2 Delivery O2 Flow Rate FiO2 02/01/24 16:15 53 02/01/24 14:20 136/93 155/89 163/90 02/01/24 14:10 98.0 18 98 Exam Physical examination: General Appearance: Alert, Oriented X3, Cooperative, No acute distress HEENT: Atraumatic, PERRLA, EOMI, Mucous membrane moist/pink Respiratory: Clear to auscultation, Normal air movement Cardiovascular: Regular rate, Normal S1, Normal S2, No murmurs, no chest wall tenderness Abdominal: Normal bowel sounds, Soft, No tenderness, No hepatospenomegaly, No masses Extremities: No clubbing, No cyanosis, No edema, Normal pulses, No tenderness/swelling Skin: No rashes, No breakdown, No significant lesion Neuro: Normal gait, Normal speech, Strength at 5/5 X4 ext, Normal tone, Sensation intact, grossly intact cranial nerves. Psych/Mental Status: Mental status NL, Mood NL Labs/Xrays Labs Test 02/01/24 16:19 02/01/24 15:10 Range/Units Troponin I High Sensitivity < 3 L </=34 ng/L White Blood Count 8.4 4.4-10.8 10^3/uL Red Blood Count 4.04 4.0-5.20 10^6/uL Hemoglobin 12.3 12.2-16.2 g/dL Hematocrit 36.1 36.0-46.0 % Mean Corpuscular Volume 89.5 80.0-100.0 fL Mean Corpuscular Hemoglobin 30.4 28.0-32.0 pg Mean Corpuscular Hemoglobin Concent 34.0 32.0-36.0 g/dL Red Cell Distribution Width 14.9 H 11.8-14.3 % Platelet Count 296 140-450 10^3/uL Mean Platelet Volume 7.9 6.9-10.8 fL Neutrophils (%) (Auto) 60.0 37.0-80.0 % Lymphocytes (%) (Auto) 29.1 10.0-50.0 % Monocytes (%) (Auto) 8.4 0.0-12.0 % Eosinophils (%) (Auto) 1.4 0.0-7.0 % Basophils (%) (Auto) 1.1 0.0-2.0 % Neutrophils # (Auto) 5.0 1.6-8.6 10 ^3/uL Lymphocytes # (Auto) 2.4 0.4-5.4 10 ^3/uL Monocytes # (Auto) 0.7 0-1.3 10 ^3/uL Eosinophils # (Auto) 0.1 0-0.8 10 ^3/uL Basophils # (Auto) 0.1 0-0.2 10 ^3/uL Nucleated Red Blood Cells 0.0 % Sodium Level 142 136-145 mmol/L Potassium Level 3.7 3.5-5.1 mmol/L Chloride Level 107 98-107 mmol/L Carbon Dioxide Level 27 20-31 mmol/L Anion Gap 8 5-15 Blood Urea Nitrogen 11 9-23 mg/dL Creatinine 0.76 0.550-1.02 mg/dL Glomerular Filtration Rate Calc 82 >90 mL/min BUN/Creatinine Ratio 14.5 10.0-20.0 Serum Glucose 98 74-106 mg/dL Lactic Acid Level 0.9 0.4-2.0 mmol/L Calcium Level 10.3 8.7-10.4 mg/dL Magnesium Level 2.1 1.6-2.6 mg/dL Total Bilirubin 0.3 0.2-1.0 mg/dL Aspartate Amino Transferase (AST) 13 13-40 U/L Alanine Aminotransferase (ALT) 12 7-40 U/L Alkaline Phosphatase 133 H 46-116 U/L B-Type Natriuretic Peptide 70.21 0-100 pg/mL Total Protein 7.1 5.7-8.2 g/dL Albumin 4.6 3.2-4.8 g/dL Assessment/Plan Assessment/Plan Assessment and Plan: # Recurrent 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 # Chronic hypothyroidism - Levothyroxine 25 mcg p.o. daily # Prediabetic, HbA1C 5.8 - Counseled patient regarding healthy low carb diet, lifestyle modification and physical exercise. # Acute complicated cystitis - UA revealed hematuria and bacteriuria without pyuria - Ordered urine bacterial culture. - Ceftriaxone 1 g IV daily # Chronic anxiety/depression - Continue sertraline 25 mg p.o. daily Goal of care discussed with the patient for more than 20 minutes full code Plan of treatment discussed with Dr. Stokes Plan discussed with: Patient, Other My Orders Orders - PRINCE BARROS RESIDENT Procedure Category Date Status Time Admit ADMIT 02/01/24 Transmitted 20:30 Allergies MARKOS 02/01/24 In Process 20:30 Code Status CODE 02/01/24 Transmitted 20:30 Sodium Chloride Lock PHA 02/01/24 In Process (Saline Lock Ns) 22:00 Oxygen Per Hour RT 02/01/24 Transmitted 20:30 Hydrocodone-Acet PHA 02/01/24 In Process 5/325mg Tab ([place] 20:30 Ondansetron Hcl PHA 02/01/24 In Process (Zofran) 20:30 Complete Blood Count LAB 02/02/24 Verified 04:00 Comprehensive LAB 02/02/24 Verified Metabolic Panel 04:00 Pt Request For Service PT 02/01/24 Logged 20:30 Nitroglycerin PHA 02/01/24 In Process Sublingual (Ntrostat 20:30 Morphine Sulfate PHA 02/01/24 In Process Injection 20:30 Oxygen By Nasal RT 02/01/24 Transmitted Cannula 20:30 Stat Ekg For Chest MARKOS 02/01/24 In Process Pain 20:30 Notify Of Changes MARKOS 02/01/24 In Process From Base 20:30 Charter Driver For [facility] 02/01/24 In Process 24 Hours 20:30 Emergency Dysrhythmia [facility] 02/01/24 In Process Protocol 20:30 Rhythm Strips Once [facility] 02/01/24 In Process Every Shift 20:30 Date of Service: Feb 01, 2024 Billing Provider: NILS STOKES MD Common Visit Codes: [id number] INP/OBS CARE (HIGH) Secondary Visit Codes: [id number] CARE PLAN 30 MINUTES EVYSARA FONSECAPRINCE RESIDENT Feb 01, 2024 21:46 NILS STOKES MD Feb 02, 2024 17:38
[2024-02-01] MEDS: OXYBUTYNIN CHL 5 MG TAB PO SCH (22:00)
[2024-02-01] MEDS: SUCRALFATE 1 GM TAB PO SCH (22:25)
[2024-02-01] MEDS: GABAPENTIN 100 MG CAP PO SCH (22:25)
[2024-02-01] MEDS: HYDROcodone-ACET 5/325MG TAB PO PRN (22:34)
[2024-02-01 22:37] LABS: Urine Bacteria FEW /hpf (None Seen); Urine Blood TRACE /uL (Negative); Urine Clarity Clear (Clear); Urine Color Light-Yellow (Yellow); Urine Mucus FEW (None Seen); Urine Protein, UAD Negative (Negative); Urine Specific Gravity 1.015 (1.001-1.035); Urine Urobilinogen Normal (Negative); Urine WBC 7 /hpf (0 - 5); Urine pH 8.5 (5.0-9.0)
[2024-02-01] MEDS ORDERED: hydrALAZINE HCL 20 MG/ML VL IV PRN (22:45)
[2024-02-01] MEDS: SODIUM CHLOR 0.9% PF (SALINE LOCK) 10ML VIAL/SYR IV SCH (23:51)
[2024-02-01] MEDS: SODIUM CHLORIDE 0.9% 500 ML IV ONE (23:58)
[2024-02-02] VITALS (10 sets, daily range): BP systolic 104–129; BP diastolic 43–76; PULSE 53–70; RESP 16–18; TEMP 97.4–98.5; O2SAT 90–97
[2024-02-02] MEDS: LEVOTHYROXINE SODIUM 25 MCG TAB PO SCH (06:16)
--- NOTE | 2024-02-02 06:28 | ECG ---
[facility] Test Date: 2024-02-01 Test Time: 14:10:08 Pat Name: RORO SAVAGE Department: ED Room: 0295 Gender: F Soldering Machine Tender: MIKE : 1950 Requested By: JOSE ANTONIO CUMMINGS Order Number: [id number] Reading MD: Measurements Intervals [place] Rate: 64 P: 71 HI: 182 QRS: 81 QRSD: 91 T: 34 QT: 411 QTc: 424 Interpretive Statements Sinus rhythm Borderline right axis deviation Please click the below link to view image of tracing.
[2024-02-02] MEDS: SERTRALINE HCL 50 MG TAB PO SCH (06:43)
[2024-02-02] MEDS: APIXABAN 5 MG TAB PO SCH (09:56)
[2024-02-02] MEDS: cefTRIAXone 1GM/50ML D5W 50 ML IV SCH (09:59)
[2024-02-02] MEDS ORDERED: PATIENTS OWN MEDICATION (Simvastatin 20 MG) PO SCH (10:00)
[2024-02-02] MEDS ORDERED: SERTRALINE HCL 50 MG TAB PO SCH (10:00)
[2024-02-02] MEDS ORDERED: PATIENTS OWN MEDICATION (Sertraline Hcl 1 TAB) PO SCH (10:00)
[2024-02-02 11:36] LABS: Basophils # (auto) 0.1 10 ^3/uL (0-0.2); Basophils % (auto) 1.1 % (0.0-2.0); Eosinophils # (auto) 0.1 10 ^3/uL (0-0.8); Eosinophils % (auto) 1.4 % (0.0-7.0); Hematocrit 37.6 % (36.0-46.0); Hemoglobin 12.8 g/dL (12.2-16.2); Lymphocytes # (auto) 2.3 10 ^3/uL (0.4-5.4); Lymphocytes % (auto) 31.4 % (10.0-50.0); Mean Corpuscular Hemoglobin 30.3 pg (28.0-32.0); Mean Corpuscular Hgb Conc. 33.9 g/dL (32.0-36.0); Mean Corpuscular Volume 89.4 fL (80.0-100.0); Monocytes # (auto) 0.6 10 ^3/uL (0-1.3); Monocytes % (auto) 8.5 % (0.0-12.0); Neutrophils # (auto) 4.3 10 ^3/uL (1.6-8.6); Neutrophils % (auto) 57.6 % (37.0-80.0); Nucleated Red Blood Cells % 0.1 %; Platelet Count (auto) 299 10^3/uL (140-450); Red Blood Cells 4.21 10^6/uL (4.0-5.20); Red Cell Distribution Width 14.6 % (11.8-14.3); White Blood Cell 7.4 10^3/uL (4.4-10.8)
[2024-02-02 11:51] LABS: Alanine Aminotransferase 11 U/L (7-40); Albumin 4.2 g/dL (3.2-4.8); Alkaline Phosphatase 124 U/L (46-116); Anion Gap 11 (5-15); Aspartate Aminotransferase 8 U/L (13-40); BUN/Creatinine Ratio 16.4 (10.0-20.0); Blood Urea Nitrogen 12 mg/dL (9-23); Calcium 9.7 mg/dL (8.7-10.4); Carbon Dioxide 24 mmol/L (20-31); Chloride 110 mmol/L (98-107); Glucose 106 mg/dL (74-106); Potassium 3.3 mmol/L (3.5-5.1); Sodium 145 mmol/L (136-145)
[2024-02-02 11:52] LABS: Bilirubin, Total 0.4 mg/dL (0.2-1.0); Total Protein 6.6 g/dL (5.7-8.2)
[2024-02-02 14:02] LABS: Urine WBC None Seen /hpf (0 - 5)
[2024-02-02 14:10] LABS: Urine Bacteria FEW /hpf (None Seen); Urine Blood Negative /uL (Negative); Urine Protein, UAD Negative (Negative); Urine Specific Gravity 1.006 (1.001-1.035); Urine Urobilinogen Normal (Negative)
[2024-02-02 14:17] LABS: Urine Clarity Clear (Clear); Urine Color Light-Yellow (Yellow)
--- NOTE | 2024-02-02 15:55 | DVHPNRES ---
Progress Note Date Seen: Feb 02, 2024 Resident Creating Document: ISHAN RIOJAS RESIDENT Has the PT tested + for MRSA If YES, has PT been informed?: No Medical Necessity Reason Pt with a Central, PICC or Fol: No Subjective Review of Systems This is a 73 years old female past medical history of hypotension, recurrent UTI, DVT, PE, anxiety disorder, diverticulitis with s/p laparotomy 2 times, constipation presented to the ED with a chief complaint of generalized weakness and low blood pressure. Per patient, she was at Dr. Gould office and she had low blood pressure and was feeling generalized weakness and fatigue. Upon admission, the patient also mentioned that she has multiple recurrent fall in last 2 month and always felt weak and dizzy. The patient denied chest pain, shortness of breath, diaphoresis, abdominal pain, nausea, vomiting, dysuria or any blood in urine. Initial labs CBC and CMP were grossly unremarkable, urinalysis came back positive for UTI, troponins were negative and BNP was normal range. Lactic acid came on normal range at 0.9. EKG was reviewed and was showing normal sinus rhythm with no ST segment elevation or depression. TSH was normal range at 3.37 and vitamin-D levels were normal. Initial CT scan of the head showed no evidence of acute intracranial abnormalities and chest x-ray was grossly unremarkable as well. Patient was admitted for further assessment and management. Patient seen and examined at bedside. Patient states that feels generalized weakness and fatigue very minimal dizziness but is walking with physical therapy without complications. The patient denies shortness of breath, chest pain, fever or any other symptoms at this time. Blood pressure has been in the lower side but stable. We will continue the patient on apixaban 5 mg b.i.d. for history of recurrent DVT and PE. Continue IV ceftriaxone for UTI and we will continue waiting for urine culture. Continue rest of home medications. ROS Constitutional: Reports gen weakness and fatigue. Denies weight loss, fever and chills. HEENT: Denies changes in vision and hearing. Respiratory: Denies shortness of breath and cough Cardiovascular: Denies chest discomfort or palpitations GI: Denies abdominal pain, nausea, vomiting and diarrhea. : Denies dysuria and urinary frequency. Musculoskeletal: Denies myalgias and joint pain Skin: Denies rash and pruritus. Neurological: Denies dizziness, headache, vision or hearing problems Objective vital signs Vital Sign Date Time Temp Pulse Resp B/P (MAP) Pulse Ox O2 Delivery O2 Flow Rate FiO2 02/02/24 13:00 98.0 54 17 115/48 (70) 97 98.0 02/02/24 08:00 Room Air* 0 21 Total Intake and Output 02/01/24 02/01/24 02/02/24 15:00 23:00 07:00 Intake Total 1050 ml Balance 1050 ml medications Current Medications Medications Dose Ordered Sig/Mishel Route Start Time Stop Time Status Last Admin Dose Admin Sodium Chloride 10 ml Q8HR IV 02/01/24 22:00 02/02/24 14:14 10 ML Acetaminophen/ Hydrocodone Bitart 1 tab Q4HP PRN PO 02/01/24 20:30 02/01/24 22:34 1 TAB Ondansetron HCl 4 mg Q4HP PRN IV 02/01/24 20:30 Nitroglycerin 0.4 mg Q5MINP PRN SL 02/01/24 20:30 Morphine Sulfate 2 mg Q30M PRN IV 02/01/24 20:30 Ceftriaxone Sodium 50 ml @ 100 mls/hr DAILY@09 IV 02/02/24 09:00 02/02/24 09:59 100 MLS/HR Gabapentin 100 mg TID PO 02/01/24 22:00 02/02/24 06:16 100 MG Levothyroxine Sodium 25 mcg DAILY@0630 PO 02/02/24 06:30 02/02/24 06:16 25 MCG Oxybutynin Chloride 5 mg BID PO 02/01/24 22:00 Apixaban 5 mg BID PO 02/02/24 10:00 02/02/24 09:56 5 MG Atorvastatin Calcium 10 mg HS PO 02/02/24 22:00 Hydralazine HCl 10 mg Q6HP PRN IV 02/01/24 22:45 Sertraline HCl 25 mg DAILY PO 02/02/24 04:45 02/02/24 09:56 25 MG Examination Physical Examination General: Patient alert and oriented in person, place and time. Patient following commands. HEENT: Normocephalic, atraumatic, moist mucous membranes Respiratory/pulmonary: Clear lungs bilaterally, no associated crackles or wheezes. Cardiovascular: Normal heart sounds S1 and S2 with no associated murmurs Abdomen: Abdomen nondistended, there is no pain to palpation in any of the abdominal quadrants, no palpable masses. Extremities: There is no peripheral edema present at the lower extremities. Peripheral Pulses: 3+ Radial (R). 3+ Radial (L). 3+ Dorsalis pedis (R). 3+ Dorsalis pedis(L) Skin: No rashes or pruritus, there is no sacral edema present at this time. Neurological: Intact cranial nerves with no focal neurologic deficits laboratory and microbiology Laboratory Tests 02/02/24 11:13 Test 02/02/24 11:13 Range/Units Serum Glucose 106 74-106 mg/dL Problem List/Assessment/Plan Problem List/Assessment/Plan Assessment/Plan Acute hypoxic respiratory distress ruled out PE -chest x-ray was grossly unremarkable without evidence of consolidations -D-dimer was normal range -currently on room air saturating 97% Hypotension likely due to UTI without sepsis -no fever, WBC on normal range 8.4, lactic acid normal, no tachycardia -urinalysis came positive for UTI -continue IV ceftriaxone -awaiting urine culture Acute cystitis -urinalysis came positive for UTI -continue IV ceftriaxone Generalized weakness and dizziness due to hypotension -CT of the head showed no evidence of acute intracranial abnormalities -chest x-ray came back grossly unremarkable -TSH is 3.37 -EKG showed sinus rhythm without evidence of ST segment elevation or depression. -D-dimer was normal range -echocardiogram showed an LVEF of 55% on 10/24/2023 -BNP was 70.21 Hypothyroidism -TSH and normal range at 3.37 -ordered free T4 -continue levothyroxine 25 mcg q.a.m. Prediabetes -hemoglobin A1c is 5.8% -no need for medications at this time, consult the patient on low-carbohydrate diet and lifestyle modifications History of DVT/PE -continue on apixaban 5 mg b.i.d. History of anxiety/depression -continue sertraline 25 mg p.o. q.d. Goals of care discussed with the patient at bedside for > 23min, FULL CODE Plan discussed with Dr. King Plan discussed with: Patient Date of Service: Feb 02, 2024 Billing Provider: YUDY KING MD Common Visit Codes: [id number] INP/OBS CARE(HIGH) Secondary Visit Codes: 93624-[id number] CARE PLAN 30 MINUTES ISHAN RIOJAS RESIDENT Feb 02, 2024 15:55 YUDY KING MD Feb 03, 2024 11:39
[2024-02-02] MEDS: ATORVASTATIN 20 MG TAB PO SCH (20:44)
[2024-02-03] MEDS: ONDANSETRON HCL 4 MG/2 ML VIAL IV PRN (04:57)
[2024-02-03 05:35] VITALS: BP 119/56; PULSE 64; RESP 18; TEMP 98; O2SAT 95
[2024-02-03 06:48] LABS: Basophils # (auto) 0.1 10 ^3/uL (0-0.2); Eosinophils # (auto) 0.1 10 ^3/uL (0-0.8); Eosinophils % (auto) 1.6 % (0.0-7.0); Hematocrit 36.9 % (36.0-46.0); Hemoglobin 12.5 g/dL (12.2-16.2); Lymphocytes # (auto) 1.6 10 ^3/uL (0.4-5.4); Lymphocytes % (auto) 22.2 % (10.0-50.0); Mean Corpuscular Hemoglobin 30.4 pg (28.0-32.0); Mean Corpuscular Hgb Conc. 33.9 g/dL (32.0-36.0); Mean Corpuscular Volume 89.5 fL (80.0-100.0); Monocytes # (auto) 0.7 10 ^3/uL (0-1.3); Monocytes % (auto) 8.9 % (0.0-12.0); Neutrophils # (auto) 4.9 10 ^3/uL (1.6-8.6); Neutrophils % (auto) 66.3 % (37.0-80.0); Platelet Count (auto) 281 10^3/uL (140-450); Red Blood Cells 4.12 10^6/uL (4.0-5.20); Red Cell Distribution Width 14.7 % (11.8-14.3); White Blood Cell 7.4 10^3/uL (4.4-10.8)
[2024-02-03 07:05] LABS: Alanine Aminotransferase 11 U/L (7-40); Albumin 4.2 g/dL (3.2-4.8); Alkaline Phosphatase 122 U/L (46-116); Anion Gap 11 (5-15); Aspartate Aminotransferase 12 U/L (13-40); BUN/Creatinine Ratio 15.2 (10.0-20.0); Bilirubin, Total 0.4 mg/dL (0.2-1.0); Blood Urea Nitrogen 10 mg/dL (9-23); Calcium 9.8 mg/dL (8.7-10.4); Carbon Dioxide 24 mmol/L (20-31); Chloride 109 mmol/L (98-107); Glucose 94 mg/dL (74-106); Potassium 3.5 mmol/L (3.5-5.1); Sodium 144 mmol/L (136-145); Total Protein 6.6 g/dL (5.7-8.2)
[2024-02-03 08:00] VITALS: BP 101/46; PULSE 60; PULSE 63; PULSE 65; RESP 12; RESP 18; TEMP 97.5; O2SAT 94; O2SAT 97
[2024-02-03 12:34] VITALS: BP 113/68; PULSE 60; RESP 16; TEMP 98.7; O2SAT 98
[2024-02-03] MEDS ORDERED: NITR-52 PO (16:29)
--- NOTE | 2024-02-03 16:38 | DVHDSRES ---
Discharge Summary Date of Admission Resident Creating Document: ISHAN RIOJAS RESIDENT Feb 01, 2024 at 20:30 Date of Discharge: Feb 03, 2024 Admitting Diagnosis Generalized weakness and hypotension Wounds: No wounds present at this time. Labs/Diagnostic Data: Laboratory Results Test 02/03/24 06:26 02/02/24 11:13 02/02/24 10:24 02/01/24 21:29 White Blood Count 7.4 10^3/uL (4.4-10.8) Red Blood Count 4.12 10^6/uL (4.0-5.20) Hemoglobin 12.5 g/dL (12.2-16.2) Hematocrit 36.9 % (36.0-46.0) Mean Corpuscular Volume 89.5 fL (80.0-100.0) Mean Corpuscular Hemoglobin 30.4 pg (28.0-32.0) Mean Corpuscular Hemoglobin Concent 33.9 g/dL (32.0-36.0) Red Cell Distribution Width 14.7 % (11.8-14.3) Platelet Count 281 10^3/uL (140-450) Mean Platelet Volume 7.6 fL (6.9-10.8) Neutrophils (%) (Auto) 66.3 % (37.0-80.0) Lymphocytes (%) (Auto) 22.2 % (10.0-50.0) Monocytes (%) (Auto) 8.9 % (0.0-12.0) Eosinophils (%) (Auto) 1.6 % (0.0-7.0) Basophils (%) (Auto) 1.0 % (0.0-2.0) Neutrophils # (Auto) 4.9 10 ^3/uL (1.6-8.6) Lymphocytes # (Auto) 1.6 10 ^3/uL (0.4-5.4) Monocytes # (Auto) 0.7 10 ^3/uL (0-1.3) Eosinophils # (Auto) 0.1 10 ^3/uL (0-0.8) Basophils # (Auto) 0.1 10 ^3/uL (0-0.2) Nucleated Red Blood Cells 0.0 % Sodium Level 144 mmol/L (136-145) Potassium Level 3.5 mmol/L (3.5-5.1) Chloride Level 109 mmol/L (98-107) Carbon Dioxide Level 24 mmol/L (20-31) Anion Gap 11 (5-15) Blood Urea Nitrogen 10 mg/dL (9-23) Creatinine 0.66 mg/dL (0.550-1.02) Glomerular Filtration Rate Calc 92 mL/min (>90) BUN/Creatinine Ratio 15.2 (10.0-20.0) Serum Glucose 94 mg/dL (74-106) Calcium Level 9.8 mg/dL (8.7-10.4) Total Bilirubin 0.4 mg/dL (0.2-1.0) Aspartate Amino Transferase (AST) 12 U/L (13-40) Alanine Aminotransferase (ALT) 11 U/L (7-40) Alkaline Phosphatase 122 U/L (46-116) Total Protein 6.6 g/dL (5.7-8.2) Albumin 4.2 g/dL (3.2-4.8) D-Dimer, Quantitative 0.36 mg/L FEU (0.0-0.49) Free Thyroxine (T4) Calculated 1.14 ng/dL (0.89-1.76) Urine Color Light-yellow (Yellow) Urine Clarity Clear (Clear) Urine pH 7.0 (5.0-9.0) Urine Specific Lane 1.006 (1.001-1.035) Urine Protein Negative (Negative) Urine Ketones Negative (Negative) Urine Blood Negative /uL (Negative) Urine Nitrite Negative (Negative) Urine Bilirubin Negative (Negative) Urine Urobilinogen Normal mg/dL (Negative) Urine Leukocyte Esterase Negative /uL (Negative) Urine RBC None seen /hpf (0 - 4) Urine WBC None seen /hpf (0 - 5) Urine Squamous Epithelial Cells Few /hpf (<5) Urine Bacteria Few /hpf (None Seen) Urine Glucose Normal mg/dL (Normal) Urine Mucus Few (None Seen) Test 02/01/24 16:19 02/01/24 15:10 Troponin I High Sensitivity < 3 ng/L (</=34) Hemoglobin A1c 5.8 % A1C (<5.7) Lactic Acid Level 0.9 mmol/L (0.4-2.0) Magnesium Level 2.1 mg/dL (1.6-2.6) B-Type Natriuretic Peptide 70.21 pg/mL (0-100) Vitamin B12 Level 409 pg/mL (211-911) Vitamin D 25-Hydroxy 37.5 ng/mL (30.0-100) Thyroid Stimulating Hormone (TSH) 3.37 uIU/mL (0.55-4.78) Other Laboratory Tests 02/03/24 06:26 Brief Hx & Hospital Course: This is a 73 years old female past medical history of hypotension, recurrent UTI, DVT, PE, anxiety disorder, diverticulitis with s/p laparotomy 2 times, constipation presented to the ED with a chief complaint of generalized weakness and low blood pressure. Per patient, she was at Dr. Gould office and she had low blood pressure and was feeling generalized weakness and fatigue. Upon admission, the patient also mentioned that she has multiple recurrent fall in last 2 month and always felt weak and dizzy. The patient denied chest pain, shortness of breath, diaphoresis, abdominal pain, nausea, vomiting, dysuria or any blood in urine. Initial labs CBC and CMP were grossly unremarkable, urinalysis came back positive for UTI, troponins were negative and BNP was normal range. Lactic acid came on normal range at 0.9. EKG was reviewed and was showing normal sinus rhythm with no ST segment elevation or depression. TSH was normal range at 3.37 and vitamin-D levels were normal. Initial chest x-ray was showing in no acute consolidations. Initial CT scan of the head showed no evidence of acute intracranial abnormalities and chest x-ray was grossly unremarkable as well. Patient was initially started on IV ceftriaxone. Home meds were resumed which were apixaban 5 mg b.i.d. for chronic DVT and PE, levothyroxine 25 mcg q.a.m., atorvastatin 10 mg q.d., sertraline 25 mg q.d., gabapentin 100 mg t.i.d. Urine culture came back negative for which we will discharge the patient on nitrofurantoin 100 mg b.i.d. for seven days. Patient agrees and understands the plan. ROS Constitutional: Denies weight loss, fever and chills. HEENT: Denies changes in vision and hearing. Respiratory: Denies shortness of breath and cough Cardiovascular: Denies chest discomfort or palpitations GI: Denies abdominal pain, nausea, vomiting and diarrhea. : Denies dysuria and urinary frequency. Musculoskeletal: Denies myalgias and joint pain Skin: Denies rash and pruritus. Neurological: Denies dizziness, headache, vision or hearing problems Physical Examination General: Patient alert and oriented in person, place and time. Patient following commands. HEENT: Normocephalic, atraumatic, moist mucous membranes Respiratory/pulmonary: Clear lungs bilaterally, no associated crackles or wheezes. Cardiovascular: Normal heart sounds S1 and S2 with no associated murmurs Abdomen: Abdomen nondistended, there is no pain to palpation in any of the abdominal quadrants, no palpable masses. Extremities: There is no peripheral edema present at the lower extremities. Peripheral Pulses: 3+ Radial (R). 3+ Radial (L). 3+ Dorsalis pedis (R). 3+ Dorsalis pedis(L) Skin: No rashes or pruritus, there is no sacral edema present at this time. Neurological: Intact cranial nerves with no focal neurologic deficits Consults/Reason for consult N/A Operations or Procedures CHEST RADIOGRAPH Indication:gen weak Technique: Single frontal view of the chest was obtained Comparison: XY CHEST XRAY 1 VIEW on DOS: 06/21/23, CHEST XRAY 1 VIEW on DOS: 09/17/21, CXR1 on DOS: 09/17/21 FINDINGS: Lines and Tubes: None Lungs: No focal consolidation. Pleura: No effusion. No pneumothorax. Cardiomediastinal contours: Unremarkable Bones: No acute osseous abnormality. IMPRESSION: No acute cardiopulmonary disease. EXAM: CT HEAD WITHOUT CONTRAST INDICATION: gen weak TECHNIQUE: CT of the head without intravenous contrast. Radiation Dose Information: CT Dose: CTDI volume is 54.23 mGy. Dose-length product is 960.24 mGy*cm The dose indicators for CT are the volume Computed Tomography (CT) Dose Index (CTDIvol) and the Dose Length Product (DLP), and are measured in units of mGy and mGy-cm, respectively. These indicators are not patient dose, but values generated from the CT scanner acquisition factors. The report includes radiation exposure data for exposures received during this examination. COMPARISON: None FINDINGS: There is no evidence of acute intracranial hemorrhage, extra-axial collection, mass effect, midline shift, herniation or hydrocephalus. The ventricles, sulci and cisterns are age appropriate. The armas-white differentiation is intact. The visualized paranasal sinuses and mastoid air cells are clear. The surrounding soft tissues and osseous structures are unremarkable. IMPRESSION: 1. No CT evidence of acute intracranial abnormality. Condition at Discharge: Good Final Diagnosis/Problems List Acute hypoxic respiratory distress ruled out PE Hypotension likely due to UTI without sepsis Acute cystitis Generalized weakness and dizziness due to hypotension Hypothyroidism Prediabetes History of DVT/PE History of anxiety/depression Discharge Disposition: Home Discharge Instruct/Medications Diet: Regular Activity: No Restrictions, As Tolerated Follow Up/Referral: F/U with her PCP in 1 week Medications: Nitrofurantoin 100 mg b.i.d. for 7 days Discharge Statement: "Patient was advised to return to the ER or call 911 if any headaches, dizziness, shortness of breath, chest pain, abdominal pain, bleeding, fevers, or worsening of medical condition. Patient was counseled about treatment plan, medications, possible side effects, patientverbalized understanding. All questions were answered to the best of my ability. This discharge took greater then 30 minutes in planning, reviewing documentation, counseling the patient, and discussing with other team members." ASSESSMENT ASSESSMENT Assessment Acute hypoxic respiratory distress ruled out PE Hypotension likely due to UTI without sepsis Acute cystitis Generalized weakness and dizziness due to hypotension Hypothyroidism Prediabetes History of DVT/PE History of anxiety/depression ISHAN RIOJAS RESIDENT Feb 03, 2024 16:38
[2024-02-03 16:56] VITALS: BP 116/54; PULSE 62; RESP 12; TEMP 98.1; O2SAT 95
[2024-02-03] MEDS: HYDROcodone-ACET 5/325MG TAB PO ONE (18:54)
[2024-02-03 20:00] VITALS: PULSE 67; RESP 17; O2SAT 9
[2024-02-03 21:00] VITALS: BP 113/52; PULSE 64; RESP 18; TEMP 97.6; O2SAT 92
[2024-02-04] VITALS (8 sets, daily range): BP systolic 105–126; BP diastolic 40–67; PULSE 52–76; RESP 14–19; TEMP 97.3–98; O2SAT 9–98
--- NOTE | 2024-02-04 13:05 | DVHPNRES ---
Progress Note Date Seen: Feb 04, 2024 Resident Creating Document: PILAR CAAL RESIDENT Has the PT tested + for MRSA If YES, has PT been informed?: No Medical Necessity Reason Pt with a Central, PICC or Fol: No Subjective Review of Systems Patient overall does better, no acute urinary symptoms, mildly anxious. Patient reports: No new complaints, Feels better Review of Systems: HEENT:Normal, CVS:Normal, RESPIRATORY:Normal, GI:Normal, :Abnormal (Mild incontinence), MSK:Normal, NEURO:Normal, Deferred Objective vital signs Vital Sign Date Time Temp Pulse Resp B/P (MAP) Pulse Ox O2 Delivery O2 Flow Rate FiO2 02/04/24 09:00 97.3 57 14 108/40 (62) 98 97.3 02/04/24 08:15 Room Air* 0 21 Total Intake and Output 02/03/24 02/03/24 02/04/24 15:00 23:00 07:00 Intake Total 650 ml 650 ml 500 ml Balance 650 ml 650 ml 500 ml medications Current Medications Medications Dose Ordered Sig/Mishel Route Start Time Stop Time Status Last Admin Dose Admin Sodium Chloride 10 ml Q8HR IV 02/01/24 22:00 02/04/24 06:21 10 ML Ceftriaxone Sodium 50 ml @ 100 mls/hr DAILY@09 IV 02/02/24 09:00 02/04/24 09:23 100 MLS/HR Gabapentin 100 mg TID PO 02/01/24 22:00 02/04/24 06:21 100 MG Levothyroxine Sodium 25 mcg DAILY@0630 PO 02/02/24 06:30 02/04/24 06:21 25 MCG Oxybutynin Chloride 5 mg BID PO 02/01/24 22:00 02/04/24 09:23 5 MG Apixaban 5 mg BID PO 02/02/24 10:00 02/04/24 09:24 5 MG Atorvastatin Calcium 10 mg HS PO 02/02/24 22:00 02/03/24 21:08 10 MG Sertraline HCl 25 mg DAILY PO 02/02/24 04:45 02/04/24 09:23 25 MG Examination: GENERAL:Normal, HEENT:Normal, NECK:Normal, LUNGS:Normal, CVS:Normal, ABDOMEN:Normal (negative for CV angle tenderness on suprapubic to tenderness), MSK:Normal, SKIN:Normal, NEURO:Normal, :Normal laboratory and microbiology Laboratory Tests 02/03/24 06:26 Test 02/03/24 06:26 Range/Units Serum Glucose 94 74-106 mg/dL Microbiology Date/Time Source Procedure Growth Status 02/02/24 10:24 Voided Urine Urine Culture - Final Complete Labs and/or images reviewed: Labs reviewed by me, Image(s) reviewed by me Problem List/Assessment/Plan Problem List/Assessment/Plan Hospital Course: A 73-year-old female with a history of hypotension, recurrent UTIs, DVT, PE, anxiety disorder, diverticulitis with two laparotomies, and constipation presented with generalized weakness and low blood pressure. She reported feeling weak and dizzy with multiple falls over the past two months. She denied chest pain, shortness of breath, and other acute symptoms. Initial labs were unremarkable except for a positive urinalysis for UTI. Imaging showed no acute abnormalities. She was started on IV ceftriaxone, and her home medications were resumed. She will be discharged on nitrofurantoin for seven days. The patient understands and agrees with the plan. # Recurrent fall likely due to autonomic imbalance: CT head revealed no acute intracranial abnormality, Orthostatic vital negative,Echo on 11/10 revealed ejection fraction 55% with grade 1 diastolic abnormality # Acute hypoxic respiratory distress ruled out PE # Hypotension likely due to UTI without sepsis # Acute cystitis: UA revealed hematuria and bacteriuria without pyuria, Ordered urine bacterial culture. Ceftriaxone 1 g IV daily> changed to oral keflex 500 bid. >100,000 CFU/mL Mixed Gram Positive Lori Approximately 80,000 CFU Beta- Hemolytic Group B Streptococcus, # Generalized weakness and dizziness due to hypotension, improved # Hypothyroidism: Levothyroxine 25 mcg p.o. daily # Prediabetes: HbA1C 5.8 Counseled patient regarding healthy low carb diet, lifestyle modification and physical exercise. # History of DVT/PE: Continue Eliquis 5 mg b.i.d. # History of anxiety/depression: Continue sertraline 25 mg p.o. daily # Grade 1 obesity: BMI of 30.5 PCP:: Dr. Ramirez Barriers to discharge: Likely tomorrow discharge, patient lives at home with family. Case discussed with Dr. Sheehan Code status: Full code. Complex patient care discussion needed total 39 minutes. Plan discussed with: Patient, Other (Primary team, RN) PILAR CAAL RESIDENT Feb 04, 2024 13:05
[2024-02-04] MEDS: DOCUSATE SOD 100 MG CAP PO PRN (16:49)
[2024-02-04] MEDS: ACETAMINOPHEN 325 MG TAB PO PRN (16:50)
[2024-02-04] MEDS: CEPHALEXIN 250 MG CAP PO SCH (21:23)
[2024-02-05 05:00] VITALS: BP 127/48; PULSE 80; RESP 19; TEMP 97.9; O2SAT 96
[2024-02-05 08:00] VITALS: BP 115/46; PULSE 57; RESP 18; TEMP 97.8; O2SAT 91
[2024-02-05 08:15] VITALS: PULSE 51
[2024-02-05 11:13] LABS: Basophils # (auto) 0.1 10 ^3/uL (0-0.2); Basophils % (auto) 0.8 % (0.0-2.0); Eosinophils # (auto) 0.1 10 ^3/uL (0-0.8); Eosinophils % (auto) 2.1 % (0.0-7.0); Hematocrit 38.4 % (36.0-46.0); Hemoglobin 13.5 g/dL (12.2-16.2); Lymphocytes # (auto) 1.6 10 ^3/uL (0.4-5.4); Lymphocytes % (auto) 23.1 % (10.0-50.0); Mean Corpuscular Hemoglobin 31.1 pg (28.0-32.0); Mean Corpuscular Hgb Conc. 35.1 g/dL (32.0-36.0); Mean Corpuscular Volume 88.6 fL (80.0-100.0); Monocytes # (auto) 0.7 10 ^3/uL (0-1.3); Monocytes % (auto) 9.7 % (0.0-12.0); Neutrophils # (auto) 4.4 10 ^3/uL (1.6-8.6); Neutrophils % (auto) 64.3 % (37.0-80.0); Nucleated Red Blood Cells % 0.1 %; Platelet Count (auto) 293 10^3/uL (140-450); Red Blood Cells 4.33 10^6/uL (4.0-5.20); Red Cell Distribution Width 14.4 % (11.8-14.3); White Blood Cell 6.9 10^3/uL (4.4-10.8)
[2024-02-05 11:22] LABS: Anion Gap 10 (5-15); Calcium 10.3 mg/dL (8.7-10.4); Carbon Dioxide 24 mmol/L (20-31); Chloride 108 mmol/L (98-107); Potassium 3.5 mmol/L (3.5-5.1); Sodium 142 mmol/L (136-145)
[2024-02-05 11:27] LABS: Glucose 91 mg/dL (74-106)
[2024-02-05 11:28] LABS: BUN/Creatinine Ratio 16.4 (10.0-20.0); Blood Urea Nitrogen 12 mg/dL (9-23)
[2024-02-05 12:00] VITALS: BP 105/53; PULSE 60; RESP 18; TEMP 98.2; O2SAT 96
[2024-02-05] MEDS ORDERED: GABA-1250 PO (13:38)
[2024-02-05] MEDS ORDERED: APIX5TAB PO (15:15)
--- NOTE | 2024-02-05 17:02 | DVHPNRES ---
Progress Note Date Seen: Feb 05, 2024 Resident Creating Document: JAIME HYMAN RESIDENT Has the PT tested + for MRSA If YES, has PT been informed?: No Medical Necessity Reason Pt with a Central, PICC or Fol: No Subjective Review of Systems Chapito Greene is a 73 years old female past medical history of hypotension, recurrent UTI, DVT, PE, anxiety disorder, diverticulitis with s/p laparotomy 2 times, constipation presented to the ED with a chief complaint of generalized weakness and low blood pressure. Patient seen and examined at the bedside. Patient reported improvement in her symptoms since admission. Patient was going home today, at bedside. We will continue the patient on apixaban 5 mg b.i.d. for history of recurrent DVT and PE. Patient reports: Feels better Objective vital signs Vital Sign Date Time Temp Pulse Resp B/P (MAP) Pulse Ox O2 Delivery O2 Flow Rate FiO2 02/05/24 12:00 98.2 60 18 105/53 (70) 96 98.2 02/05/24 08:15 Room Air* 0 21 Total Intake and Output 02/04/24 02/04/24 02/05/24 15:00 23:00 07:00 Intake Total 50 ml 640 ml 125 ml Balance 50 ml 640 ml 125 ml Examination Pt is lying on bed General Appearance: Alert, Oriented X3, Cooperative, Not in acute distress HEENT: Atraumatic, Mucous membranes moist/pink Respiratory: Clear to auscultation, Normal air movement, No added sounds Cardiovascular: Regular rate, Normal S1, Normal S2, No murmurs Abdominal: Active bowel sounds, Soft, no distention, no tenderness Extremities: No edema, Normal pulses, No tenderness/swelling Skin: No Significant rash, except past surgical scars Neuro: Normal speech, sensorimotor deficits none Psych/Mental Status: Mental status NL, Mood NL Nurse was there as sharperone during examination laboratory and microbiology Laboratory Tests 02/05/24 10:20 Test 02/05/24 10:20 Range/Units Serum Glucose 91 74-106 mg/dL Microbiology Date/Time Source Procedure Growth Status 02/02/24 10:24 Voided Urine Urine Culture - Final Complete Labs and/or images reviewed: Labs reviewed by me, Image(s) reviewed by me Problem List/Assessment/Plan Problem List/Assessment/Plan # Generalized weakness and dizziness due to hypotension due to polypharmacy -CT of the head showed no evidence of acute intracranial abnormalities -chest x-ray came back grossly unremarkable -TSH is 3.37 -EKG showed sinus rhythm without evidence of ST segment elevation or depression. -D-dimer was normal range -echocardiogram showed an LVEF of 55% on 10/24/2023 -BNP was 70.21 - reconciled, titrated home medications # Acute on chronic hypoxic respiratory distress ruled out PE -chest x-ray was grossly unremarkable without evidence of consolidations -D-dimer was normal range -currently on room air saturating 97% # Hypotension likely due to UTI without sepsis -no fever, WBC on normal range 8.4, lactic acid normal, no tachycardia -urinalysis came positive for UTI -continue IV ceftriaxone -awaiting urine culture # Acute cystitis -urinalysis came positive for UTI -continue IV ceftriaxone # Hypothyroidism -TSH and normal range at 3.37 -ordered free T4 -continue levothyroxine 25 mcg q.a.m. # Prediabetes -hemoglobin A1c is 5.8% -no need for medications at this time, consult the patient on low-carbohydrate diet and lifestyle modifications # History of DVT/PE -continue on apixaban 5 mg b.i.d. # History of anxiety/depression -continue sertraline 25 mg p.o. q.d. Goals of care discussed with the patient for more than 27 minutes: Full code status Case management discussed with Dr. Erickson, patient and nurse. Patient dizziness was found to have due to polypharmacy, adjusted medications as needed. Patient is discharging today home, is here to pick her up. Plan discussed with: Patient, Spouse My Orders My Orders Orders - JAIME HYMAN RESIDENT Procedure Category Date Status Time Discharge DISCHARGE 02/05/24 Transmitted 12:13 Date of Service: Feb 05, 2024 Billing Provider: STANISLAW ERICKSON MD Common Visit Codes: 88270-FXH/OBS DISCH DAY >30min Coding Comment Comment Attending Attestation I saw and evaluated the patient. I reviewed the residents note and agree with findings and plan as documented in the residents note except as documented below. JAIME HYMAN RESIDENT Feb 05, 2024 17:02 STANISLAW ERICKSON MD Feb 05, 2024 19:01
== END 2024-02-05 14:35 | disposition home or self-care (01) | DRG 689 ==
LOC: ER 13:45 → TELE 20:30 → WEST WING 02-02 03:25 → TELE-WESTW 02-03 01:50
PROVIDERS: ADMIT Student in an Organized Health Care Education/Training Program; ATTEND Student in an Organized Health Care Education/Training Program
DX: N30.01 Acute cystitis with hematuria (principal); J96.01 Acute respiratory failure with hypoxia; E03.9 Hypothyroidism, unspecified; R73.03 Prediabetes; F41.9 Anxiety disorder, unspecified; F32.A Depression, unspecified; E66.9 Obesity, unspecified; Z82.49 Family history of ischemic heart disease and other diseases of the circulatory system; Z68.30 Body mass index [BMI] 30.0-30.9, adult; Z88.5 Allergy status to narcotic agent; Z79.899 Other long term (current) drug therapy; G90.89 Other disorders of autonomic nervous system
CPT/HCPCS: 36415; 70450; 71045; 80048; 80053; 81001; 82306; 82607; 83036; 83605; 83735; 83880; 84439; 84443; 84484; 85025; 85379; 87086; 93005; 97116; 97163; 97530; G0378; J2405

== ENCOUNTER 2024-03-05 10:14 | Day surgery (SDC) | payer MEDICARE, BC ==
[2024-02-29 14:41] LABS: Basophils # (auto) 0.1 10 ^3/uL (0-0.2); Basophils % (auto) 0.6 % (0.0-2.0); Eosinophils # (auto) 0.1 10 ^3/uL (0-0.8); Eosinophils % (auto) 0.7 % (0.0-7.0); Hematocrit 37.3 % (36.0-46.0); Hemoglobin 12.4 g/dL (12.2-16.2); Lymphocytes # (auto) 2.3 10 ^3/uL (0.4-5.4); Lymphocytes % (auto) 25.5 % (10.0-50.0); Mean Corpuscular Hemoglobin 29.7 pg (28.0-32.0); Mean Corpuscular Hgb Conc. 33.2 g/dL (32.0-36.0); Mean Corpuscular Volume 89.5 fL (80.0-100.0); Monocytes # (auto) 0.7 10 ^3/uL (0-1.3); Monocytes % (auto) 7.6 % (0.0-12.0); Neutrophils % (auto) 65.6 % (37.0-80.0); Nucleated Red Blood Cells % 0.2 %; Platelet Count (auto) 308 10^3/uL (140-450); Red Blood Cells 4.17 10^6/uL (4.0-5.20); Red Cell Distribution Width 15.1 % (11.8-14.3); White Blood Cell 9.1 10^3/uL (4.4-10.8)
[2024-02-29 14:55] LABS: INR 1.1 (0.9-1.15); Partial Thromboplastin Time 34.7 SEC (24.5-34.5); Prothrombin Time 11.6 sec (9.3-11.8)
[2024-02-29 15:09] LABS: Albumin 4.7 g/dL (3.2-4.8); Alkaline Phosphatase 140 U/L (46-116); Anion Gap 7 (5-15); Aspartate Aminotransferase 14 U/L (13-40); BUN/Creatinine Ratio 15.4 (10.0-20.0); Bilirubin, Total 0.4 mg/dL (0.2-1.0); Blood Urea Nitrogen 14 mg/dL (9-23); Calcium 10.4 mg/dL (8.7-10.4); Carbon Dioxide 28 mmol/L (20-31); Chloride 107 mmol/L (98-107); Glucose 98 mg/dL (74-106); Sodium 142 mmol/L (136-145); Total Protein 7.1 g/dL (5.7-8.2)
[2024-02-29 15:10] LABS: Alanine Aminotransferase 9 U/L (7-40)
[~2024-03-05] VITALS: Ht 157.5 cm; Wt 68.9 kg
[~2024-03-05 10:14] MED LIST changes: +APIX5TAB PO; +GABA-1250 PO; -GABA-1308 PO; +LACT10SO3 PO; -LEVO25TA6 PO; -LOPE2CAP16 PO; -MELO15TA29 PO; +METH-1181 PO; -METR-344 PO; -OMEP20TA PO; -SUCR1TAB PO
[2024-03-05] MEDS ORDERED: SODIUM CHLORIDE LOCK 10 ML ONE (11:27)
[2024-03-05] MEDS: diphenhdrAMINE HCL 50 MG/1 ML VL ONE (15:30)
[2024-03-05] MEDS: fentaNYL CITRATE 100 MCG/2 ML VL ONE (15:30)
[2024-03-05] MEDS: LIDOCAINE VISCOUS 2% 15ML UD ONE (15:30)
[2024-03-05] MEDS: MIDAZOLAM HCL 5 MG/ML-1ML VIAL ONE (15:30)
[2024-03-05 15:50] VITALS: RESP 15; TEMP 97.8; O2SAT 94
--- NOTE | 2024-03-05 15:53 | DVHOP2 ---
Operative Report DATE OF OPERATION: 03/05/24 PROCEDURE: Upper Endoscopy with biopsy. PREOPERATIVE INDICATION: The patient is a 73 -year-old female undergoing endoscopy for epigastric pain GERD and dyspepsia POSTOPERATIVE DIAGNOSES: 1. 2 cm sliding-type hiatal hernia with irregular squamocolumnar junction grade B linear erosive esophagitis with linear ulcers extending into the distal 2-3 cm of the esophagus 2. Mild gastritis and minimal duodenitis of the duodenal bulb PROCEDURE PERFORMED BY: Hortensia Aranda GI NURSE: Tanya SCOPE: Olympus videoendoscope. ASA CLASS: 2. PREOPERATIVE MEDICATIONS: Versed 2 mg, Fentanyl 50 mcg, Benadryl 50 mg I administered moderate sedation throughout this _10_ minutes procedure. An independent trained observer pushed medications at my direction, and monitored the patient's level of consciousness and physiological status throughout. PROCEDURE IN DETAIL: After obtaining an informed consent, the patient was placed on left lateral decubitus position. The patient was then sedated with the above medications. A bite block was placed between her teeth. The endoscope was then passed through the oropharynx, into the esophagus, and through the stomach and pylorus up to the second and third part of the duodenum. The endoscope was then withdrawn. The 2nd and 3rd part of the duodenal were normal. Duodenal bulb showed minimal duodenitis. Duodenal biopsies were obtained The pre-pyloric area antrum and distal body showed mild gastritis with some hyperemia erythema superficial erosions. On retroflexion the fundus cardia and angularis were normal. Gastric biopsies were obtained. The endoscope was then withdrawn into the distal esophagus Patient had a 2 cm sliding-type hiatal hernia with irregular squamocolumnar junction and grade B linear erosive esophagitis with linear ulcers extending into the distal 2-3 cm of the esophagus Distal esophageal biopsies were obtained. The remaining distal and proximal esophagus and oropharynx were normal The patient tolerated the procedure well without difficulty. COMPLICATIONS : None SPECIMENS: Duodenal biopsies Gastric biopsies Esophageal biopsies DISPOSITION: Stable D/C to home PLAN: 1. Await for biopsy result 2. Will place pt on Protonix 40 mg p.o. daily 3. Trial of Carafate 1 g p.o. twice a day 4. DC aspirin NSAIDs smoking alcohol 5. Lifestyle and dietary modifications for GERD 6. Outpatient follow up with me in 4-6 weeks to review results and discuss further management HORTENSIA ARANDA MD Mar 05, 2024 15:53
[2024-03-05 16:12] VITALS: BP 131/67; PULSE 57; RESP 13; O2SAT 94
== END 2024-03-05 16:30 | disposition home or self-care (01) ==
LOC: GI 10:14
PROVIDERS: ATTEND Internal Medicine Gastroenterology
DX: K21.00 Gastro-esophageal reflux disease with esophagitis, without bleeding (principal); K29.50 Unspecified chronic gastritis without bleeding; K44.9 Diaphragmatic hernia without obstruction or gangrene; K22.10 Ulcer of esophagus without bleeding; K29.80 Duodenitis without bleeding; K29.70 Gastritis, unspecified, without bleeding; G62.9 Polyneuropathy, unspecified; M19.90 Unspecified osteoarthritis, unspecified site; F32.A Depression, unspecified; Z90.89 Acquired absence of other organs; Z98.51 Tubal ligation status; Z88.5 Allergy status to narcotic agent; Z86.2 Personal history of diseases of the blood and blood-forming organs and certain disorders involving the immune mechanism; Z79.899 Other long term (current) drug therapy; Z85.828 Personal history of other malignant neoplasm of skin; Z91.012 Allergy to eggs; Z91.011 Allergy to milk products
CPT/HCPCS: 36415; 43239; 80053; 85025; 85610; 85730; 88305; 88312; 88342; J1200; J2250; J3010; J7030; 99152

== ENCOUNTER → 2024-04-12 | Outpatient (CLI) | payer MEDICARE, BC ==
[2024-04-12 12:42] LABS: Basophils # (auto) 0.1 10 ^3/uL (0-0.2); Basophils % (auto) 0.7 % (0.0-2.0); Eosinophils # (auto) 0.1 10 ^3/uL (0-0.8); Hematocrit 38.7 % (36.0-46.0); Hemoglobin 12.9 g/dL (12.2-16.2); Lymphocytes # (auto) 2.6 10 ^3/uL (0.4-5.4); Lymphocytes % (auto) 24.1 % (10.0-50.0); Mean Corpuscular Hemoglobin 30.2 pg (28.0-32.0); Mean Corpuscular Hgb Conc. 33.5 g/dL (32.0-36.0); Mean Corpuscular Volume 90.3 fL (80.0-100.0); Monocytes # (auto) 0.8 10 ^3/uL (0-1.3); Monocytes % (auto) 7.6 % (0.0-12.0); Neutrophils # (auto) 7.2 10 ^3/uL (1.6-8.6); Neutrophils % (auto) 66.6 % (37.0-80.0); Platelet Count (auto) 300 10^3/uL (140-450); Red Blood Cells 4.29 10^6/uL (4.0-5.20); Red Cell Distribution Width 15.4 % (11.8-14.3); White Blood Cell 10.8 10^3/uL (4.4-10.8)
[2024-04-12 13:13] LABS: Alanine Aminotransferase 11 U/L (7-40); Anion Gap 9 (5-15); Blood Urea Nitrogen 16 mg/dL (9-23); Calcium 10.1 mg/dL (8.7-10.4); Carbon Dioxide 25 mmol/L (20-31); Chloride 105 mmol/L (98-107); Glucose 91 mg/dL (74-106); Potassium 3.8 mmol/L (3.5-5.1); Sodium 139 mmol/L (136-145)
[2024-04-12 13:14] LABS: Aspartate Aminotransferase 17 U/L (13-40); Bilirubin, Total 0.3 mg/dL (0.2-1.0)
[2024-04-12 13:15] LABS: Albumin 4.9 g/dL (3.2-4.8); Alkaline Phosphatase 121 U/L (46-116); Total Protein 7.2 g/dL (5.7-8.2)
[2024-04-12 13:16] LABS: Erythrocyte Sedimentation Rate 14 mm/hr (0-20)
== END | disposition home or self-care (01) ==
LOC: LAB 11:51
PROVIDERS: ATTEND Internal Medicine
DX: I10 Essential (primary) hypertension (principal); N39.0 Urinary tract infection, site not specified; R73.03 Prediabetes
CPT/HCPCS: 36415; 80053; 85025; 85652; 86141

== ENCOUNTER → 2024-05-01 | Outpatient (CLI) | payer MEDICARE, BC | END | disposition home or self-care (01) | LOC: Rad HDHVI 10:04 | PROVIDERS: ATTEND Internal Medicine Cardiovascular Disease | DX: I15.9 Secondary hypertension, unspecified (principal) | CPT/HCPCS: 93306 ==

== ENCOUNTER → 2024-05-22 | Outpatient (CLI) | payer MEDICARE, BC ==
[~2024-05-22] VITALS: Ht 154.9 cm; Wt 68.0 kg
[~2024-05-22] MED LIST changes: +ADENOSINE 57 MG in GIVE UN-DILUTED 0 ML IV ONE; +ADENOSINE 90 MG/30 ML INJ IV ONE
== END | disposition home or self-care (01) ==
LOC: Rad HDHVI 10:02
PROVIDERS: ATTEND Internal Medicine Cardiovascular Disease
DX: R06.02 Shortness of breath (principal); I20.9 Angina pectoris, unspecified; J84.10 Pulmonary fibrosis, unspecified; R73.03 Prediabetes; I15.0 Renovascular hypertension; Z86.718 Personal history of other venous thrombosis and embolism; Z82.49 Family history of ischemic heart disease and other diseases of the circulatory system
CPT/HCPCS: 78452; 93005; A9500; J0153; 96374; 96375

== ENCOUNTER → 2024-05-27 | Outpatient (CLI) | payer MEDICARE, BC ==
[~2024-05-27] MED LIST changes: -ADENOSINE 57 MG in GIVE UN-DILUTED 0 ML IV ONE; -ADENOSINE 90 MG/30 ML INJ IV ONE
--- NOTE | 2024-05-30 19:47 | DVHNC2 ---
Procedure - May 27, 2024: 6 minute walk test interpretation. Expected heart rate achieved. Completed 6 minutes of ambulation. No exertional hypoxia. Mild reduction in distance walk. MONSE JIMENEZ RESIDENT May 30, 2024 19:47
--- NOTE | 2024-05-30 19:48 | DVHNC2 ---
Procedure - 6 minute walk test completed: May 27, 2024: No obstructive or restrictive ventilatory defect. No significant bronchodilator response. FEV1 improved by 90 mL. Total lung capacity is within normal limits, 116% of predicted (4.85 L). Mild reduction in diffusion capacity, not corrected for patient's hemoglobin (65% of predicted). MONSE JIMENEZ RESIDENT May 30, 2024 19:48
== END | disposition home or self-care (01) ==
LOC: RT 10:34
PROVIDERS: ATTEND Internal Medicine Pulmonary Disease
DX: R05.9 Cough, unspecified (principal); R06.02 Shortness of breath; R06.00 Dyspnea, unspecified
CPT/HCPCS: 36415; 82306; 84207; 84443; 94060; 94618; 94727; 94729

== ENCOUNTER → 2024-05-27 | Outpatient (CLI) | payer MEDICARE, BC | END | disposition home or self-care (01) | LOC: LAB 12:16 | PROVIDERS: ATTEND Internal Medicine | DX: E11.9 Type 2 diabetes mellitus without complications (principal); J43.9 Emphysema, unspecified; K21.00 Gastro-esophageal reflux disease with esophagitis, without bleeding; M79.7 Fibromyalgia; Z79.899 Other long term (current) drug therapy | CPT/HCPCS: 36415; 82306; 84207; 84443 ==

== ENCOUNTER 2024-09-10 13:17 | Outpatient (CLI) | payer MEDICARE, BC ==
[2024-09-10 14:11] LABS: Triglycerides 81 mg/dL (< 150)
[2024-09-10 14:12] LABS: LDL Cholesterol 148 mg/dL (< 100)
[2024-09-10 14:14] LABS: HDL Cholesterol 57 mg/dL (40-59)
[2024-09-10 14:19] LABS: Cholesterol 218 mg/dL (< 200)
== END 2024-09-10 17:00 | disposition home or self-care (01) ==
LOC: LAB 13:17
PROVIDERS: ATTEND Internal Medicine
DX: R73.03 Prediabetes (principal); Z79.899 Other long term (current) drug therapy
CPT/HCPCS: 36415; 80061; 83036

== ENCOUNTER 2024-11-12 14:34 | Outpatient (CLI) | payer MEDICARE, BC ==
[2024-11-12 15:21] LABS: Alanine Aminotransferase 18.0 U/L (7-40); Albumin 4.8 g/dL (3.2-4.8); Alkaline Phosphatase 76.0 U/L (46-116); Bilirubin, Direct 0.1 mg/dL (<0.3); Bilirubin, Total 0.4 mg/dL (0.2-1.0); Cholesterol 171.0 mg/dL (< 200); HDL Cholesterol 69.0 mg/dL (40-59); Total Protein 6.8 g/dL (5.7-8.2); Triglycerides 73.0 mg/dL (< 150)
== END 2024-11-12 17:00 | disposition home or self-care (01) ==
LOC: LAB 14:34
PROVIDERS: ATTEND Internal Medicine
DX: E78.5 Hyperlipidemia, unspecified (principal)
CPT/HCPCS: 36415; 80061; 80076

== ENCOUNTER 2024-11-19 13:38 | Outpatient (CLI) | payer MEDICARE, BC ==
[2024-11-19 14:12] LABS: Chloride 103 mmol/L (98-107); Potassium 4.0 mmol/L (3.5-5.1); Sodium 139 mmol/L (136-145)
[2024-11-19 14:13] LABS: Anion Gap 9 (5-15); Calcium 9.4 mg/dL (8.7-10.4); Carbon Dioxide 27 mmol/L (20-31)
[2024-11-19 14:18] LABS: BUN/Creatinine Ratio 16.5 (10.0-20.0); Blood Urea Nitrogen 13 mg/dL (9-23); Glucose 83 mg/dL (74-106); Lipase 30 U/L (12-53)
[2024-11-19 14:19] LABS: Amylase 65 U/L (30-118)
== END 2024-11-19 17:00 | disposition home or self-care (01) ==
LOC: LAB 13:38
PROVIDERS: ATTEND Internal Medicine
DX: R07.89 Other chest pain (principal); R10.13 Epigastric pain
CPT/HCPCS: 36415; 80048; 82150; 83690

== ENCOUNTER → 2024-11-22 | Outpatient (CLI) | payer MEDICARE, BC | END | disposition home or self-care (01) | LOC: LAB 09:12 | PROVIDERS: ATTEND Family Medicine | DX: Z01.812 Encounter for preprocedural laboratory examination (principal); D48.5 Neoplasm of uncertain behavior of skin ==

== ENCOUNTER → 2024-11-22 | Outpatient (CLI) | payer MEDICARE, BC | END | disposition home or self-care (01) | LOC: LAB 15:06 | PROVIDERS: ATTEND Internal Medicine | DX: R10.13 Epigastric pain (principal); R07.89 Other chest pain | CPT/HCPCS: 87045; 87427; 87493 ==